=== PATIENT | female | born 1945 | race Caucasian/White ===

== ENCOUNTER 2018-05-20 02:40 | Outpatient (CLI) | payer MEDICARE, SELFPAY ==
[2018-05-20 08:56] LABS: BUN 23 mg/dL (7-18); CREATININE 1.16 mg/dL (0.55-1.02); Calcium 9.5 mg/dL (8.5-10.1); Chloride 104 mmol/L (98-107); Estimated GFR 46.19 (mL/min/1.73m2); Glucose 107 mg/dL (70-100); Potassium 3.8 mmol/L (3.5-5.1); Sodium 142 mmol/L (136-145)
[2018-05-20 09:23] LABS: Hemoglobin A1C 6.9 % (4.5-6.2)
== END 2018-05-20 03:00 ==
PROVIDERS: PCP Family Medicine; Visit Provider Family Medicine
DX: E11.9 Type 2 diabetes mellitus without complications (principal); E87.6 Hypokalemia
CPT/HCPCS: 36415; 80048; 83036

== ENCOUNTER 2018-05-27 15:27 | Outpatient (REF) | payer MEDICARE, SELFPAY ==
[2018-05-27 20:43] LABS: NT-proBNP 5371 pg/mL
== END 2018-05-27 15:47 ==
LOC: NCHCN 15:27
PROVIDERS: PCP Family Medicine; Visit Provider Specialist/Technologist Athletic Trainer
DX: I50.9 Heart failure, unspecified (principal); R60.0 Localized edema
CPT/HCPCS: 83880

== ENCOUNTER 2019-07-20 20:20 | Outpatient (REF) | payer MEDICARE, SELFPAY | END 2019-07-20 20:40 | LOC: NCHCN 20:20 | PROVIDERS: PCP Family Medicine; Visit Provider Family Medicine | DX: N39.0 Urinary tract infection, site not specified (principal) | CPT/HCPCS: 87086 ==

== ENCOUNTER 2019-08-05 08:43 | Outpatient (CLI) | payer MEDICARE, SELFPAY | END 2019-08-05 09:03 | PROVIDERS: PCP Family Medicine; Visit Provider Family Medicine | DX: N39.0 Urinary tract infection, site not specified (principal) | CPT/HCPCS: 36415; 80048; 83036; 87086 ==

== ENCOUNTER 2019-08-27 08:14 | Outpatient (CLI) | payer MEDICARE, SELFPAY ==
[2019-08-27 10:07] LABS: BUN 25 mg/dL (7-18); CREATININE 1.15 mg/dL (0.55-1.02); Calcium 9.5 mg/dL (8.5-10.1); Chloride 103 mmol/L (98-107); Estimated GFR 46.52 (mL/min/1.73m2); Glucose 209 mg/dL (74-106); Potassium 4.9 mmol/L (3.5-5.1); Sodium 141 mmol/L (136-145)
[2019-08-27 10:48] LABS: Hemoglobin A1C 8.7 % (3.8-5.6)
== END 2019-08-27 08:34 ==
PROVIDERS: PCP Family Medicine; Visit Provider Family Medicine
DX: E11.9 Type 2 diabetes mellitus without complications (principal); E87.6 Hypokalemia
CPT/HCPCS: 36415; 80048; 83036

== ENCOUNTER 2019-09-29 08:41 | Outpatient (CLI) | payer MEDICARE, SELFPAY ==
[2019-09-29 14:58] LABS: Anion Gap 10.3 mmol/L (3-11); BUN 32 mg/dL (7-18); CO2 23.7 mmol/L (21.0-32.0); CREATININE 1.51 mg/dL (0.55-1.02); Calcium 9.6 mg/dL (8.5-10.1); Chloride 101 mmol/L (98-107); Estimated GFR 33.97 (mL/min/1.73m2); Glucose 255 mg/dL (74-106); Potassium 5.5 mmol/L (3.5-5.1); Sodium 135 mmol/L (136-145)
== END 2019-09-29 09:01 ==
PROVIDERS: PCP Family Medicine; Visit Provider Internal Medicine Cardiovascular Disease
DX: I50.20 Unspecified systolic (congestive) heart failure (principal); I25.5 Ischemic cardiomyopathy; Z79.899 Other long term (current) drug therapy
CPT/HCPCS: 36415; 80048

== ENCOUNTER 2019-10-19 02:25 | Outpatient (CLI) | payer MEDICARE, SELFPAY ==
[2019-10-19 08:59] LABS: Anion Gap 9.4 mmol/L (3-11); BUN 32 mg/dL (7-18); CO2 26.6 mmol/L (21.0-32.0); CREATININE 1.39 mg/dL (0.55-1.02); Calcium 9.7 mg/dL (8.5-10.1); Chloride 103 mmol/L (98-107); Estimated GFR 37.38 (mL/min/1.73m2); Glucose 220 mg/dL (74-106); Magnesium 1.6 mg/dL (1.8-2.4); Sodium 139 mmol/L (136-145)
== END 2019-10-19 02:45 ==
PROVIDERS: PCP Family Medicine; Visit Provider Family Medicine
DX: E87.6 Hypokalemia (principal)
CPT/HCPCS: 36415; 80048; 83735

== ENCOUNTER 2020-03-28 01:40 | Outpatient (CLI) | payer MEDICARE, SELFPAY ==
[2020-03-28 09:16] LABS: HCT 35.9 % (36.0-46.0); HGB 11.8 g/dL (11.2-15.7); MCH 29.9 pg (27.0-33.0); MCHC 32.9 % (32.0-36.0); MCV 91.1 fL (80-95); MPV 11.4 fL (8.0-11.0); Platelet Count 283 10^3/uL (130-400); RBC 3.94 10^6/uL (3.93-5.22); RDW 12.4 % (11.7-14.6); RDW-SD 40.8 fL; WBC 6.83 10^3/uL (4.4-10.8)
[2020-03-28 09:24] LABS: Hemoglobin A1C 9.4 % (3.8-5.6)
[2020-03-28 10:32] LABS: ALT 17 U/L (14-59); AST 12 U/L (15-37); Alkaline Phosphatase 66 U/L (46-116); Anion Gap 9.5 mmol/L (3-11); BUN 23 mg/dL (7-18); Bilirubin, Total 0.3 mg/dL (0.2-1.0); CO2 25.5 mmol/L (21.0-32.0); CREATININE 1.29 mg/dL (0.55-1.02); Calcium 9.6 mg/dL (8.5-10.1); Calculated LDL 65 mg/dL (<100); Chloride 103 mmol/L (98-107); Cholesterol 129 mg/dL (<200); Estimated GFR 40.62 (mL/min/1.73m2); Glucose 158 mg/dL (74-106); HDL Cholesterol 29 mg/dL (40-60); Magnesium 1.6 mg/dL (1.8-2.4); Potassium 4.9 mmol/L (3.5-5.1); Sodium 138 mmol/L (136-145); Total Protein 7.4 g/dL (6.4-8.2); Triglyceride 178 mg/dL (<150)
== END 2020-03-28 02:00 ==
PROVIDERS: PCP Family Medicine; Referring Provider Internal Medicine Cardiovascular Disease; Visit Provider Family Medicine
DX: I25.5 Ischemic cardiomyopathy (principal); E87.6 Hypokalemia; E11.9 Type 2 diabetes mellitus without complications; I10 Essential (primary) hypertension; E78.5 Hyperlipidemia, unspecified
CPT/HCPCS: 36415; 80053; 80061; 85027; 83036; 83735

== ENCOUNTER 2020-09-07 01:18 | Outpatient (CLI) | payer MEDICARE, SELFPAY ==
--- NOTE | 2020-09-07 | DI.DEXA_ITS ---
EXAM: XR DEXA BONE DENSITY W/WO KELSIE CLINICAL HISTORY: SCREENING FOR OSTEOPOROSIS IN POSTMENOPAUSAL WOMAN,Z78.0,PRE RADIATION TECHNIQUE: COMPARISON: CR LUMBAR SPINE COMPLETE from 09/16/2014 FINDINGS: DEXA scan was performed according to the usual protocol. Please see the accompanying data sheets. F indings for lumbar spine scanning are T-score -0.3. Findings for left hip scanning are T-score -1.0 with left femoral neck T-score -1.5. Left forearm scanning shows T-score -1.7. IMPRESSION: Findings consistent with osteopenia according to WHO criteria. Please note that the lateral vertebral scanogram shows no evidence of a vertebral compression fractur e. RADIATION DOSE DELIVERED: Total DLP
== END 2020-09-07 01:38 ==
PROVIDERS: PCP Family Medicine; Visit Provider Family Medicine
DX: Z78.0 Asymptomatic menopausal state (principal)
CPT/HCPCS: 77080

== ENCOUNTER 2020-09-28 00:50 | Outpatient (CLI) | payer MEDICARE, SELFPAY ==
--- NOTE | 2020-09-28 | DI.US_ITS ---
EXAM: US THYROID CLINICAL HISTORY: CT SIM FOR RADIATION SHOWED MULTINODULAR GOITER,E04.2. TECHNIQUE: Ultrasound thyroid performed using standard protocol. COMPARISON: No exams were available for comparison FINDINGS: ISTHMUS: 6 mm Nodules: There is a 2.7 x 1 x 2.7 cm solid hypoechoic smoothly marginated mass. This corresponds to the finding seen on the CT scan. No internal echogenic foci are seen. The findings are consistent w ith a TI-RADS level 4 nodule. RIGHT LOBE: Size: 6.2 X 1.8 X 1.8 cm Echogenicity: Normal. Vascularity: Normal. Nodules: Multiple right thyroid nodules. No suspicious nodules are seen. There are 2 spongiform typ e nodules present. These are TI-RADS level 1 nodules. LEFT LOBE: Size: 5.9 x 2 x 1.9 cm Echogenicity: Normal. Vascularity: Normal. Nodules: Multiple thyroid nodules. There is a 1.4 x 1.4 x 1.2 cm mixed cystic and solid nodule. The solid component is hyperechoic. Echogenic foci are seen peripherally. This is a TI-RADS level 4 no dule. No other suspicious nodules are seen. OTHER FINDINGS: None. IMPRESSION: 1. Enlarged multinodular thyroid gland. 2. Moderately suspicious nodules (TI-RADS level 4) seen in the isthmus and the left lobe as described above. DATA REPOSITORY:
--- NOTE | 2020-09-28 14:52 | DI.CT_ITS ---
EXAM: CT CHEST WO CLINICAL HISTORY: CT SIM FOR RADIATION SHOWED NODULAR OPACITY,LUNG NODULE,R91.1. TECHNIQUE: Imaging protocol: Axial computed tomography images were obtained and coronal and sagittal reformatted images were created and reviewed. COMPARISON: CT CT RAD ONC CHEST INTER from 09/12/2020 FINDINGS: Tracheobronchial tree: Patent where visualized. Pulmonary parenchyma: There is a 7 mm noncalcified triangular nodule associated with the right minor fissure. Its location and appearance is most suggestive of an intrapulmonary lymph node. (Series 7, image 351). No other pulmonary nodules are identified. No consolidating infiltrates are seen. No architectural distortion. Mediastinum and Priscilla: No dominant adenopathy or fluid collection. Pleura: No effusion or pneumothorax. Heart: Heart is moderately enlarged. Marked coronary artery calcification is present. No pericardia l effusion. There is calcification of the aortic valve. Aorta: Thoracic aorta non-dilated. Mild atherosclerosis is present. Upper abdomen: There is bilateral nephrolithiasis. The largest stone is on the left and measures 1. 1 cm. The spleen is unchanged in appearance. Lymph nodes: Within normal limits. Thyroid gland: There are thyroid nodules present the largest is seen in the isthmus and measures 2.9 cm transversely. Soft tissues: The patient is status post left lumpectomy and left axillary node dissection. There is again seen a fluid collection in the surgical bed. Bones:No suspicious lytic or sclerotic lesions are seen in the bones. Several old/healing right rib fractures are present. IMPRESSION: 1. 7 mm noncalcified lymph node associated with the right minor fissure. Its finding is most suggest edwina of an intrapulmonary lymph node. 2. Thyroid nodules with a dominant nodule in the isthmus. Please refer to the ultrasound of the thyr oid scan for further details. 3. Status post left lumpectomy and left axillary node dissection with a fluid collection again seen i n the surgical bed. RADIATION DOSE DELIVERED: 532.51mGy.cm Total DLP 532.51mGy.cm Total DLP DATA REPOSITORY: All CT scans at this facility are submitted to the National Radiology Data Registry (NRDR) Dose Index Registry (DIR) with the [employer] ([employer]). RADIATION OPTIMIZATION: All CT scans at this facility use at least one of these dose optimization te chniques: automated exposure control; mA and/or kV adjustment per patient size (includes targeted exa ms where dose is matched to clinical indication); or iterative reconstruction.
== END 2020-09-28 00:51 | disposition home or self-care (01) ==
PROVIDERS: PCP Family Medicine; Visit Provider Radiology Radiation Oncology
DX: R91.1 Solitary pulmonary nodule (principal); E04.2 Nontoxic multinodular goiter
CPT/HCPCS: 71250; 76536

== ENCOUNTER 2020-10-05 01:23 | Outpatient (CLI) | payer MEDICARE, SELFPAY ==
--- NOTE | 2020-10-05 | DI.MRI_ITS ---
EXAM: MR ABDOMEN WO CLINICAL HISTORY: BREAST CA,CT SIM FOR RADIATION SHOWED LOBULATED APPEARANCE SPLEEN,? LESION TECHNIQUE: Multiplanar multisequence MRA of the Abdomen was performed. COMPARISON: MR MRI - LUMBAR SPINE WO CONTRAST from 06/26/2015 MR MRI - LUMBAR SPINE WO CONTRAST from 06/26/[address] CHEST WO from 09/28/[address] CHEST WO from 09/28/2020 FINDINGS: No pleural effusions are seen at the lung bases. The liver and spleen show normal signal. There is no evidence of a splenic mass. No liver lesions are identified. The gallbladder, adrenals and pancr eas are unremarkable. There is no biliary dilatation. There are few tiny renal cysts. There is no evidence of hydronephrosis. No bowel dilatation or ascites is seen. There are degenerative disc gamaliel nges at L2-3. A nonobstructing stone is seen in the mid left kidney. Other smaller stones were seen on a previous CT which are not well demonstrated on the current exam. IMPRESSION: No evidence of a splenic mass. The inferior portion of the spleen has a mildly lobulated contour whi ch is within normal limits of variation. DATA REPOSITORY:
[2020-10-05 09:41] LABS: CREATININE 1.7 mg/dL (0.55-1.02); Estimated GFR 29.54 (mL/min/1.73m2)
== END 2020-10-05 01:24 ==
LOC: DI 01:24
PROVIDERS: PCP Family Medicine; Visit Provider Radiology Radiation Oncology
DX: R93.5 Abnormal findings on diagnostic imaging of other abdominal regions, including retroperitoneum (principal)
CPT/HCPCS: 74181; 82565

== ENCOUNTER 2021-01-30 03:35 | Outpatient (CLI) | payer MEDICARE, SELFPAY ==
[2021-01-30 12:51] LABS: Abs Immature Grans 0.02 10^3/uL (0.0-0.06); Absolute Basophil Count 0.06 10^3/uL (0.0-0.2); Absolute Lymphocyte Count 0.83 10^3/uL (1.2-3.4); Absolute Monocyte Count 0.54 10^3/uL (0.1-0.8); Absolute Neutrophil Count 4.41 10^3/uL (1.2-6.7); Eosinophils % 3.3; HCT 32.3 % (36.0-46.0); Immature Grans % 0.3; Lymphocytes % 13.7; MCH 29.6 pg (27.0-33.0); MCV 95.6 fL (80-95); MPV 11.6 fL (8.0-11.0); Monocytes % 8.9; Neutrophils % 72.8; Nucleated RBC 0 %; Platelet Count 301 10^3/uL (130-400); RBC 3.38 10^6/uL (3.93-5.22); RDW 15.9 % (11.7-14.6); RDW-SD 56.2 fL; WBC 6.06 10^3/uL (4.4-10.8)
[2021-01-30 13:06] LABS: Hemoglobin A1C 7.6 % (<5.7)
[2021-01-30 13:24] LABS: ALT 18 U/L (14-59); AST 11 U/L (15-37); Alkaline Phosphatase 65 U/L (46-116); Anion Gap 8.9 mmol/L (3-11); BUN 29 mg/dL (7-18); Bilirubin, Total 0.7 mg/dL (0.2-1.0); CO2 26.1 mmol/L (21.0-32.0); CREATININE 1.6 mg/dL (0.55-1.02); Calcium 9.4 mg/dL (8.5-10.1); Chloride 103 mmol/L (98-107); Glucose 167 mg/dL (74-106); Potassium 5.7 mmol/L (3.5-5.1); Sodium 138 mmol/L (136-145); Total Protein 7.3 g/dL (6.4-8.2)
== END 2021-01-30 03:36 | disposition home or self-care (01) ==
LOC: LOS 03:36
PROVIDERS: PCP Family Medicine; Visit Provider Family Medicine
DX: E11.9 Type 2 diabetes mellitus without complications (principal); C50.912 Malignant neoplasm of unspecified site of left female breast
CPT/HCPCS: 36415; 80053; 83036; 85025

== ENCOUNTER 2021-02-05 11:41 | Outpatient (REF) | payer MEDICARE, SELFPAY ==
[2021-02-05 14:21] LABS: HCT 32.1 % (36.0-46.0); HGB 10.1 g/dL (11.2-15.7)
[2021-02-05 15:04] LABS: BUN 35 mg/dL (7-18); CREATININE 1.5 mg/dL (0.55-1.02); Calcium 9.6 mg/dL (8.5-10.1); Chloride 106 mmol/L (98-107); Estimated GFR 34.04 (mL/min/1.73m2); Glucose 155 mg/dL (74-106); Potassium 5.3 mmol/L (3.5-5.1); Sodium 141 mmol/L (136-145); Vitamin B12 297 pg/mL (193-986)
[2021-02-05 15:05] LABS: Folate > 20.0 ng/mL (8.6-20.0)
[2021-02-12 11:46] LABS: Methylmalonic Acid 0.42 nmol/mL (<=0.40)
== END 2021-02-05 11:42 | disposition home or self-care (01) ==
LOC: NCHCN 11:41
PROVIDERS: PCP Family Medicine; Visit Provider Family Medicine
DX: D64.9 Anemia, unspecified (principal); E11.9 Type 2 diabetes mellitus without complications; Z00.00 Encounter for general adult medical examination without abnormal findings
CPT/HCPCS: 80048; 80186; 82607; 82746; 85014; 85018

== ENCOUNTER 2021-03-29 12:30 | Outpatient (REF) | payer MEDICARE, SELFPAY ==
[2021-03-29 19:48] LABS: HCT 36.5 % (36.0-46.0); HGB 11.7 g/dL (11.2-15.7); MCH 28.7 pg (27.0-33.0); MCHC 32.1 % (32.0-36.0); MCV 89.7 fL (80-95); MPV 11.8 fL (8.0-11.0); Platelet Count 308 10^3/uL (130-400); RBC 4.07 10^6/uL (3.93-5.22); RDW 13.5 % (11.7-14.6); RDW-SD 44.5 fL; WBC 7.23 10^3/uL (4.4-10.8)
[2021-03-29 19:50] LABS: ESR 25 mm/hr (0-30)
[2021-03-29 19:59] LABS: ALT 16 U/L (14-59); AST 15 U/L (15-37); Albumin 3.8 g/dL (3.4-5.0); Alkaline Phosphatase 71 U/L (46-116); Anion Gap 8.3 mmol/L (3-11); BUN 24 mg/dL (7-18); Bilirubin, Total 0.3 mg/dL (0.2-1.0); C-Reactive Protein 0.73 mg/dL (0.0-0.3); CO2 25.7 mmol/L (21.0-32.0); CREATININE 1.3 mg/dL (0.55-1.02); Calcium 9.8 mg/dL (8.5-10.1); Chloride 105 mmol/L (98-107); Estimated GFR 40.15 (mL/min/1.73m2); Glucose 138 mg/dL (74-106); Potassium 4.8 mmol/L (3.5-5.1); Sodium 139 mmol/L (136-145); Total Protein 7.5 g/dL (6.4-8.2)
== END 2021-03-29 12:31 | disposition home or self-care (01) ==
LOC: NCHCN 12:30
PROVIDERS: PCP Family Medicine; Visit Provider Family Medicine
DX: D64.9 Anemia, unspecified (principal); R19.7 Diarrhea, unspecified; R10.9 Unspecified abdominal pain; I25.10 Atherosclerotic heart disease of native coronary artery without angina pectoris
CPT/HCPCS: 80053; 85027; 85652; 86140

== ENCOUNTER 2021-05-04 11:28 | Outpatient (REF) | payer MEDICARE, SELFPAY ==
[2021-05-04 19:51] LABS: ESR 26 mm/hr (0-30)
[2021-05-04 19:57] LABS: ALT 17 U/L (14-59); AST 15 U/L (15-37); Albumin 4.1 g/dL (3.4-5.0); Alkaline Phosphatase 74 U/L (46-116); Anion Gap 11.5 mmol/L (3-11); BUN 28 mg/dL (7-18); Bilirubin, Total 0.6 mg/dL (0.2-1.0); C-Reactive Protein 0.22 mg/dL (0.0-0.3); CO2 25.5 mmol/L (21.0-32.0); CREATININE 1.7 mg/dL (0.55-1.02); Chloride 103 mmol/L (98-107); Creatine Kinase 35 U/L (26-192); Estimated GFR 29.46 (mL/min/1.73m2); Glucose 123 mg/dL (74-106); Potassium 5.1 mmol/L (3.5-5.1); Sodium 140 mmol/L (136-145); Total Protein 7.7 g/dL (6.4-8.2)
== END 2021-05-04 11:29 | disposition home or self-care (01) ==
LOC: NCHCN 11:28
PROVIDERS: PCP Family Medicine; Referring Provider Family Medicine; Visit Provider Family Medicine
DX: E53.8 Deficiency of other specified B group vitamins (principal); E87.6 Hypokalemia; M79.18 Myalgia, other site
CPT/HCPCS: 80053; 80186; 82550; 85652; 86140

== ENCOUNTER 2021-05-25 02:26 | Outpatient (CLI) | payer MEDICARE, SELFPAY ==
--- NOTE | 2021-05-25 | DI.US_ITS ---
Exam(s) US CAROTID EXAM: US CAROTID CLINICAL HISTORY: LT CAROTID BRUIT,R09.89,? STENOSIS. TECHNIQUE: Ultrasound carotids performed using grayscale, color-flow, and spectral Doppler imaging. COMPARISON: No exams were available for comparison FINDINGS: RIGHT CAROTID ARTERY: Plaque: Calcific plaque is seen in the carotid bulb, common carotid artery and the proximal ICA. Velocity elevation: None. LEFT CAROTID ARTERY: Plaque: Calcific plaque is seen in the carotid bulb. Velocity elevation: None. VERTEBRAL ARTERIES: Antegrade flow. Measurements: R Bulb: 78.4cm/s PS / 17.4cm/s ED R CCA: 69.4cm/s PS / 17.4cm/s ED R ECA: PS / ED R ICA Prox: 82.3cm/s PS /21.2cm/s ED R ICA Mid: 87.6cm/s PS / 28.9cm/s ED R ICA Distal: 90.9cm/s PS /30.6cm/s ED R Vert: 60.3cm/s PS / 19.8cm/s ED R SVR: 1.31 R DVR: 1.76 L Bulb: 67.8cm/s PS /13.2cm/s ED L CCA: 81cm/s PS / 19cm/s ED L ECA: PS / ED L ICA Prox:68.8cm/s PS / 17.4cm/s ED L ICA Mid: 73.2cm/sPS / 26cm/s ED L ICA Distal: 72.1cm/s PS / 24.6cm/s ED L Vert: 44cm/s PS / 14.8cm/s ED L SVR: 0.9 L DVR: 1.37 IMPRESSION: No evidence for hemodynamically significant carotid stenosis. Criteria for Carotid Stenosis: Normal: ICA PSV <125 cm/s no plaque or intimal thickening is visible. <50% stenosis: ICA PSV <125 cm/s and plaque or intimal thickening is visible. 50-69% stenosis: ICA PSV is 125-250 cm/s and plaque is visible. >70% stenosis to near occlusion: ICA PSV >250 cm/s with visible plaque and luminal narrowing. DATA REPOSITORY:
== END 2021-05-25 02:46 ==
PROVIDERS: PCP Family Medicine; Visit Provider Internal Medicine Cardiovascular Disease
DX: R09.89 Other specified symptoms and signs involving the circulatory and respiratory systems (principal); I77.89 Other specified disorders of arteries and arterioles
CPT/HCPCS: 93880

== ENCOUNTER 2021-07-24 01:35 | Outpatient (CLI) | payer MEDICARE, SELFPAY ==
--- NOTE | 2021-07-24 | DI.US_ITS ---
APPROVED REPORT EXAM: Comprehensive 2D, Doppler, and color-flow Echocardiogram Patient Location: Out-Patient [employer] Technician: Rosibel Mercer RDCS (AE) Indications: CAD without again, Ischemic cardiomyopathy, breast Cancer, Thyroid Cancer Other Information Study Quality: Fair. Technically limited study due to body habitus. Conclusion Left ventricle is mildly to moderately dilated. Wall thickness is normal. Estimated ejection fracti on is 25 to 30% with severe global hypokinesis Mildly dilated and hypocontractile right ventricle. Device lead seen in the right ventricle Both atria are mildly dilated. Device lead noted in the right atrium Aortic valve is sclerotic and trileaflet without stenosis or regurgitation Mild mitral annular calcification. Moderate mitral regurgitation Normal tricuspid valve with trace to mild regurgitation. Estimated right ventricular systolic pressu re is 48 mmHg, moderate pulmonary hypertension Wall motion Left Ventricle Left ventricle is mild to moderately dilated. Left ventricular systolic function is severely decrease d. There is normal left ventricular wall thickness. There is global hypokinesis of the left ventricle . There is no ventricular septal defect visualized. LVEF is 25-30%. Right Ventricle Right ventricle is mildly dilated. Right ventricle is mildly hypokinetic. The RVSP is 48.5 mmHg. Pace maker lead is present in the right ventricle. Atria Left atrium is mildly dilated. Right atrium is mildly dilated. The interatrial septum is intact with no evidence for an atrial septal defect. Aortic Valve The Aortic valve is sclerotic. Aortic valve is trileaflet. There is no aortic valvular stenosis. No a ortic regurgitation is present. Mitral Valve Mild mitral annular calcification. No evidence of mitral valve stenosis. moderate mitral regurgitatio n. Tricuspid Valve The tricuspid valve is normal in structure. There is no tricuspid valve stenosis. Trace to mild tricu spid regurgitation. Pulmonic Valve The pulmonary valve is normal in structure. There is no pulmonic valvular stenosis. Trace pulmonic re gurgitation. Great Vessels The aortic root is normal in size. The ascending aorta is normal in size. Aortic arch is not well vis ualized. The IVC is normal in size and collapses >50% with inspiration. Pericardium There is no pericardial effusion. 2D Dimensions IVSD d PLAX 0.92 cm F: 0.6-1.0 LV Vol A2C d MOD 164.3 mL LVPW d PLAX 0.92 cm F: 0.6 - 1.0 LV Vol A4C d MOD 161.6 mL LVID d PLAX 6.18 cm F: 3.8 - 5.2 LA vol/ BSA A2C s A-L 36.3 mL/m2 LVDs 5.15 cm F: 2.2 - 3.5 LA vol/ BSA A4C s A-L 35.4 mL/m2 Ao Root d 2.80 cm F: 2.7 - 3.3 LA Vol/ BSA Biplane s A-L 36.5 mL/m2 RA Area A4C 23.42 cm2 LA Area A4C s MOD 21.15 cm2 RA Vol/ BSA A4C s A-L 47.4 mL/m2 LA Area A2C s MOD 21.78 cm2 Ao Asc Diam d 3.11 cm F: 2.3 - 3.1 LV EF A4C MOD 35.1 % LV EF Teichholz 32.9 % LV EF A2C MOD 30.2 % LVEF ([place]'s) 31.97 % F: 54 - 74 LV EF Biplane MOD 32.0 % LV Volume 126.98 mL F: 46 - 106 SV 52.60 mL LV Volume Index 69.01 mL/m2 F: 29 - 61 SV Index 28.60 mL/m2 LV Vol Biplane MOD 164.5 mL FS 15.90 % M-Mode TAPSE 1.88 cm (M/F) >1.7 LV Diastology MV E' medial 0.036 (>0.07 m/s) E/A Ratio 3.0 LV E/e MED 32.85 (<14) MV E Vmax 1.18 (0.4-1.3 m/s) MV E' lateral 0.059 (>0.1 m/s) MV A Vmax 0.40 (0.4-1.3 m/s) LV E/e LAT 19.80 (<14) MV E/A Ratio 2.87 MV E/E' medial 32.86 MV E/E' lateral 19.81 Aortic Valve LVOT Area 2.63 cm2 AoV Area Vmax 2.29 cm2 LVOT Vmax 0.90 m/s AoV Area/ BSA (Vmax) 1.25 cm2/m2 LVOT Mean Jerad. 0.57 m/s HARSH Mean Jerad. 1.99 cm2 LVOT Peak Grad 3.2 mmHg HARSH Mean Jerad. Index 1.08 cm2/m2 LVOT Mean Grad 1.5 mmHg LVOT VTI 0.168 m LVOT Diam s 1.80 cm AoV Vmax 1.03 m/s Velocity Ratio 0.87 AoV Mean Jerad. 0.75 m/s AoV Peak Grad 4.3 mmHg LVOT SV 44.30 mL AoV Mean Grad 2.5 mmHg AoV VTI 0.224 m AoV Area VTI 1.98 cm2 AoV Area/ BSA (VTI) 1.08 cm/m2 Mitral Valve MV DT 206 (160-240 msec) MR Vmax 4.13 m/s MV PHT 60 msec MR VTI 1.520 m MV Area PHT 3.69 cm2 MR Peak Grad 68.3 mmHg MV VTI 0.290 m MR Mean Grad 55.8 mmHg MV Area VTI 1.53 (4.0-6.0 cm2) MR PISA Radius 0.52 cm MR EROA 0.14 cm2 MR Aliasing Velocity 0.35 m/s MR PISA 1.68 cm2 Pulmonary Valve PV Vmax 0.72 (0.5-1.5 m/s) RVOT Peak Gr. 0.90 mmHg PV Peak Grad 2.1 mmHg RVOT Mean Gr. 0.45 mmHg PV Mean Grad 1.0 mmHg RVOT VTI 0.101 m PV VTI 0.134 m RVOT Vmax 0.47 m/s Tricuspid Valve TR Peak Grad 45.5 mmHg TR Vmax 3.37 m/s RA Pressure 3.00 mmHg RVSP (TR) 48.5 mmHg
== END 2021-07-24 01:55 ==
PROVIDERS: PCP Family Medicine; Visit Provider Internal Medicine Cardiovascular Disease
DX: I25.10 Atherosclerotic heart disease of native coronary artery without angina pectoris (principal); I25.5 Ischemic cardiomyopathy; Z85.3 Personal history of malignant neoplasm of breast; Z85.850 Personal history of malignant neoplasm of thyroid; Z95.0 Presence of cardiac pacemaker; I34.0 Nonrheumatic mitral (valve) insufficiency; I27.20 Pulmonary hypertension, unspecified
CPT/HCPCS: 93306

== ENCOUNTER 2021-08-09 14:38 | Outpatient (REF) | payer MEDICARE, SELFPAY ==
[2021-08-09 19:31] LABS: HCT 30.8 % (36.0-46.0); HGB 9.7 g/dL (11.2-15.7); MCH 30.1 pg (27.0-33.0); MCHC 31.5 % (32.0-36.0); MCV 95.7 fL (80-95); MPV 11.3 fL (8.0-11.0); Platelet Count 381 10^3/uL (130-400); RBC 3.22 10^6/uL (3.93-5.22); RDW-SD 51.8 fL; WBC 7.74 10^3/uL (4.4-10.8)
[2021-08-09 19:55] LABS: ALT 21 U/L (14-59); AST 14 U/L (15-37); Albumin 3.8 g/dL (3.4-5.0); Alkaline Phosphatase 71 U/L (46-116); Anion Gap 11.5 mmol/L (3-11); BUN 31 mg/dL (7-18); Bilirubin, Total 0.5 mg/dL (0.2-1.0); CO2 23.5 mmol/L (21.0-32.0); CREATININE 1.6 mg/dL (0.55-1.02); Calcium 9.1 mg/dL (8.5-10.1); Chloride 102 mmol/L (98-107); Glucose 204 mg/dL (74-106); NT-proBNP 21240 pg/mL (<300); Potassium 4.5 mmol/L (3.5-5.1); Sodium 137 mmol/L (136-145); Total Protein 7.3 g/dL (6.4-8.2)
== END 2021-08-09 14:39 | disposition home or self-care (01) ==
LOC: NCHCN 14:38
PROVIDERS: PCP Family Medicine; Visit Provider Family Medicine
DX: I25.10 Atherosclerotic heart disease of native coronary artery without angina pectoris (principal); I10 Essential (primary) hypertension; D64.9 Anemia, unspecified; E11.9 Type 2 diabetes mellitus without complications; I50.9 Heart failure, unspecified
CPT/HCPCS: 80053; 85027; 83036; 83735; 83880

== ENCOUNTER 2021-08-29 14:58 | Outpatient (REF) | payer MEDICARE, SELFPAY ==
[2021-08-29 12:39] LABS: Abs Immature Grans 0.02 10^3/uL (0.0-0.06); Absolute Basophil Count 0.11 10^3/uL (0.0-0.2); Absolute Lymphocyte Count 1.36 10^3/uL (1.2-3.4); Absolute Monocyte Count 0.76 10^3/uL (0.1-0.8); Absolute Neutrophil Count 4.97 10^3/uL (1.2-6.7); Basophils % 1.5; HCT 38.7 % (36.0-46.0); HGB 12.2 g/dL (11.2-15.7); Immature Grans % 0.3; Lymphocytes % 18.1; MCH 29.3 pg (27.0-33.0); MCHC 31.5 % (32.0-36.0); MCV 92.8 fL (80-95); MPV 11.9 fL (8.0-11.0); Monocytes % 10.1; Nucleated RBC 0 %; Platelet Count 357 10^3/uL (130-400); RBC 4.17 10^6/uL (3.93-5.22); RDW 13.7 % (11.7-14.6); RDW-SD 46.9 fL; WBC 7.52 10^3/uL (4.4-10.8)
[2021-08-29 12:47] LABS: Iron 101 ug/dL (50-170); Total Iron Binding Capacity 348 ug/dL (250-450); Transferrin Sat 29 % (15-50)
[2021-08-29 13:02] LABS: BUN 33 mg/dL (7-18); CREATININE 1.6 mg/dL (0.55-1.02); Calcium 9.8 mg/dL (8.5-10.1); Chloride 98 mmol/L (98-107); Ferritin 61 ng/mL (8-252); Glucose 302 mg/dL (74-106); Potassium 5.3 mmol/L (3.5-5.1); Sodium 136 mmol/L (136-145)
[2021-08-31 08:50] LABS: NT-proBNP 5445 pg/mL (<300)
== END 2021-08-29 14:59 | disposition home or self-care (01) ==
LOC: NCHCN 14:58
PROVIDERS: PCP Family Medicine; Visit Provider Family Medicine
DX: D64.9 Anemia, unspecified (principal); I10 Essential (primary) hypertension
CPT/HCPCS: 80048; 82728; 83540; 83550; 83880; 85025

== ENCOUNTER 2021-10-06 19:52 | Inpatient (IN) | payer MEDICARE, SELFPAY ==
[2021-10-06] VITALS (73 sets, daily range): BP systolic 72–110; BP diastolic 41–54; PULSE 81–102; RESP 14–29; TEMP 36.8–37.4; O2SAT 93–96
--- NOTE | 2021-10-06 20:15 | RT.EKG_ITS ---
APPROVED REPORT Exam: Resting ECG Reason for Exam: Weakness Patient Location: E HR:94 bpm ECG Measurements Heart Rate 94 AXIS MN 241 P 20 QRSd 130 QRS 21 QT 365 T 157 QTc 457 Conclusion Atrial-sensed ventricular-paced rhythm...ventricular pacing tracks p-waves
--- NOTE | 2021-10-06 20:20 | ED.GENADUL_ITS ---
Discharge Plan Disposition Patient Disposition: [facility] Condition: Fair Discharge Details Clinical Impression: Non-ST elevation GA (NSTEMI), Elevated troponin I level, Acute kidney injury Attending Provider: Clarence Bustamante Primary Care Provider: Maya Shi V ED Provider: Guillermina Parikh Discharge Data Discharge Date/Time-TO BE ENTERED AT DEPARTURE: 10/07/21 01:57 Medical Decision Making <Guillermina Parikh - Last Filed: 10/07/21 19:25> 75-year-old female with past medical history of insulin-dependent diabetes, hypertension and hypotension reports that she is unsure why she was brought to the emergency department. She states that her daughters wanted her duct out. She denies any headache, blurry vision, numbness tingling, nausea vomiting diarrhea or chest pain. Upon speaking with her he reports that today she was very tired and went to bed around 2 PM and complaining of ear pain and increased weakness and feeling very cold. He also reports that she has been disoriented. Upon initial exam she is alert and oriented x4. No focal neuro deficits noted. She states that yesterday her blood pressure was low and she is recently had a change in her losartan to half a dose. 2020: Spoke with who reports she was really tired today, he states she went to bed around 2 PM and when he went to go check on her she wasn't finishing sentences and was c/o being real cold he reports she also was c/o ear pain. EKG, cardiac work-up ordered. Critical result for initial troponin is elevated level is 194. CBC shows no leukocytosis, absolute neutrophils elevated at 10.21, sodium 134, BUN 36 creatinine 2.1 GFR is 23.09 glucose is 336. Last GFR in August was 30. CXR: FINDINGS: Tubes, catheters and devices: Triple lead cardiac device in the expected position. Lungs: No consolidation. Pleural spaces: No pleural effusion. No pneumothorax. Heart/Mediastinum: No significant cardiomegaly. Bones/joints: No acute fracture. Soft tissues: Left chest wall surgical michael. IMPRESSION: 1. Negative portable chest. 2. Chronic findings as described. Thank you for allowing us to participate in the care of your patient. Dictated and Authenticated by: Sadie Mario MD [id number]: 2-hour repeat troponin is 282. Will consult with [facility] cardiology. Patient given 300 mg Plavix, aspirin 324 mg chewable. 2313: [facility] [place], [phone]: Spoke with Dr. Calvert and [facility] with cardiology who agrees to accept patient for transfer. Accepting physician will be Dr. NOLAND. He recommends a 500 cc normal saline bolus, and a lactate be drawn. BGL 352, patient normally takes 35 units of Levemir at bedtime. This was ordered for her. Discussed plan of care with patient and who verbalized understanding and are in agreement with plan. Lab Data Lab results reviewed: Yes I reviewed the patient's lab results. Lab results narrative: Laboratory Tests Range/Units 10/06/21 10/06/21 20:37 20:37 WBC (4.4-10.8) 10^3/uL 10.76 RBC (3.93-5.22) 10^6/uL 4.04 Hgb (11.2-15.7) g/dL 11.8 Hct (36.0-46.0) % 36.1 MCV (80-95) fL 89.4 MCH (27.0-33.0) pg 29.2 MCHC (32.0-36.0) % 32.7 RDW (11.7-14.6) % 13.1 Plt Count (130-400) 10^3/uL 247 MPV (8.0-11.0) fL 11.4 H Immature Gran % 0.4 Neutrophils % 94.8 Lymphocytes % 2.5 Monocytes % 1.8 Eosinophils % 0.1 Basophils % 0.4 Nucleated RBC % % 0 Absolute Neutrophils (1.2-6.7) 10^3/uL 10.21 H Absolute Lymphocytes (1.2-3.4) 10^3/uL 0.27 L Absolute Monocytes (0.1-0.8) 10^3/uL 0.19 Absolute Eosinophils (0.0-0.7) 10^3/uL 0.01 Absolute Basophils (0.0-0.2) 10^3/uL 0.04 Sodium (136-145) mmol/L 134 L Potassium (3.5-5.1) mmol/L 4.0 Chloride (98-107) mmol/L 100 Carbon Dioxide (21.0-32.0) mmol/L 23.8 Anion Gap (3-11) mmol/L 10.2 BUN (7-18) mg/dL 36 H Creatinine (0.55-1.02) mg/dL 2.1 H Estimated GFR/1.73 m2 (mL/min/1.73m2) 23.09 Glucose (74-106) mg/dL 336 H Calcium (8.5-10.1) mg/dL 9.8 Magnesium (1.8-2.4) mg/dL 1.8 Total Bilirubin (0.2-1.0) mg/dL 0.5 AST (15-37) U/L 17 ALT (14-59) U/L 21 Alkaline Phosphatase (46-116) U/L 91 Troponin I (<or=60) ng/L 194 H* Total Protein (6.4-8.2) g/dL 8.1 Albumin (3.4-5.0) g/dL 3.6 <Domingo Smith MD - Last Filed: 10/07/21 01:23> 75-year-old female with past medical history of insulin-dependent diabetes, hypertension and hypotension reports that she is unsure why she was brought to the emergency department. She states that her daughters wanted her duct out. She denies any headache, blurry vision, numbness tingling, nausea vomiting diarrhea or chest pain. Upon speaking with her he reports that today she was very tired and went to bed around 2 PM and complaining of ear pain and increased weakness and feeling very cold. He also reports that she has been disoriented. Upon initial exam she is alert and oriented x4. No focal neuro deficits noted. She states that yesterday her blood pressure was low and she is recently had a change in her losartan to half a dose. 2020: Spoke with who reports she was really tired today, he states she went to bed around 2 PM and when he went to go check on her she wasn't finishing sentences and was c/o being real cold he reports she also was c/o ear pain. EKG, cardiac work-up ordered. Critical result for initial troponin is elevated level is 194. CBC shows no leukocytosis, absolute neutrophils elevated at 10.21, sodium 134, BUN 36 creatinine 2.1 GFR is 23.09 glucose is 336. Last GFR in August was 30. CXR: FINDINGS: Tubes, catheters and devices: Triple lead cardiac device in the expected position. Lungs: No consolidation. Pleural spaces: No pleural effusion. No pneumothorax. Heart/Mediastinum: No significant cardiomegaly. Bones/joints: No acute fracture. Soft tissues: Left chest wall surgical michael. IMPRESSION: 1. Negative portable chest. 2. Chronic findings as described. Thank you for allowing us to participate in the care of your patient. Dictated and Authenticated by: Sadie Mario MD 2312: 2-hour repeat troponin is 282. Will consult with [facility] cardiology. Patient given 300 mg Plavix, aspirin 324 mg chewable. 2313: [facility] [place], [phone]: Spoke with Dr. Calvert and [facility] with cardiology who agrees to accept patient for transfer. Accepting physician will be Dr. NOLAND. He recommends a 500 cc normal saline bolus, and a lactate be drawn. BGL 352, patient normally takes 35 units of Levemir at bedtime. This was ordered for her. Discussed plan of care with patient and who verbalized understanding and are in agreement with plan. Addendum: [facility] called to state the patient would not have a bed available till tomorrow. Patient will be admitted to Dr. Bustamante. HPI <Guillermina Parikh - Last Filed: 10/07/21 19:25> General Mode of arrival: wheelchair . Date/Time Provider Initiated Documentation: 10/06/21 20:08 . Limitations to Documentation: no limitations . Information obtained by: patient, family ( ), RN notes reviewed and old records reviewed . HPI Narrative: 75-year-old female with past medical history of insulin-dependent diabetes, hypertension and hypotension reports that she is unsure why she was brought to the emergency department. She states that her daughters wanted her duct out. She denies any headache, blurry vision, numbness tingling, nausea vomiting diarrhea or chest pain. Upon speaking with her he reports that today she was very tired and went to bed around 2 PM and complaining of ear pain and increased weakness and feeling very cold. He also reports that she has been disoriented. Upon initial exam she is alert and oriented x4. No focal neuro deficits noted. She states that yesterday her blood pressure was low and she is recently had a change in her losartan to half a dose. Related Data Home Medications Medication Instructions Recorded Confirmed metformin 1,000 mg tablet 500 mg PO BID@0800,1700 12/24/13 10/06/21 (Glucophage) omega-3 fatty acids-fish oil 300 1 ea PO DAILY 12/24/13 12/24/13 mg-1,000 mg capsule anastrozole 1 mg tablet 1 mg PO DAILY AM 10/06/21 10/06/21 anastrozole 1 mg tablet mg 10/06/21 10/06/21 aspirin 81 mg tablet,delayed 81 mg PO DAILY AM 10/06/21 10/06/21 release carvedilol 6.25 mg tablet 6.25 mg PO DAILY 10/06/21 10/06/21 famotidine 20 mg tablet 20 mg PO DAILY AM 10/06/21 10/06/21 famotidine 20 mg tablet (Pepcid AC) 20 mg PO 10/06/21 furosemide 20 mg tablet 40 mg PO DAILY AM 10/06/21 10/06/21 gabapentin 300 mg capsule 300 mg PO BID 10/06/21 10/06/21 insulin detemir U-100 100 unit/mL 35 unit SUBCUT HS 10/06/21 10/06/21 (3 mL) subcutaneous pen (Levemir FlexTouch U-100 Insulin) losartan 25 mg tablet 12.5 mg PO DAILY 10/06/21 10/06/21 Allergies Allergy/AdvReac Type Severity Reaction Status Date / Time No Known Allergies Allergy Unverified 10/06/21 20:02 General Stated Complaint: GenMedical BRYANT: 2 Review of Systems <Guillermina Parikh - Last Filed: 10/07/21 19:25> All systems reviewed & are unremarkable except as noted in HPI and below Constitutional Constitutional: Reports as per HPI, Reports chills, Reports daytime sleepiness, Reports fatigue and Reports weakness Neurologic Neurologic: Reports weakness Endocrine Endocrine: Reports fatigue PFSH <Guillermina Parikh - Last Filed: 10/07/21 19:25> All Active Problems (Updated 10/07/21 @ 13:35 by Kiarra Kay MD) Toxic metabolic encephalopathy (Acute) Acute kidney injury superimposed on chronic kidney disease (Acute) Hyperglycemia (Acute) Dental abscess (Acute) Non-ST elevation GA (NSTEMI) (Acute) Elevated troponin I level (Acute) Acute kidney injury (Acute) Encounter for screening for other viral diseases (Acute) Medical History (Updated 10/07/21 @ 13:35 by Kiarra Kay MD) Breast cancer In remission; on anastrozole therapy CAD (coronary artery disease) CKD (chronic kidney disease) Diabetes Hypertension Myocardial infarction Syncope Surgical History (Updated 10/07/21 @ 13:33 by Kiarra Kay MD) S/P cardiac cath [facility] [place] 2013 [place]HELLE S/P placement of cardiac pacemaker required a 2nd procedure to fix electrode. Social History Smoking/Tobacco Use Status: Never Smoking risk assessment performed?: Yes Alcohol Intake: never Drug use: Never Do you feel safe at home: Yes Do you feel safe in your relationship?: Yes Exam <Guillermina Parikh - Last Filed: 10/07/21 19:25> Narrative Exam Narrative: Constitutional: Alert and oriented x3. Appears stated age. Normal body habitus. Head: Normocephalic, no trauma. Eyes: Pupils PERRL, Red reflex noted, EOM's intact. Eyelids symmetrical without lesions, discharge, or swelling. ENT: Bilateral TM's WNL, External ear normal to inspection, no mastoid TTP, swelling, or erythema, Nasal turbinates WNL, no nasal discharge. Normal dentition, Posterior pharynx WNL, no exudate. Chest: RRR, Normal S1, S2, distal pulses intact. Resp: Lungs clear to auscultation bilaterally, no wheezes, rales, or rhonchi. Abdomen: Soft, non-distended, Normoactive bowel sounds all 4 quads. Musculoskeletal: Normal gait, 5/5 strength to all four extremities. Skin: No suspicious rashes or lesions. Capillary refill less than 2 sec. Neurologic: Cranial nerves II-XII intact. Alert and oriented x 3. Motor: No deficits noted. Sensory: Intact bilaterally all 4 extremities. Reflexes: DTR's intact bilaterally.. Hematologic/Lymphatic: No ecchymosis, no lymphadenopathy. Course <Guillermina Parikh - Last Filed: 10/07/21 19:25> Vital Signs Vital signs: Vital Signs Temperature 36.8 C 10/06/21 19:57 Pulse 102 H 10/06/21 19:57 Respiratory Rate 18 10/06/21 19:57 Blood Pressure 110/54 L 10/06/21 19:57 Temperature 36.8 C 10/06/21 19:57 Temperature Source Temporal Artery Scan 10/06/21 19:57 Pulse 102 H 10/06/21 19:57 Respiratory Rate 18 10/06/21 19:57 Respiratory Effort 10/06/21 20:17 Blood Pressure 110/54 L 10/06/21 19:57 Blood Pressure Position Supine 10/06/21 19:57 Oxygen Delivery Method Room Air 10/06/21 19:57 Oxygen Flow Rate 0 10/06/21 19:57 Pain Level 0 10/06/21 19:57
[2021-10-06 20:43] LABS: Abs Immature Grans 0.04 10^3/uL (0.0-0.06); Absolute Basophil Count 0.04 10^3/uL (0.0-0.2); Absolute Eosinophil Count 0.01 10^3/uL (0.0-0.7); Absolute Lymphocyte Count 0.27 10^3/uL (1.2-3.4); Absolute Monocyte Count 0.19 10^3/uL (0.1-0.8); Absolute Neutrophil Count 10.21 10^3/uL (1.2-6.7); Basophils % 0.4; Eosinophils % 0.1; HCT 36.1 % (36.0-46.0); HGB 11.8 g/dL (11.2-15.7); Immature Grans % 0.4; Lymphocytes % 2.5; MCH 29.2 pg (27.0-33.0); MCHC 32.7 % (32.0-36.0); MCV 89.4 fL (80-95); MPV 11.4 fL (8.0-11.0); Monocytes % 1.8; Neutrophils % 94.8; Nucleated RBC 0 %; Platelet Count 247 10^3/uL (130-400); RBC 4.04 10^6/uL (3.93-5.22); RDW 13.1 % (11.7-14.6); RDW-SD 42.6 fL; WBC 10.76 10^3/uL (4.4-10.8)
[2021-10-06 20:58] LABS: ALT 21 U/L (14-59); AST 17 U/L (15-37); Albumin 3.6 g/dL (3.4-5.0); Alkaline Phosphatase 91 U/L (46-116); Anion Gap 10.2 mmol/L (3-11); BUN 36 mg/dL (7-18); Bilirubin, Total 0.5 mg/dL (0.2-1.0); CO2 23.8 mmol/L (21.0-32.0); CREATININE 2.1 mg/dL (0.55-1.02); Calcium 9.8 mg/dL (8.5-10.1); Chloride 100 mmol/L (98-107); Estimated GFR 23.09 (mL/min/1.73m2); Glucose 336 mg/dL (74-106); Magnesium 1.8 mg/dL (1.8-2.4); Sodium 134 mmol/L (136-145); Total Protein 8.1 g/dL (6.4-8.2)
[2021-10-06 21:10] LABS: Troponin I 194 ng/L (<or=60)
--- NOTE | 2021-10-06 21:15 | DI.RAD_ITS ---
Exam(s) XR PORTABLE CHEST AP EXAM: XR PORTABLE CHEST AP CLINICAL HISTORY: Weakness TECHNIQUE: 2D digital imaging was performed of the chest. One image was obtained. An AP view was ob tained. COMPARISON: CR PORTABLE CHEST ONE VIEW from 12/24/[address] CHEST WO from 09/28/2020 FINDINGS: MEDIASTINUM: Normal. HEART: Normal. PULMONARY VASCULATURE: Normal. LUNGS: Clear. PLEURAL SPACE: No pleural effusion or pneumothorax. BONE:Within normal limits for the patient's age. OTHER FINDINGS:There are surgical clips over the left chest wall. There is a pacing wire in stable p osition. IMPRESSION: No acute pulmonary findings. DATA REPOSITORY: RADIATION DOSE DELIVERED:
[2021-10-06] MEDS: Aspirin 81 MG CHEW 324 MG CH (21:37)
[2021-10-06] MEDS: Normal Saline 1,000 ML 250 ML IV (21:37)
--- NOTE | 2021-10-06 21:50 | DI.VRAD_ITS ---
PROCEDURE INFORMATION: Exam: XR Chest Exam date and time: 10/06/2021 21:25 Age: 75 years old Clinical indication: Other: Weakness; Prior surgery TECHNIQUE: Imaging protocol: XR of the chest. Views: 1 view. COMPARISON: CT CHEST WO 09/28/2020 14:39 FINDINGS: Tubes, catheters and devices: Triple lead cardiac device in the expected position. Lungs: No consolidation. Pleural spaces: No pleural effusion. No pneumothorax. Heart/Mediastinum: No significant cardiomegaly. Bones/joints: No acute fracture. Soft tissues: Left chest wall surgical michael. IMPRESSION: 1. Negative portable chest. 2. Chronic findings as described. Dictated and Authenticated by: Sadie Mario MD. Ordering:WESLEY Sarmiento MD
--- NOTE | 2021-10-06 22:30 | RT.EKG_ITS ---
APPROVED REPORT Exam: Resting ECG Reason for Exam: elevated troponin. Patient Location: E HR:88 bpm ECG Measurements Heart Rate 88 AXIS UT 95 P 121 QRSd 151 QRS -40 QT 435 T 107 QTc 527 Conclusion Atrial-sensed ventricular-paced rhythm...ventricular pacing tracks p-waves
--- NOTE | 2021-10-06 22:53 | NUR.NOTE ---
pt anticipates admission and her went home after he spoke to her on the phone . Nursing Note:
--- NOTE | 2021-10-06 23:00 | RT.EKG_ITS ---
APPROVED REPORT Exam: Resting ECG Reason for Exam: elevated troponin Patient Location: E HR:82 bpm ECG Measurements Heart Rate 82 AXIS OR 188 P -11 QRSd 134 QRS 53 QT 404 T 143 QTc 471 Conclusion Atrial-sensed ventricular-paced rhythm...ventricular pacing tracks p-waves Biventricular paced rhythm...non-simultaneous bi-vent pacing
[2021-10-06 23:01] LABS: Troponin I 282 ng/L (<or=60)
[2021-10-06] MEDS: Clopidogrel 300 MG TAB PO (23:29)
[2021-10-07] VITALS (86 sets, daily range): BP systolic 50–121; BP diastolic 34–64; PULSE 73–97; RESP 13–26; TEMP 36.3–36.8; O2SAT 91–98
--- NOTE | 2021-10-07 | DI.CT_ITS ---
Exam(s) CT FACIAL WO EXAM: CT FACIAL WO CLINICAL HISTORY: concern for dental abscess. TECHNIQUE: Imaging Protocol: Axial computed tomography images with coronal and sagittal reformatted images were created and reviewed COMPARISON: No exams were available for comparison FINDINGS: There is artifact due to the patient's dental procedures. CT Face: Facial Bones: No definite fracture is noted in facial bones. Sinuses and Mastoids: There is mild mucosal thickening in the right maxillary sinus and wxmb-rr-yony rate mucosal thickening in the left maxillary sinus. There is mild mucosal thickening in the ethmoid air cells. There is complete opacification of the left frontal sinuses. The remaining visualized p aranasal sinuses are clear. No fluid levels are seen. The mastoid air cells are clear. Globes, extraocular muscles, optic nerves and retrobulbar fat: Normal. Upper aerodigestive tract: Normal. Mandible and bilateral temporomandibular joints: There is a lucency in the right maxilla (series 3, image 82). This may represent a periapical abscess. Defects in the patient's teeth in the left moses ible may represent dental caries. Soft tissues: There is a air in the soft tissues adjacent to the left mandible (series 3, image 51). IMPRESSION: 1. Periapical lucency in the right maxilla which may represent an abscess. 2. Air in the soft tissues adjacent to the left mandible which may represent infection. RADIATION DOSE DELIVERED: 691.98mGy.cm Total DLP 691.98mGy.cm Total DLP DATA REPOSITORY: All CT scans at this facility are submitted to the National Radiology Data Registry (NRDR) Dose Index Registry (DIR) with the [employer] ([employer]). RADIATION OPTIMIZATION: All CT scans at this facility use at least one of these dose optimization te chniques: automated exposure control; mA and/or kV adjustment per patient size (includes targeted exa ms where dose is matched to clinical indication); or iterative reconstruction.
[2021-10-07 00:09] LABS: Lactate 1.6 mmol/L (0.6-1.4)
[2021-10-07 00:34] LABS: NT-proBNP 13090 pg/mL (<300)
[2021-10-07 00:48] LABS: COVID-19 PCR Negative (Negative)
[2021-10-07 00:49] LABS: Source Nasal/Nares
[2021-10-07 02:05] LABS: INR 1.1 (0.9-1.1); Prothrombin Time 10.6 sec (9.3-11.0)
[2021-10-07 05:24] LABS: Bilirubin Negative (Negative); Blood Trace-lysed (Negative); Clarity Sl Cloudy (Clear); Glucose >=1000 mg/dL (Negative); Ketones 15 mg/dL (Negative); Leukocyte Esterase Trace (Negative); Nitrite Negative (Negative); Specific Gravity 1.015 (1.005-1.025); Urobilinogen 0.2 EU/dL (Up TO 0.2); pH 5.5 (5-8)
[2021-10-07 05:26] LABS: Bacteria Moderate HPF (Negative); C & S Indicated? No/Sq. Contamination; Casts Negative LPF (Negative); Crystals Negative HPF (Negative); Epithelial Cells Moderate HPF (Negative); Mucus Negative (Negative)
--- NOTE | 2021-10-07 06:46 | HPE_ITS ---
Assessment and Plan Assessment and plan (1) Non-ST elevation IA (NSTEMI): Status: Acute Assessment and plan: She does not have any electrocardiographic changes of an IA. Her troponin has been elevated twice. This will be rechecked this morning. She is receiving heparin intravenously, and clopidogrel ordered daily 75 mg as well as 81 mg of aspirin. She will be transferred to [facility] for further care when a bed is available. (2) Elevated troponin I level: Status: Acute Assessment and plan: See above. Her troponin will be rechecked this morning. (3) Acute kidney injury: Status: Acute Assessment and plan: She did receive a fluid bolus in the emergency department. She will be admitted to intravenous fluids today. Her creatinine be rechecked. (4) Diabetes: Status: Chronic Assessment and plan: Long-acting insulin will be continued but she will also be put on a sliding scale for elevated sugars through the day. History of Present Illness History of Present Illness Chief Complaint: hypotension Narrative: This 75-year-old female is admitted to the hospital because of abnormal troponin and elevated creatinine. She has a history of coronary artery disease and suffered a myocardial infarction in 2013 that was treated with stents at [facility]. She been followed by cardiology here as well as there. In January 2021 she was on a trip to [facility] where she suffered a syncopal episode and was admitted to the hospital for 4 days. She had a pacemaker implanted which required a second procedure to fix electrode. She has diabetes mellitus as well as history of chronic renal insufficiency. She had some ear pain yesterday and was quite sleepy throughout the day. Her home blood pressures have been low intermittently. She had been on Entresto from Dr. Hernandez, the icer machine operator but this was stopped as a 30-day free trial. Ended. She was then placed on losartan because of low blood pressures the dose was cut to 6.25 mg twice a day and then eventually to once a day. She has still been getting intermittent low blood pressures of 80 systolic at home. Because of the somnolence and severe pain she was brought to the emergency department last night. She was evaluated by emergency staff and was found to have 2 elevated troponins. Her electrocardiogram showed paced rhythm. [facility] was consulted and she is currently on the list to be transferred today when a bed is available. She was given clopidogrel, aspirin and started on intravenous heparin. She feels fine at the present time. She says that her blood sugars have not been under very good control with the once a day insulin and has talked to her doctor about whether she should be on insulin more frequently. She denies any chest pain or discomfort in her chest or abdomen or back. She had some chills yesterday. She does not use alcohol or tobacco. She has been vaccinated and received a booster for Covid 19. She not been around anyone else been sick or traveled recently. Review of Systems Constitutional Constitutional: Reports chills, Reports fatigue and Denies fever(s) Cardiovascular Cardiovascular: Denies chest pain, Denies syncope, Denies palpitations and Denies dyspnea Respiratory Respiratory: Denies cough, Denies dyspnea and Denies wheezing Gastrointestinal Gastrointestinal: Denies abdominal pain, Denies heartburn, Denies diarrhea, Denies nausea and Denies vomiting Genitourinary Genitourinary: Denies difficulty voiding Neurologic Neurologic: Denies syncope Comments: Very somnolent throughout the day yesterday. Endocrine Endocrine: Reports fatigue and Denies palpitations Allergic/Immunologic Allergic/Immunologic: Denies wheezing PFSH All Active Problems (Updated 10/07/21 @ 06:59 by Clarence Bustamante MD) Diabetes (Chronic) Non-ST elevation IA (NSTEMI) (Acute) Elevated troponin I level (Acute) Acute kidney injury (Acute) Encounter for screening for other viral diseases (Acute) Social History Smoking/Tobacco Use Status: Never Smoking risk assessment performed?: Yes Alcohol Intake: never Drug use: Never Do you feel safe at home: Yes Do you feel safe in your relationship?: Yes Meds Allergies and Home Medications Allergies Allergy/AdvReac Type Severity Reaction Status Date / Time No Known Allergies Allergy Unverified 10/06/21 20:02 Home Medications Medication Instructions Recorded Confirmed Type metformin 1,000 mg tablet 500 mg PO BID@0800,1700 12/24/13 10/06/21 History (Glucophage) omega-3 fatty acids-fish oil 300 1 ea PO DAILY 12/24/13 12/24/13 History mg-1,000 mg capsule anastrozole 1 mg tablet 1 mg PO DAILY AM 10/06/21 10/06/21 History anastrozole 1 mg tablet mg 10/06/21 10/06/21 History aspirin 81 mg tablet,delayed 81 mg PO DAILY AM 10/06/21 10/06/21 History release carvedilol 6.25 mg tablet 6.25 mg PO DAILY 10/06/21 10/06/21 History famotidine 20 mg tablet 20 mg PO DAILY AM 10/06/21 10/06/21 History famotidine 20 mg tablet (Pepcid AC) 20 mg PO 10/06/21 History furosemide 20 mg tablet 40 mg PO DAILY AM 10/06/21 10/06/21 History gabapentin 300 mg capsule 300 mg PO BID 10/06/21 10/06/21 History insulin detemir U-100 100 unit/mL 35 unit SUBCUT HS 10/06/21 10/06/21 History (3 mL) subcutaneous pen (Levemir FlexTouch U-100 Insulin) losartan 25 mg tablet 12.5 mg PO DAILY 10/06/21 10/06/21 History Exam Const General: cooperative, healthy appearing, comfortable, no acute distress and not ill appearing Orientation: alert, awake and oriented x3 Neck Neck: normal visual inspection, no lymphadenopathy and no JVD Thyroid: thyroid normal Resp Effort & Inspection: normal respiratory effort and able to speak in complete sentences Auscultation: clear to auscultation bilaterally, no rales and no rhonchi Cardio Rate: regular rate Rhythm: regular rhythm Heart Sounds: S1 normal, S2 normal, no gallops and no murmurs GI Inspection: normal to inspection Palpation: soft, no hepatosplenomegaly and nontender Extrem General: normal to inspection, no pedal edema and no calf tenderness Results Labs Result diagrams: 10/06/21 20:37 10/06/21 20:37 Labs: Laboratory Results - last 24 hr 10/06/21 10/06/21 10/06/21 20:37 20:37 22:23 WBC 10.76 RBC 4.04 Hgb 11.8 Hct 36.1 MCV 89.4 MCH 29.2 MCHC 32.7 RDW 13.1 Plt Count 247 MPV 11.4 H Immature Gran % 0.4 Neutrophils % 94.8 Lymphocytes % 2.5 Monocytes % 1.8 Eosinophils % 0.1 Basophils % 0.4 Nucleated RBC % 0 Absolute Neutrophils 10.21 H Absolute Lymphocytes 0.27 L Absolute Monocytes 0.19 Absolute Eosinophils 0.01 Absolute Basophils 0.04 PT INR APTT VBG Lactate Sodium 134 L Potassium 4.0 Chloride 100 Carbon Dioxide 23.8 Anion Gap 10.2 BUN 36 H Creatinine 2.1 H Estimated GFR/1.73 m2 23.09 Glucose 336 H Calcium 9.8 Magnesium 1.8 Total Bilirubin 0.5 AST 17 ALT 21 Alkaline Phosphatase 91 Troponin I 194 H* 282 H* NT-Pro-B Natriuret Pep Total Protein 8.1 Albumin 3.6 Urine Color Urine Clarity Urine pH Ur Specific [place] Urine Protein Urine Ketones Urine Blood Urine Nitrite Urine Bilirubin Urine Urobilinogen Ur Leukocyte Esterase Urine RBC Urine WBC Ur Epithelial Cells Urine Crystals Urine Bacteria Urine Casts Urine Mucus Ur Culture Indicated? Urine Glucose COVID-19 Source SARS-CoV-2 (PCR) 10/07/21 10/07/21 10/07/21 00:01 00:01 00:01 WBC RBC Hgb Hct MCV MCH MCHC RDW Plt Count MPV Immature Gran % Neutrophils % Lymphocytes % Monocytes % Eosinophils % Basophils % Nucleated RBC % Absolute Neutrophils Absolute Lymphocytes Absolute Monocytes Absolute Eosinophils Absolute Basophils PT INR APTT VBG Lactate 1.6 H Sodium Potassium Chloride Carbon Dioxide Anion Gap BUN Creatinine Estimated GFR/1.73 m2 Glucose Calcium Magnesium Total Bilirubin AST ALT Alkaline Phosphatase Troponin I NT-Pro-B Natriuret Pep 42418 H Total Protein Albumin Urine Color Urine Clarity Urine pH Ur Specific [place] Urine Protein Urine Ketones Urine Blood Urine Nitrite Urine Bilirubin Urine Urobilinogen Ur Leukocyte Esterase Urine RBC Urine WBC Ur Epithelial Cells Urine Crystals Urine Bacteria Urine Casts Urine Mucus Ur Culture Indicated? Urine Glucose COVID-19 Source Nasal/Nares SARS-CoV-2 (PCR) Negative 10/07/21 10/07/21 01:35 05:00 WBC RBC Hgb Hct MCV MCH MCHC RDW Plt Count MPV Immature Gran % Neutrophils % Lymphocytes % Monocytes % Eosinophils % Basophils % Nucleated RBC % Absolute Neutrophils Absolute Lymphocytes Absolute Monocytes Absolute Eosinophils Absolute Basophils PT 10.6 INR 1.1 APTT 19.0 L VBG Lactate Sodium Potassium Chloride Carbon Dioxide Anion Gap BUN Creatinine Estimated GFR/1.73 m2 Glucose Calcium Magnesium Total Bilirubin AST ALT Alkaline Phosphatase Troponin I NT-Pro-B Natriuret Pep Total Protein Albumin Urine Color Yellow Urine Clarity Sl Cloudy Urine pH 5.5 Ur Specific [place] 1.015 Urine Protein 30 H Urine Ketones 15 H Urine Blood Trace-lysed H Urine Nitrite Negative Urine Bilirubin Negative Urine Urobilinogen 0.2 Ur Leukocyte Esterase Trace H Urine RBC 3-5 H Urine WBC 10-20 H Ur Epithelial Cells Moderate Urine Crystals Negative Urine Bacteria Moderate Urine Casts Negative Urine Mucus Negative Ur Culture Indicated? No/Sq. Contamination Urine Glucose >=1000 H COVID-19 Source SARS-CoV-2 (PCR) Last Vital Signs Temp 36.8 C 10/07/21 03:04 Pulse 80 10/07/21 01:45 Resp 15 10/07/21 04:00 BP 121/64 10/07/21 02:55 Pulse Ox 95 10/07/21 04:00
[2021-10-07] MEDS: SODIUM CHLORIDE 0.45% 1,000 ML 100 ML IV (07:14)
--- NOTE | 2021-10-07 07:15 | RT.EKG_ITS ---
APPROVED REPORT Exam: Resting ECG Reason for Exam: atypical chest pain Patient Location: I HR:83 bpm ECG Measurements Heart Rate 83 AXIS NH 171 P -5 QRSd 128 QRS 18 QT 351 T 149 QTc 413 Conclusion Atrial-sensed ventricular-paced complexes...other complexes also detected No further analysis attempted due to paced rhythm
[2021-10-07] MEDS: Normal Saline Flush 10 ML SYR IVP (07:20)
[2021-10-07] MEDS: Ondansetron 4 MG/2 ML VIAL (08:10)
[2021-10-07] MEDS: Insulin Aspart 300 UNITS/3 ML PEN SC ×2 (08:14→14:15)
[2021-10-07] MEDS: Gabapentin 300 MG CAP PO (08:15)
[2021-10-07] MEDS: Carvedilol 6.25 MG TAB PO (08:15)
[2021-10-07] MEDS: Clopidogrel 75 MG TAB PO (08:15)
--- NOTE | 2021-10-07 08:15 | INITIAL_ITS ---
- If Service Date Differs Date of service: 10/07/21 Time of Service: 08:15 Care Management Initial Assess REASON FOR HOSPITALIZATION:: NSTEMI PAST MEDICAL HISTORY/PAST SURGICAL HISTORY:: All Active Problems (Updated 10/07/21 @ 06:59 by Clarence Bustamante MD). Diabetes (Chronic). Non-ST elevation IN (NSTEMI) (Acute). Elevated troponin I level (Acute). Acute kidney injury (Acute). Encounter for screening for other viral diseases (Acute) PREVIOUS FUNCTIONAL STATUS/SOCIAL/FAMILY SUPPORTS:: Kamryn is retired and lives in [place] [facility] with her Sancho and daughter Los. She has four adult daughters (Corazon, Marlys, Estela and Los) three of which live out of state. Kamryn is retired, drives and is independent at baseline. CURRENT FUNCTIONAL STATUS:: Kamryn was lying in bed when CM met with her. She was A&OX3 and easily engaged in conversation. She is currently NPO and reportedly feels aggitated because she is very thirsty, RN will offer glycerin swabs. She would like to charge her phone, RN will offer a phone primer charger. Kamryn is currently waiting to see if she is transferring to [facility], and has been keeping her family members up to date. ADVANCE DIRECTIVES:: None on file at [facility]. Kamryn reports that she completed them several years ago. Has patient been provided with info about the portal/API?: Yes Did the patient sign up for the portal?: Yes (Prior to admission) CODE STATUS:: Full Code INSURANCE COVERAGE / FINANCIAL ISSUES:: [place]. Medicare CURRENT HOME/COMMUNITY SERVICES/EQUIPMENT:: None PRIMARY CARE PHYSICIAN:: Maya Shi PATIENT/FAMILY EDUCATION NEEDS:: Review discharge instructions, medications, limitations and plan to follow up with community providers. ask me three. TRANSPORTATION:: Dependent on disposition. If transferring to [facility] she will transport via EMS arranged by supervising RN. If discharging home she will transport via private vehicle with family. PLAN:: Anticipate Kamryn will transfer to [facility] for further cardiac intervention via EMS vs discharge home via private vehicle with family when medically ready. [facility] services may be ordered at discharge, if indicated. Kamryn will follow up with community providers and discharge plan of care as prescribed.
[2021-10-07 08:21] LABS: HCT 31.7 % (36.0-46.0); HGB 10.5 g/dL (11.2-15.7); MCH 29.3 pg (27.0-33.0); MCHC 33.1 % (32.0-36.0); MCV 88.5 fL (80-95); MPV 11.3 fL (8.0-11.0); Platelet Count 209 10^3/uL (130-400); RBC 3.58 10^6/uL (3.93-5.22); RDW 13.3 % (11.7-14.6); RDW-SD 43.5 fL; WBC 15.43 10^3/uL (4.4-10.8)
[2021-10-07 08:33] LABS: PTT Activated 47.3 sec (21.0-27.5)
[2021-10-07] MEDS: Pantoprazole 40 MG VIAL IVP (08:33)
[2021-10-07 08:36] LABS: Anion Gap 11.7 mmol/L (3-11); BUN 36 mg/dL (7-18); CO2 20.3 mmol/L (21.0-32.0); CREATININE 1.8 mg/dL (0.55-1.02); Calcium 9.3 mg/dL (8.5-10.1); Chloride 101 mmol/L (98-107); Estimated GFR 27.58 (mL/min/1.73m2); Glucose 337 mg/dL (74-106); Potassium 4.3 mmol/L (3.5-5.1); Sodium 133 mmol/L (136-145)
[2021-10-07 08:45] LABS: Troponin I 746 ng/L (<or=60)
[2021-10-07 10:07] LABS: Bilirubin Negative (Negative); Blood Trace-lysed (Negative); Clarity Clear (Clear); Glucose >=1000 mg/dL (Negative); Ketones 15 mg/dL (Negative); Leukocyte Esterase Negative (Negative); Nitrite Negative (Negative); Urobilinogen 0.2 EU/dL (Up TO 0.2); pH 5.5 (5-8)
[2021-10-07 10:17] LABS: Bacteria Moderate HPF (Negative); C & S Indicated? No/Sq. Contamination; Casts Negative LPF (Negative); Crystals Negative HPF (Negative); Epithelial Cells Moderate HPF (Negative); Mucus Trace (Negative); WBC 0-2 HPF (0-5)
[2021-10-07 11:02] LABS: Lab Add On Test DONE
[2021-10-07 11:39] LABS: Procalcitonin 20.2 ng/mL
--- NOTE | 2021-10-07 11:48 | DI.VRAD_ITS ---
PROCEDURE INFORMATION: Exam: CT Maxillofacial Without Contrast Exam date and time: 10/07/2021 10:58 AM Age: 75 years old Clinical indication: Other: Concern for dental abscess; Additional info: Concern for dental abscess, unable to do contrast per Dr. Kay TECHNIQUE: Imaging protocol: Computed tomography images of the face without contrast. Radiation optimization: All CT scans at this facility use at least one of these dose optimization techniques: automated exposure control; mA and/or kV adjustment per patient size (includes targeted exams where dose is matched to clinical indication); or iterative reconstruction. COMPARISON: SD US CAROTID 05/25/2021 7:06 AM FINDINGS: Orbital cavity: Orbits are normal. Globes are unremarkable. Bones/joints: Significant artifact in the maxilla and mandible from the metallic densities. Paranasal sinuses: Mucoperiosteal thickening in the maxillary sinuses and ethmoid sinuses may represent mild sinusitis.. Soft tissues: Air in the soft tissues adjacent to the left mandible. Series 3, image [id number] may indicate infection.. Dental: Periapical lucencies in the right maxilla (series 3, image [id number]) may represent periapical abscess. Defects in teeth in the left mandible may represent dental caries. IMPRESSION: 1. Periapical lucencies in the right maxilla (series 3, image [id number]) may represent periapical abscess. 2. Air in the soft tissues adjacent to the left mandible. Series 3, image [id number] may indicate infection.. 3. Mucoperiosteal thickening in the maxillary sinuses and ethmoid sinuses may represent mild sinusitis.. Dictated and Authenticated by: Kevin Khanna MD. Ordering:MATT Plunkett MD
[2021-10-07] MEDS: AMPICILLIN/SULBACTAM 3 GM in Normal Saline 100 ML IVPB ×2 (12:10→17:19)
[2021-10-07 12:17] LABS: C-Reactive Protein 15.51 mg/dL (0.0-0.3)
[2021-10-07 12:22] LABS: Anion Gap 9.1 mmol/L (3-11); BUN 35 mg/dL (7-18); CO2 21.9 mmol/L (21.0-32.0); CREATININE 1.9 mg/dL (0.55-1.02); Calcium 9.4 mg/dL (8.5-10.1); Chloride 102 mmol/L (98-107); Estimated GFR 25.91 (mL/min/1.73m2); Glucose 232 mg/dL (74-106); Potassium 4.2 mmol/L (3.5-5.1); Sodium 133 mmol/L (136-145)
[2021-10-07 12:25] LABS: Troponin I 1088 ng/L (<or=60)
--- NOTE | 2021-10-07 13:21 | DSE_ITS ---
Date of service: 10/07/21 Time of Service: DS: Diagnosis Discharge Diagnosis (1) Non-ST elevation CT (NSTEMI): Status: Acute (2) Dental abscess: Status: Acute (3) Bacteremia: Status: Suspected Asessment and Plan: Suspected (4) Pacemaker infection: Status: Suspected Asessment and Plan: Suspected (5) Hypertension: (6) Acute kidney injury superimposed on chronic kidney disease: Status: Acute (7) Diabetes: (8) Hyperglycemia: Status: Acute Discharge Plan Disposition Patient Disposition: [facility] Condition: Fair Discharge Details Reason For Visit: NSTEMI Admit Date/Time: 10/07/21 01:21 Admit Provider: Clarence Bustamante Attending Provider: Clarence Bustamante Primary Care Provider: Maya Shi V Hospital Course Hospital Course: Ms Farmer is a 75 year old female with PMHx of CAD s/p CT/stent ([facility] 2013), as well as h/o pacemaker placement in 01/2021 in [place] for a syncopal episode (required a 2nd procedure to fix electrode), IDDM2, HTN, CKD, breast cancer in remission, who was admitted to [facility] ICU under the hospitalist service on 10/07/21 for NSTEMI. The patient was brought to the ED after somnolence, chills, and complaints of L ear and jaw pain at home. The patient did not have evidence of acute ischemia on her EKGs, but did have an elevated troponin I of 194 ng/L, which continued to go up to 282 ng/L, 746 ng/L and finally to 1088 ng/L. 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 With [facility] cardiology's recommendation, the patient was treated with aspirin, plavix, and initiated on heparin gtt, and accepted in transfer to cardiology service under the care of Dr Arredondo. This morning, the patient was more alert and was able to share that the L ear and jaw pain were in fact due to dental pain and swelling that she has had for 3-4 days in her left mandible where she has had a broken tooth for 1-2 weeks (the patient does not give a clear history on when this happened). She denies trauma to the tooth. This morning, she had a white count of 15.43 and given her physical exam/appearance, a CT of the facial bones was obtained, showing air in the soft tissues adjacent to the left mandible, concerning for infection, which she has clinically. While she has not had a fever since her presentation, she has a procalcitonin of 20.2 ng/mL and a CRP of 15.51 mg/dL, c/w a bacterial process. Blood cultures were collected and she was initiated on empiric unasyn. There is a great concern for bacteremia/endocarditis and, therefore, a pacemaker lead infection. Above concerns were discussed with [facility] cardiology (Dr Johnson), with plans for a DARRON and our recommendation for an OMFS consult for a possible too extraction/abscess I&D. The patient is hemodynamically stable for transfer and is agreeable to transfer. Total Critical Care Time spent on care for patient as well as communication with [facility] and completion of her discharge summary on day of discharge took 90 minutes. Please, look for [facility] for list of inpatient medications as the list below reflects outpatient prescriptions. Home Meds and New Rx's Prescriptions: No Action metformin [Glucophage] 1,000 MG tablet 500 mg PO BID@0800,1700 0RF omega-3 fatty acids-fish oil 1 EACH capsule 1 ea PO DAILY 0RF carvedilol 6.25 mg tablet 6.25 mg PO DAILY 0RF Label Comments: TAKE 1 TABLET BY MOUTH TWICE DAILY famotidine 20 mg tablet 20 mg PO DAILY AM 0RF Label Comments: TAKE 1 TABLET BY MOUTH EVERY OTHER DAY famotidine [Pepcid AC] 20 mg tablet 20 mg PO 0RF Label Comments: Take 1 tablet by mouth every other day losartan 25 mg tablet 12.5 mg PO DAILY 0RF Label Comments: TAKE 1 TABLET BY MOUTH TWICE DAILY furosemide 20 mg tablet 40 mg PO DAILY AM 0RF Label Comments: TAKE 2 TABLETS BY MOUTH ONCE DAILY gabapentin 300 mg capsule 300 mg PO BID 0RF Label Comments: TAKE 1 CAPSULE BY MOUTH TWICE DAILY Levemir FlexTouch U-100 Insuln 100 unit/mL (3 mL) insulin pen 35 unit SUBCUT HS 0RF anastrozole 1 mg tablet 1 mg PO DAILY AM 0RF Label Comments: TAKE 1 TABLET BY MOUTH ONCE DAILY anastrozole 1 mg tablet 0RF Label Comments: TAKE 1 TABLET BY MOUTH ONCE DAILY aspirin [Aspir-Low] 81 mg Tablet,Delayed Release (Dr/Ec) 81 mg PO DAILY AM 0RF Discharge Instructions Referrals: Maya Shi MD [Primary Care Provider] - Kamryn Hernandez MD [ [facility] STAFF PHYSICIAN] - Activity:: OOB to chair Diet:: NPO Discharge Orders Discharge Orders: Discharge Order (Routine); Ordered 10/07/21 Ordered By: Kiarra Kay DS: Summary Time Spent with Patient providing and/or coordinating discharge services: Greater than 30 minutes Status at Discharge Functional status at discharge: independent ambulation Overall status at discharge: patient is not back to baseline Mental Status: mental status grossly normal Speech and Movement: speech and movement normal Mood: congruent mood Affect: normal affect Exam Narrative Exam Narrative: General: Pleasant elderly female who is very alert, A&Ox3, NAD HEENT: EOMI, MMM, facial asymmetry with L mandibular swelling and TTP Heart: RRR, no m/r/g Lungs: faint crackles at B bases Abdomen: soft, nontender, nondistended Extremities: no edema BLE's Psych Mental Status: mental status grossly normal Speech and Movement: speech and movement normal Mood: congruent mood Affect: normal affect DS: Data Vitals/I&O Vitals and I&O: Vital Signs Temperature 36.3 C L 10/07/21 08:00 Temperature Source Temporal Artery Scan 10/07/21 08:00 Pulse 79 10/07/21 09:00 Pulse 81 10/07/21 09:01 Respiratory Rate 24 10/07/21 09:01 Respiratory Effort 10/07/21 08:00 Respiratory Depth Normal 10/07/21 08:00 Respiratory Pattern Normal 10/07/21 08:00 Blood Pressure 105/37 L 10/07/21 09:00 Blood Pressure Mean 51 10/07/21 09:00 Blood Pressure Position Left Lateral 10/07/21 08:00 Pulse Oximetry 91 L 10/07/21 08:01 Oxygen Delivery Method Room Air 10/07/21 08:00 Oxygen Flow Rate 0 10/07/21 08:00 Pain Level 0 10/07/21 08:00 Intake & Output 10/06/21 10/07/21 10/07/21 23:59 11:59 23:59 Intake Total 1104.792 / 1104.792 Output Total 1075 / 1075 Balance 29.792 / 29.792 Weight 36.8 kg 71.6 kg Intake: IV 1054.792 / 1054.792 Oral 50 / 50 Output: Urine 1075 / 1075 Other: Urine Color Yellow Urine Appearance Clear Urine Odor None Comment Urine sample sent to lab Voiding Methods Bedside Commode Data Completed and Pending Completed studies during hospitalization [Text1]: CXR: No acute pulmonary findings. CT facial bones: 1. Periapical lucencies in the right maxilla (series 3, image [id number]) may represent periapical abscess. 2. Air in the soft tissues adjacent to the left mandible. Series 3, image [id number] may indicate infection.. 3. Mucoperiosteal thickening in the maxillary sinuses and ethmoid sinuses may represent mild sinusitis.. Labs on day of discharge: Labs from last 24 hours 10/07/21 10/07/21 10/07/21 11:45 11:45 08:30 WBC RBC Hgb Hct MCV MCH MCHC RDW Plt Count MPV Immature Gran % Neutrophils % Lymphocytes % Monocytes % Eosinophils % Basophils % Nucleated RBC % Absolute Neutrophils Absolute Lymphocytes Absolute Monocytes Absolute Eosinophils Absolute Basophils PT INR APTT VBG Lactate Sodium 133 L Potassium 4.2 Chloride 102 Carbon Dioxide 21.9 Anion Gap 9.1 BUN 35 H Creatinine 1.9 H Estimated GFR/1.73 m2 25.91 Glucose 232 H D Calcium 9.4 Magnesium Total Bilirubin AST ALT Alkaline Phosphatase Troponin I 1088 H* C-Reactive Protein 15.51 H NT-Pro-B Natriuret Pep Total Protein Albumin Procalcitonin Urine Color Yellow Urine Clarity Clear Urine pH 5.5 Ur Specific Richards 1.020 Urine Protein 30 H Urine Ketones 15 H Urine Blood Trace-lysed H Urine Nitrite Negative Urine Bilirubin Negative Urine Urobilinogen 0.2 Ur Leukocyte Esterase Negative Urine RBC 3-5 H Urine WBC 0-2 Ur Epithelial Cells Moderate Urine Crystals Negative Urine Bacteria Moderate Urine Casts Negative Urine Mucus Trace Ur Culture Indicated? No/Sq. Contamination Urine Glucose >=1000 H COVID-19 Source SARS-CoV-2 (PCR) Add-On Test Request 10/07/21 10/07/21 10/07/21 08:05 08:05 08:05 WBC 15.43 H D RBC 3.58 L Hgb 10.5 L Hct 31.7 L MCV 88.5 MCH 29.3 MCHC 33.1 RDW 13.3 Plt Count 209 MPV 11.3 H Immature Gran % Neutrophils % Lymphocytes % Monocytes % Eosinophils % Basophils % Nucleated RBC % Absolute Neutrophils Absolute Lymphocytes Absolute Monocytes Absolute Eosinophils Absolute Basophils PT INR APTT VBG Lactate Sodium 133 L Potassium 4.3 Chloride 101 Carbon Dioxide 20.3 L Anion Gap 11.7 H BUN 36 H Creatinine 1.8 H Estimated GFR/1.73 m2 27.58 Glucose 337 H Calcium 9.3 Magnesium Total Bilirubin AST ALT Alkaline Phosphatase Troponin I 746 H* C-Reactive Protein NT-Pro-B Natriuret Pep Total Protein Albumin Procalcitonin Urine Color Urine Clarity Urine pH Ur Specific Richards Urine Protein Urine Ketones Urine Blood Urine Nitrite Urine Bilirubin Urine Urobilinogen Ur Leukocyte Esterase Urine RBC Urine WBC Ur Epithelial Cells Urine Crystals Urine Bacteria Urine Casts Urine Mucus Ur Culture Indicated? Urine Glucose COVID-19 Source SARS-CoV-2 (PCR) Add-On Test Request 10/07/21 10/07/21 10/07/21 08:05 05:00 01:35 WBC RBC Hgb Hct MCV MCH MCHC RDW Plt Count MPV Immature Gran % Neutrophils % Lymphocytes % Monocytes % Eosinophils % Basophils % Nucleated RBC % Absolute Neutrophils Absolute Lymphocytes Absolute Monocytes Absolute Eosinophils Absolute Basophils PT 10.6 INR 1.1 APTT 47.3 H D 19.0 L VBG Lactate Sodium Potassium Chloride Carbon Dioxide Anion Gap BUN Creatinine Estimated GFR/1.73 m2 Glucose Calcium Magnesium Total Bilirubin AST ALT Alkaline Phosphatase Troponin I C-Reactive Protein NT-Pro-B Natriuret Pep Total Protein Albumin Procalcitonin Urine Color Yellow Urine Clarity Sl Cloudy Urine pH 5.5 Ur Specific Richards 1.015 Urine Protein 30 H Urine Ketones 15 H Urine Blood Trace-lysed H Urine Nitrite Negative Urine Bilirubin Negative Urine Urobilinogen 0.2 Ur Leukocyte Esterase Trace H Urine RBC 3-5 H Urine WBC 10-20 H Ur Epithelial Cells Moderate Urine Crystals Negative Urine Bacteria Moderate Urine Casts Negative Urine Mucus Negative Ur Culture Indicated? No/Sq. Contamination Urine Glucose >=1000 H COVID-19 Source SARS-CoV-2 (PCR) Add-On Test Request 10/07/21 10/07/21 10/07/21 00:01 00:01 00:01 WBC RBC Hgb Hct MCV MCH MCHC RDW Plt Count MPV Immature Gran % Neutrophils % Lymphocytes % Monocytes % Eosinophils % Basophils % Nucleated RBC % Absolute Neutrophils Absolute Lymphocytes Absolute Monocytes Absolute Eosinophils Absolute Basophils PT INR APTT VBG Lactate Sodium Potassium Chloride Carbon Dioxide Anion Gap BUN Creatinine Estimated GFR/1.73 m2 Glucose Calcium Magnesium Total Bilirubin AST ALT Alkaline Phosphatase Troponin I C-Reactive Protein NT-Pro-B Natriuret Pep Total Protein Albumin Procalcitonin 20.2 Urine Color Urine Clarity Urine pH Ur Specific Richards Urine Protein Urine Ketones Urine Blood Urine Nitrite Urine Bilirubin Urine Urobilinogen Ur Leukocyte Esterase Urine RBC Urine WBC Ur Epithelial Cells Urine Crystals Urine Bacteria Urine Casts Urine Mucus Ur Culture Indicated? Urine Glucose COVID-19 Source Nasal/Nares SARS-CoV-2 (PCR) Negative Add-On Test Request DONE 10/07/21 10/07/21 10/06/21 00:01 00:01 22:23 WBC RBC Hgb Hct MCV MCH MCHC RDW Plt Count MPV Immature Gran % Neutrophils % Lymphocytes % Monocytes % Eosinophils % Basophils % Nucleated RBC % Absolute Neutrophils Absolute Lymphocytes Absolute Monocytes Absolute Eosinophils Absolute Basophils PT INR APTT VBG Lactate 1.6 H Sodium Potassium Chloride Carbon Dioxide Anion Gap BUN Creatinine Estimated GFR/1.73 m2 Glucose Calcium Magnesium Total Bilirubin AST ALT Alkaline Phosphatase Troponin I 282 H* C-Reactive Protein NT-Pro-B Natriuret Pep 57193 H Total Protein Albumin Procalcitonin Urine Color Urine Clarity Urine pH Ur Specific Richards Urine Protein Urine Ketones Urine Blood Urine Nitrite Urine Bilirubin Urine Urobilinogen Ur Leukocyte Esterase Urine RBC Urine WBC Ur Epithelial Cells Urine Crystals Urine Bacteria Urine Casts Urine Mucus Ur Culture Indicated? Urine Glucose COVID-19 Source SARS-CoV-2 (PCR) Add-On Test Request 10/06/21 10/06/21 20:37 20:37 WBC 10.76 RBC 4.04 Hgb 11.8 Hct 36.1 MCV 89.4 MCH 29.2 MCHC 32.7 RDW 13.1 Plt Count 247 MPV 11.4 H Immature Gran % 0.4 Neutrophils % 94.8 Lymphocytes % 2.5 Monocytes % 1.8 Eosinophils % 0.1 Basophils % 0.4 Nucleated RBC % 0 Absolute Neutrophils 10.21 H Absolute Lymphocytes 0.27 L Absolute Monocytes 0.19 Absolute Eosinophils 0.01 Absolute Basophils 0.04 PT INR APTT VBG Lactate Sodium 134 L Potassium 4.0 Chloride 100 Carbon Dioxide 23.8 Anion Gap 10.2 BUN 36 H Creatinine 2.1 H Estimated GFR/1.73 m2 23.09 Glucose 336 H Calcium 9.8 Magnesium 1.8 Total Bilirubin 0.5 AST 17 ALT 21 Alkaline Phosphatase 91 Troponin I 194 H* C-Reactive Protein NT-Pro-B Natriuret Pep Total Protein 8.1 Albumin 3.6 Procalcitonin Urine Color Urine Clarity Urine pH Ur Specific Richards Urine Protein Urine Ketones Urine Blood Urine Nitrite Urine Bilirubin Urine Urobilinogen Ur Leukocyte Esterase Urine RBC Urine WBC Ur Epithelial Cells Urine Crystals Urine Bacteria Urine Casts Urine Mucus Ur Culture Indicated? Urine Glucose COVID-19 Source SARS-CoV-2 (PCR) Add-On Test Request 10/07/21 11:50 Blood Blood Culture - Pending 10/07/21 11:45 Blood Blood Culture - Pending Preliminary micro results at discharge 10/07/21 11:50 Blood Culture - Pending Blood 10/07/21 11:45 Blood Culture - Pending Blood PFSH All Active Problems (Updated 10/07/21 @ 13:35 by Kiarra Kay MD) Toxic metabolic encephalopathy (Acute) Acute kidney injury superimposed on chronic kidney disease (Acute) Hyperglycemia (Acute) Dental abscess (Acute) Non-ST elevation CT (NSTEMI) (Acute) Elevated troponin I level (Acute) Acute kidney injury (Acute) Encounter for screening for other viral diseases (Acute) Medical History (Updated 10/07/21 @ 13:35 by Kiarra Kay MD) Breast cancer In remission; on anastrozole therapy CAD (coronary artery disease) CKD (chronic kidney disease) Diabetes Hypertension Myocardial infarction Syncope Surgical History (Updated 10/07/21 @ 13:33 by Kiarra Kay MD) S/P cardiac cath [facility] 2013 MICHELLE S/P placement of cardiac pacemaker required a 2nd procedure to fix electrode. Social History Smoking/Tobacco Use Status: Never Smoking risk assessment performed?: Yes Alcohol Intake: never Drug use: Never Do you feel safe at home: Yes Do you feel safe in your relationship?: Yes
--- NOTE | 2021-10-07 14:14 | CMDISCH_ITS ---
- If Service Date Differs Date of service: 10/07/21 Time of Service: 14:14 LACE Index Scoring Tool - Questions: Length of Stay (in days): 1 Acuity (Admit via E.D.?): Yes Comorbidities: Previous M.I., Diabetes w/o Complication, Liver or Renal Disease, Metastatic Solid Tumor E.D. 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 Patient/Family Education Needs: Review discharge instructions and plan to transfer to [facility]. - Disposition Disposition: [facility] Transport via of: EMS
[2021-10-07 16:06] LABS: Troponin I 1360 ng/L (<or=60)
== END 2021-10-07 18:35 | disposition short-term general hospital (02) | DRG 281 ==
LOC: ER 10-07 01:30 → ICU 10-07 01:58
PROVIDERS: Emergency Medicine; Internal Medicine; Admitting Provider Family Medicine; Emergency Provider Registered Nurse Emergency; PCP Family Medicine; Visit Provider Family Medicine
DX: I21.4 Non-ST elevation (NSTEMI) myocardial infarction (principal); N17.9 Acute kidney failure, unspecified; T82.7XXA Infection and inflammatory reaction due to other cardiac and vascular devices, implants and grafts, initial encounter; R78.81 Bacteremia; K04.7 Periapical abscess without sinus; E11.65 Type 2 diabetes mellitus with hyperglycemia; E11.22 Type 2 diabetes mellitus with diabetic chronic kidney disease; I12.9 Hypertensive chronic kidney disease with stage 1 through stage 4 chronic kidney disease, or unspecified chronic kidney disease; Y71.1 Therapeutic (nonsurgical) and rehabilitative cardiovascular devices associated with adverse incidents; I25.10 Atherosclerotic heart disease of native coronary artery without angina pectoris; I25.2 Old myocardial infarction; Z95.5 Presence of coronary angioplasty implant and graft; Z85.3 Personal history of malignant neoplasm of breast; S02.5XXA Fracture of tooth (traumatic), initial encounter for closed fracture; X58.XXXA Exposure to other specified factors, initial encounter; Z79.4 Long term (current) use of insulin
CPT/HCPCS: 36410; 36415; 36416; 80048; 80053; 82962; 84145; 85027; 87040; 87635; 93005; 96361; 96372; 99285; 70486; 71045; 81003; 81015; 83605; 83735; 83880; 84484; 85025; 85610; 85730; 86140; 93010; 99223; 99291; J0295; J2405; J3490

== ENCOUNTER 2021-10-25 18:22 | Outpatient (REF) | payer MEDICARE, SELFPAY ==
[2021-10-25 19:22] LABS: HCT 38.5 % (36.0-46.0); HGB 12.3 g/dL (11.2-15.7)
[2021-10-25 19:38] LABS: Hemoglobin A1C 10.8 % (<5.7)
[2021-10-25 19:41] LABS: Anion Gap 13.2 mmol/L (3-11); BUN 35 mg/dL (7-18); CO2 23.8 mmol/L (21.0-32.0); CREATININE 1.7 mg/dL (0.55-1.02); Calcium 10.3 mg/dL (8.5-10.1); Chloride 100 mmol/L (98-107); Estimated GFR 29.46 (mL/min/1.73m2); Glucose 251 mg/dL (74-106); Potassium 5.3 mmol/L (3.5-5.1); Sodium 137 mmol/L (136-145)
== END 2021-10-25 18:23 | disposition home or self-care (01) ==
LOC: NCHCN 18:22
PROVIDERS: PCP Family Medicine; Visit Provider Nurse Practitioner Family
DX: E11.9 Type 2 diabetes mellitus without complications (principal)
CPT/HCPCS: 80048; 83036; 85014; 85018

== ENCOUNTER 2021-11-26 04:19 | Outpatient (CLI) | payer MEDICARE, SELFPAY ==
[2021-11-26 12:23] LABS: Anion Gap 7.7 mmol/L (3-11); BUN 34 mg/dL (7-18); CO2 28.3 mmol/L (21.0-32.0); CREATININE 1.9 mg/dL (0.55-1.02); Calcium 9.8 mg/dL (8.5-10.1); Chloride 98 mmol/L (98-107); Estimated GFR 25.91 (mL/min/1.73m2); Glucose 286 mg/dL (74-106); Potassium 4.9 mmol/L (3.5-5.1); Sodium 134 mmol/L (136-145)
== END 2021-11-26 04:20 | disposition home or self-care (01) ==
LOC: LBO 04:19
PROVIDERS: PCP Family Medicine; Visit Provider Family Medicine
DX: E11.9 Type 2 diabetes mellitus without complications (principal); I25.5 Ischemic cardiomyopathy
CPT/HCPCS: 36415; 80048

== ENCOUNTER 2021-12-21 10:00 | Outpatient (RCR) | payer MEDICARE, SELFPAY | END 2021-12-22 23:59 | disposition home or self-care (01) | LOC: CR 10:00 | PROVIDERS: PCP Family Medicine; Visit Provider Internal Medicine Cardiovascular Disease | DX: Z51.89 Encounter for other specified aftercare (principal); I25.2 Old myocardial infarction; I42.9 Cardiomyopathy, unspecified; I25.10 Atherosclerotic heart disease of native coronary artery without angina pectoris | CPT/HCPCS: S9472 ==

== ENCOUNTER 2021-12-28 01:15 | Outpatient (REF) | payer MEDICARE, SELFPAY ==
[2021-12-28 15:32] LABS: HCT 37.4 % (36.0-46.0); HGB 12.2 g/dL (11.2-15.7)
[2021-12-28 15:38] LABS: Anion Gap 11.8 mmol/L (3-11); BUN 33 mg/dL (7-18); CO2 25.2 mmol/L (21.0-32.0); CREATININE 1.7 mg/dL (0.55-1.02); Calcium 9.5 mg/dL (8.5-10.1); Chloride 97 mmol/L (98-107); Estimated GFR 29.38 (mL/min/1.73m2); Glucose 377 mg/dL (74-106); Potassium 4.8 mmol/L (3.5-5.1); Sodium 134 mmol/L (136-145)
[2021-12-29 11:50] LABS: Fructosamine 563 mcmol/L (200 - 285)
== END 2021-12-28 01:16 | disposition home or self-care (01) ==
LOC: NCHCN 01:15
PROVIDERS: PCP Family Medicine; Visit Provider Family Medicine
DX: E11.9 Type 2 diabetes mellitus without complications (principal); I50.9 Heart failure, unspecified; I25.5 Ischemic cardiomyopathy; D64.9 Anemia, unspecified
CPT/HCPCS: 80048; 82985; 85014; 85018

== ENCOUNTER 2022-01-18 10:00 | Outpatient (RCR) | payer MEDICARE, SELFPAY | END 2022-01-22 23:59 | disposition home or self-care (01) | LOC: CR 10:00 | PROVIDERS: PCP Family Medicine; Visit Provider Internal Medicine Cardiovascular Disease | DX: Z51.89 Encounter for other specified aftercare (principal); I25.2 Old myocardial infarction; I42.9 Cardiomyopathy, unspecified; I25.10 Atherosclerotic heart disease of native coronary artery without angina pectoris | CPT/HCPCS: S9472 ==

== ENCOUNTER 2022-02-19 17:51 | Outpatient (REF) | payer MEDICARE, SELFPAY ==
[2022-02-19 21:57] LABS: Anion Gap 11.9 mmol/L (3-11); BUN 37 mg/dL (7-18); CO2 24.1 mmol/L (21.0-32.0); CREATININE 1.8 mg/dL (0.55-1.02); Calcium 9.8 mg/dL (8.5-10.1); Chloride 101 mmol/L (98-107); Glucose 148 mg/dL (74-106); Potassium 4.8 mmol/L (3.5-5.1); Sodium 137 mmol/L (136-145)
[2022-02-19 22:04] LABS: Hemoglobin A1C 12.4 % (<5.7)
== END 2022-02-19 17:52 | disposition home or self-care (01) ==
LOC: NCHCN 17:51
PROVIDERS: PCP Family Medicine; Visit Provider Family Medicine
DX: E11.65 Type 2 diabetes mellitus with hyperglycemia (principal); Z79.4 Long term (current) use of insulin
CPT/HCPCS: 80048; 83036

== ENCOUNTER 2022-02-20 10:00 | Outpatient (RCR) | payer MEDICARE, SELFPAY | END 2022-02-21 23:59 | disposition home or self-care (01) | LOC: CR 10:00 | PROVIDERS: PCP Family Medicine; Visit Provider Internal Medicine Cardiovascular Disease | DX: Z51.89 Encounter for other specified aftercare (principal); I25.2 Old myocardial infarction; I42.9 Cardiomyopathy, unspecified; I25.110 Atherosclerotic heart disease of native coronary artery with unstable angina pectoris | CPT/HCPCS: S9472 ==

== ENCOUNTER 2022-03-15 10:00 | Outpatient (RCR) | payer MEDICARE, SELFPAY | END 2022-03-24 23:59 | disposition home or self-care (01) | LOC: CR 10:00 | PROVIDERS: PCP Family Medicine; Visit Provider Internal Medicine Cardiovascular Disease | DX: Z51.89 Encounter for other specified aftercare (principal); I25.2 Old myocardial infarction | CPT/HCPCS: S9472 ==

== ENCOUNTER 2022-03-22 16:59 | Outpatient (REF) | payer MEDICARE, SELFPAY ==
[2022-03-22 17:30] LABS: HCT 39.8 % (36.0-46.0); HGB 13.5 g/dL (11.2-15.7)
[2022-03-22 18:06] LABS: ALT 18 U/L (14-59); AST 19 U/L (15-37); Albumin 4.2 g/dL (3.4-5.0); Alkaline Phosphatase 93 U/L (46-116); Anion Gap 12.1 mmol/L (3-11); BUN 39 mg/dL (7-18); Bilirubin, Total 0.4 mg/dL (0.2-1.0); CO2 22.9 mmol/L (21.0-32.0); Calcium 9.6 mg/dL (8.5-10.1); Chloride 100 mmol/L (98-107); Estimated GFR 24.36 (mL/min/1.73m2); Glucose 235 mg/dL (74-106); Potassium 4.2 mmol/L (3.5-5.1); Sodium 135 mmol/L (136-145); Total Protein 8.3 g/dL (6.4-8.2)
== END 2022-03-22 17:00 | disposition home or self-care (01) ==
LOC: NCHCN 16:59
PROVIDERS: PCP Family Medicine; Visit Provider Family Medicine
DX: I25.10 Atherosclerotic heart disease of native coronary artery without angina pectoris (principal); I25.5 Ischemic cardiomyopathy; E11.9 Type 2 diabetes mellitus without complications; D64.9 Anemia, unspecified; N28.9 Disorder of kidney and ureter, unspecified
CPT/HCPCS: 80053; 85014; 85018

== ENCOUNTER → 2022-05-29 01:32 | Outpatient (CLI) | payer MEDICARE, SELFPAY ==
--- NOTE | 2022-05-29 13:50 | DI.US_ITS ---
APPROVED REPORT EXAM: Comprehensive 2D, Doppler, and color-flow Echocardiogram Patient Location: Out-Patient Patient Safety Tech: Rosibel Mercer RDCS (AE) Indications: Ischemic cardiomyopathy, CAD of [place] artery Other Information Study Quality: Fair. Technically limited study due to body habitus. Conclusion Normal left ventricular wall thickness. Left ventricle is dilated. There is severe LV dysfunction w ith an ejection fraction of 25 to 30%. There is global hypokinesis Right ventricle is not well visualized Both atria are mildly dilated Device lead noted in the right atrium Aortic valve is trileaflet and sclerotic without stenosis or regurgitation Mildly thickened mitral leaflets. Mild mitral regurgitation Normal tricuspid valve with trace to mild regurgitation. Estimated right ventricular systolic pressu re is 39 mmHg Wall motion Left Ventricle Left ventricle is mild to moderately dilated. Left ventricular systolic function is severely decrease d. There is normal left ventricular wall thickness. There is sever global hypokinesis of the left dariela tricle. There is no ventricular septal defect visualized. LVEF is 25-30%. Right Ventricle Right ventricle is not well visualized. Right ventricular systolic function could not be assessed. Th e RVSP is 39.0 mmHg. Atria Left atrium is mildly dilated. Right atrium is mildly dilated. The interatrial septum is intact with no evidence for an atrial septal defect. Aortic Valve The Aortic valve is sclerotic. Aortic valve is trileaflet. There is no aortic valvular stenosis. No a ortic regurgitation is present. Mitral Valve Mildly thickened mitral leaflets No evidence of mitral valve stenosis. Mild mitral regurgitation. Tricuspid Valve The tricuspid valve is normal in structure. There is no tricuspid valve stenosis. Mild to moderate tr icuspid regurgitation. Pulmonic Valve The pulmonary valve is normal in structure. There is no pulmonic valvular stenosis. Trace pulmonic re gurgitation. Great Vessels The aortic root is normal in size. The ascending aorta is normal in size. Aortic arch is normal in ca liber. IVC is normal in size and collapses >50% with inspiration. Pericardium There is no pericardial effusion. 2D Dimensions IVSD d PLAX 0.97 cm F: 0.6-1.0 LV Vol A2C d MOD 141.0 mL LVPW d PLAX 0.92 cm F: 0.6 - 1.0 LV Vol A4C d MOD 151.4 mL LVID d PLAX 5.80 cm F: 3.8 - 5.2 LA vol/ BSA A2C s A-L 25.5 mL/m2 LVDs 5.20 cm F: 2.2 - 3.5 LA Area A2C s MOD 16.77 cm2 Ao Root d 2.75 cm F: 2.7 - 3.3 LV EF A4C MOD 25.7 % Ao Asc Diam d 3.00 cm F: 2.3 - 3.1 LV EF A2C MOD 30.9 % LV EF Teichholz 20.7 % LV EF Biplane MOD 27.4 % LVEF ([place]'s) 27.36 % F: 54 - 74 SV 40.11 mL LV Volume 112.62 mL F: 46 - 106 SV Index 21.52 mL/m2 LV Volume Index 60.54 mL/m2 F: 29 - 61 LV Vol Biplane MOD 146.6 mL FS 9.55 % M-Mode TAPSE 1.96 cm (M/F) >1.7 LV Diastology MV E' medial 0.033 (>0.07 m/s) E/A Ratio 0.5 LV E/e MED 15.50 (<14) MV E Vmax 0.51 (0.4-1.3 m/s) MV E' lateral 0.039 (>0.1 m/s) MV A Vmax 0.95 (0.4-1.3 m/s) LV E/e LAT 13.05 (<14) MV E/A Ratio 0.52 MV E/E' medial 15.51 MV E/E' lateral 13.08 Aortic Valve LVOT Area 3.05 cm2 AoV Area Vmax 3.05 cm2 LVOT Vmax 0.95 m/s AoV Area/ BSA (Vmax) 1.64 cm2/m2 LVOT Mean Jerad. 0.63 m/s HARSH Mean Jerad. 2.66 cm2 LVOT Peak Grad 3.6 mmHg HARSH Mean Jerad. Index 1.43 cm2/m2 LVOT Mean Grad 1.9 mmHg LVOT VTI 0.200 m LVOT Diam s 1.95 cm AoV Vmax 0.95 m/s Velocity Ratio 1.00 AoV Mean Jerad. 0.72 m/s AoV Peak Grad 3.6 mmHg LVOT SV 61.07 mL AoV Mean Grad 2.2 mmHg AoV VTI 0.204 m AoV Area VTI 2.99 cm2 AoV Area/ BSA (VTI) 1.61 cm/m2 Mitral Valve MV DT 261 (160-240 msec) MV PHT 76 msec MV Area PHT 2.91 cm2 MV VTI 0.296 m MV Area VTI 2.06 (4.0-6.0 cm2) Pulmonary Valve PV Vmax 0.94 (0.5-1.5 m/s) RVOT Peak Gr. 3.08 mmHg PV Peak Grad 3.5 mmHg RVOT Mean Gr. 1.55 mmHg PV Mean Grad 1.7 mmHg RVOT VTI 0.162 m PV VTI 0.187 m RVOT Vmax 0.88 m/s Tricuspid Valve TR Peak Grad 35.9 mmHg TR Vmax 3.00 m/s RA Pressure 3.00 mmHg RVSP (TR) 39.0 mmHg
== END ==
PROVIDERS: PCP Family Medicine; Visit Provider Internal Medicine Cardiovascular Disease
DX: I25.5 Ischemic cardiomyopathy (principal)
CPT/HCPCS: 93306

== ENCOUNTER 2022-05-29 02:48 | Outpatient (CLI) | payer MEDICARE, SELFPAY ==
[2022-05-29 13:28] LABS: Abs Immature Grans 0.03 10^3/uL (0.0-0.06); Absolute Basophil Count 0.06 10^3/uL (0.0-0.2); Absolute Eosinophil Count 0.14 10^3/uL (0.0-0.7); Absolute Lymphocyte Count 1.32 10^3/uL (1.2-3.4); Absolute Monocyte Count 0.64 10^3/uL (0.1-0.8); Absolute Neutrophil Count 5.19 10^3/uL (1.2-6.7); Basophils % 0.8; Eosinophils % 1.9; HCT 39.2 % (36.0-46.0); HGB 13.3 g/dL (11.2-15.7); Immature Grans % 0.4; Lymphocytes % 17.9; MCH 30.8 pg (27.0-33.0); MCHC 33.9 % (32.0-36.0); MCV 91 fL (80-95); MPV 11.8 fL (8.0-11.0); Monocytes % 8.7; Neutrophils % 70.3; Platelet Count 290 10^3/uL (130-400); RBC 4.32 10^6/uL (3.93-5.22); RDW 12.4 % (11.7-14.6); RDW-SD 41.1 fL; WBC 7.38 10^3/uL (4.4-10.8)
[2022-05-29 13:44] LABS: ALT 20 U/L (14-59); AST 15 U/L (15-37); Albumin 3.8 g/dL (3.4-5.0); Alkaline Phosphatase 101 U/L (46-116); Anion Gap 9.3 mmol/L (3-11); BUN 33 mg/dL (7-18); Bilirubin, Total 0.4 mg/dL (0.2-1.0); CO2 24.7 mmol/L (21.0-32.0); CREATININE 1.8 mg/dL (0.55-1.02); Calcium 9.4 mg/dL (8.5-10.1); Chloride 101 mmol/L (98-107); Glucose 229 mg/dL (74-106); Potassium 4.3 mmol/L (3.5-5.1); Sodium 135 mmol/L (136-145); Total Protein 8.1 g/dL (6.4-8.2)
== END 2022-05-29 02:49 | disposition home or self-care (01) ==
LOC: LBO 02:49
PROVIDERS: PCP Family Medicine; Visit Provider Internal Medicine
DX: C50.412 Malignant neoplasm of upper-outer quadrant of left female breast (principal); I25.10 Atherosclerotic heart disease of native coronary artery without angina pectoris; I25.5 Ischemic cardiomyopathy; E11.9 Type 2 diabetes mellitus without complications; Z17.0 Estrogen receptor positive status [ER+]
CPT/HCPCS: 36415; 80053; 93306; 85025

== ENCOUNTER 2022-07-02 16:50 | Outpatient (REF) | payer MEDICARE, SELFPAY ==
--- NOTE | 2022-07-02 15:00 | SKI_PTH ---
PATIENT: Kamryn Farmer LOC: [facility] U#:[id number] AGE/SX: 76/F ROOM: RE07/02/[address]: Maya Shi V : 1945 BED: DIS: 07/02/2022 SPEC #: [id number] RECD: 07/03/22 12:50 STATUS: LILIYA ESTRELLA #: [id number] ISABELLA: 07/02/22 15:[address]: Maya Shi V DEPT: Surgical Specimen RECD BY: Denita Pablo Tissues: 1 - SKIN BIOPSY(SHAVE/PUNCH) Procedures: SKIN LEVEL 4 Comments: [id number]
== END 2022-07-02 16:51 | disposition home or self-care (01) ==
LOC: NCHCN 16:50
PROVIDERS: PCP Family Medicine; Visit Provider Family Medicine
DX: L98.8 Other specified disorders of the skin and subcutaneous tissue (principal)
CPT/HCPCS: 88305

== ENCOUNTER 2022-08-13 18:04 | Outpatient (REF) | payer MEDICARE, SELFPAY ==
[2022-08-13 16:14] LABS: Hemoglobin A1C 9.3 % (<5.7)
[2022-08-13 16:50] LABS: ALT 20 U/L (14-59); AST 17 U/L (15-37); Albumin 4.4 g/dL (3.4-5.0); Alkaline Phosphatase 113 U/L (46-116); Anion Gap 9.9 mmol/L (3-11); BUN 31 mg/dL (7-18); Bilirubin, Total 0.4 mg/dL (0.2-1.0); CO2 26.1 mmol/L (21.0-32.0); CREATININE 1.9 mg/dL (0.55-1.02); Calcium 9.8 mg/dL (8.5-10.1); Calculated LDL 196 mg/dL (<100); Chloride 98 mmol/L (98-107); Cholesterol 287 mg/dL (<200); Estimated GFR 27.37 (mL/min/1.73m2); Glucose 222 mg/dL (74-106); HDL Cholesterol 33 mg/dL (40-60); Magnesium 2.4 mg/dL (1.8-2.4); Potassium 4.4 mmol/L (3.5-5.1); Sodium 134 mmol/L (136-145); Total Protein 8.4 g/dL (6.4-8.2); Triglyceride 293 mg/dL (<150)
[2022-08-13 17:09] LABS: Creatine Kinase 50 U/L (26-192)
== END 2022-08-13 18:05 | disposition home or self-care (01) ==
LOC: NCHCN 18:04
PROVIDERS: PCP Family Medicine; Visit Provider Family Medicine
DX: E78.5 Hyperlipidemia, unspecified (principal); E11.9 Type 2 diabetes mellitus without complications; I10 Essential (primary) hypertension; N28.9 Disorder of kidney and ureter, unspecified; R89.9 Unspecified abnormal finding in specimens from other organs, systems and tissues; Z00.00 Encounter for general adult medical examination without abnormal findings
CPT/HCPCS: 80053; 80061; 82550; 83036; 83735

== ENCOUNTER 2022-11-26 01:50 | Outpatient (CLI) | payer MEDICARE, SELFPAY ==
--- NOTE | 2022-11-26 10:45 | DI.MAMMO_ITS ---
Exam(s) MG MAMMO SCREENING 60 MIN DUR EXAM: MG MAMMO SCREENING 60 MIN DUR CLINICAL HISTORY: SCREENING, Z12.31, H/O LT BREAST CA, C50.412, Z17.0 TECHNIQUE: Mammograms were interpreted according to the usual protocol including computer analysis w [facility] CAD system, tomosynthesis and C-view imaging. COMPARISON: [address] [facility] FINDINGS: The breasts are composed of heterogeneously dense fibroglandular densities, Breast Density category C . No suspicious masses or suspicious microcalcifications are seen. Post lumpectomy scarring and surgic al clips are noted in the upper outer quadrant of the left breast. Benign calcifications are noted b ilaterally. No skin thickening or abnormal axillary lymph nodes are seen. There has been no significant change from prior exams. IMPRESSION: BI-RADS Cat 2 - Benign Findings Yearly screening mammography is recommended. Breast Density Category C, heterogeneously Dense. The mammogram demonstrates the patient's breast tissue is dense. Dense breast tissue is very common a nd is not abnormal but dense breast tissue can make it harder to find cancer on a mammogram. Also, de nse breast tissue may increase breast cancer risk. This information about the result of the mammogram report was provided to the patient to raise their awareness. Use this report when you speak with the patient about their risks for breast cancer, which includes their family history. At that time, you may recommend additional screening tests (Ultrasound or MRI) as they might be useful based on their r isk. A negative radiographic report should not delay biopsy if a dominant or clinically suspicious mass is present. Up to ten percent of cancers are not identified on mammography. A negative report may reinforce clinical impression. Adenosis and dense breasts may obscure an underlying neoplasm. False positive reports average 6 to 10%.
== END 2022-11-26 02:10 ==
LOC: DI 01:51
PROVIDERS: PCP Family Medicine; Visit Provider Nurse Practitioner Adult Health
DX: Z12.31 Encounter for screening mammogram for malignant neoplasm of breast (principal); Z85.3 Personal history of malignant neoplasm of breast; Z98.890 Other specified postprocedural states; Z79.811 Long term (current) use of aromatase inhibitors
CPT/HCPCS: 77063; 77067

== ENCOUNTER 2022-11-26 03:14 | Outpatient (CLI) | payer MEDICARE, SELFPAY ==
[2022-11-26 12:15] LABS: Abs Immature Grans 0.02 10^3/uL (0.0-0.06); Absolute Basophil Count 0.08 10^3/uL (0.0-0.2); Absolute Eosinophil Count 0.23 10^3/uL (0.0-0.7); Absolute Lymphocyte Count 1.42 10^3/uL (1.2-3.4); Absolute Neutrophil Count 5.59 10^3/uL (1.2-6.7); Eosinophils % 2.9; HCT 38.5 % (36.0-46.0); HGB 12.9 g/dL (11.2-15.7); Immature Grans % 0.3; Lymphocytes % 17.9; MCH 29.9 pg (27.0-33.0); MCHC 33.5 % (32.0-36.0); MCV 89 fL (80-95); MPV 11.3 fL (8.0-11.0); Monocytes % 7.6; Neutrophils % 70.3; Platelet Count 358 10^3/uL (130-400); RBC 4.32 10^6/uL (3.93-5.22); RDW 12.7 % (11.7-14.6); RDW-SD 41.7 fL; WBC 7.94 10^3/uL (4.4-10.8)
[2022-11-26 13:19] LABS: ALT 20 U/L (14-59); AST 11 U/L (15-37); Albumin 3.8 g/dL (3.4-5.0); Alkaline Phosphatase 113 U/L (46-116); Anion Gap 12.4 mmol/L (3-11); BUN 38 mg/dL (7-18); Bilirubin, Total 0.3 mg/dL (0.2-1.0); CO2 23.6 mmol/L (21.0-32.0); CREATININE 2.6 mg/dL (0.55-1.02); Calcium 9.6 mg/dL (8.5-10.1); Calculated LDL 153 mg/dL (<100); Chloride 103 mmol/L (98-107); Cholesterol 227 mg/dL (<200); Estimated GFR 18.78 (mL/min/1.73m2); Glucose 191 mg/dL (74-106); HDL Cholesterol 32 mg/dL (40-60); Sodium 139 mmol/L (136-145); Total Protein 8.4 g/dL (6.4-8.2); Triglyceride 210 mg/dL (<150)
[2022-11-26 13:41] LABS: NT-proBNP 3506 pg/mL (<300)
== END 2022-11-26 03:15 | disposition home or self-care (01) ==
LOC: LBO 03:14
PROVIDERS: PCP Family Medicine; Visit Provider Family Medicine
DX: E78.5 Hyperlipidemia, unspecified (principal); C50.412 Malignant neoplasm of upper-outer quadrant of left female breast; Z17.0 Estrogen receptor positive status [ER+]; Z79.811 Long term (current) use of aromatase inhibitors; I25.5 Ischemic cardiomyopathy; I50.9 Heart failure, unspecified
CPT/HCPCS: 36415; 80053; 80061; 83880; 85025

== ENCOUNTER 2022-12-12 14:37 | Outpatient (REF) | payer MEDICARE, SELFPAY ==
[2022-12-12 16:24] LABS: Anion Gap 10.4 mmol/L (3-11); BUN 41 mg/dL (7-18); CO2 23.6 mmol/L (21.0-32.0); CREATININE 2.5 mg/dL (0.55-1.02); Calcium 10.1 mg/dL (8.5-10.1); Chloride 101 mmol/L (98-107); Estimated GFR 19.69 (mL/min/1.73m2); Glucose 287 mg/dL (74-106); PHOSPHORUS 3.8 mg/dL (2.6-4.7); Sodium 135 mmol/L (136-145)
== END 2022-12-12 14:38 | disposition home or self-care (01) ==
LOC: NCHCN 14:37
PROVIDERS: PCP Family Medicine; Visit Provider Family Medicine
DX: I10 Essential (primary) hypertension (principal); N28.9 Disorder of kidney and ureter, unspecified
CPT/HCPCS: 80048; 84100

== ENCOUNTER 2022-12-13 16:16 | Outpatient (REF) | payer MEDICARE, SELFPAY | END 2022-12-13 16:17 | disposition home or self-care (01) | LOC: LBN 16:16 | PROVIDERS: PCP Family Medicine; Visit Provider Physician Assistant | DX: N39.0 Urinary tract infection, site not specified (principal); R31.0 Gross hematuria | CPT/HCPCS: 87086 ==

== ENCOUNTER 2022-12-26 13:24 | Outpatient (REF) | payer MEDICARE, SELFPAY ==
[2022-12-26 19:54] LABS: Anion Gap 11.2 mmol/L (3-11); BUN 43 mg/dL (7-18); CO2 22.8 mmol/L (21.0-32.0); CREATININE 2.5 mg/dL (0.55-1.02); Chloride 101 mmol/L (98-107); Estimated GFR 19.56 (mL/min/1.73m2); Glucose 329 mg/dL (74-106); Potassium 4.7 mmol/L (3.5-5.1); Sodium 135 mmol/L (136-145)
== END 2022-12-26 13:25 | disposition home or self-care (01) ==
LOC: NCHCN 13:24
PROVIDERS: PCP Family Medicine; Visit Provider Family Medicine
DX: N39.0 Urinary tract infection, site not specified (principal); N28.9 Disorder of kidney and ureter, unspecified; I10 Essential (primary) hypertension
CPT/HCPCS: 80048; 87086

== ENCOUNTER 2023-01-03 00:39 | Outpatient (CLI) | payer MEDICARE, SELFPAY ==
--- NOTE | 2023-01-03 15:21 | DI.US_ITS ---
Exam(s) US RENAL EXAM: US RENAL CLINICAL HISTORY: RENAL INSUFFICIENCY N28.9 HX HEMATURIA Z87.448. TECHNIQUE: Bhatti scale, color and spectral Doppler were used. COMPARISON: No exams were available for comparison FINDINGS: Renal size in cm: Right: 9.4 left: 10.5 Echogenicity: Normal Hydronephrosis: Moderate left hydronephrosis. Dilated left ureter visualized at 11 millimeters. No obstructing stone identified. Cyst or mass: No Nephrolithiasis: No Bladder:Normal Prevoid vol:76 Postvoid vol:0 IMPRESSION: Moderate left hydronephrosis and proximal ureteral dilatation. No obstructing stone visible. DATA REPOSITORY:
== END 2023-01-03 00:59 ==
LOC: DI 00:39
PROVIDERS: PCP Family Medicine; Visit Provider Family Medicine
DX: N13.2 Hydronephrosis with renal and ureteral calculous obstruction (principal)
CPT/HCPCS: 76770

== ENCOUNTER 2023-03-07 15:15 | Outpatient (REF) | payer MEDICARE, SELFPAY ==
[2023-03-07 15:56] LABS: BUN 41 mg/dL (7-18); CREATININE 2.3 mg/dL (0.55-1.02); Calcium 9.5 mg/dL (8.5-10.1); Chloride 100 mmol/L (98-107); Estimated GFR 21.62 (mL/min/1.73m2); Glucose 335 mg/dL (74-106); Potassium 4.8 mmol/L (3.5-5.1); Sodium 134 mmol/L (136-145)
== END 2023-03-07 15:16 | disposition home or self-care (01) ==
LOC: NCHCN 15:15
PROVIDERS: PCP Family Medicine; Visit Provider Family Medicine
DX: N13.30 Unspecified hydronephrosis (principal); N28.9 Disorder of kidney and ureter, unspecified
CPT/HCPCS: 80048

== ENCOUNTER → 2023-04-22 01:21 | Outpatient (CLI) | payer MEDICARE, SELFPAY ==
--- NOTE | 2023-04-22 10:07 | DI.CT_ITS ---
Exam(s) CT ABDOMEN PELVIS WO EXAM: CT ABDOMEN PELVIS WO CLINICAL HISTORY: LEFT HYDRONEPHROSIS N13.30. TECHNIQUE: Imaging Protocol: Axial computed tomography images with coronal and sagittal reformatted images were created and reviewed. COMPARISON: CT CT RAD ONC CHEST INTER from 09/12/[address] CHEST WO from 09/28/2020 US US RENAL from 01/03/2023 FINDINGS: ABDOMEN: Lung Bases: Cardiomegaly. Small pericardial effusion. Liver: Normal density. There is a 1.7 cm hypodense mass in the left lobe of the liver. It appears at least partially visualized on the CT scan from 09/12/2020. Gallbladder and biliary tract: No radiodense calculus or biliary ductal dilation. Pancreas: Normal density, no abnormal calcifications or inflammatory process. Spleen: Normal. Kidneys: Normal size, contour and axis.There is bilateral nephrolithiasis. There is a 5 mm stone in the midpole of the left kidney. There is a 4 mm stone in the midpole of the right kidney. There is no ureterolithiasis or hydronephrosis present. No masses seen. Adrenal glands: No mass is seen. Lymph nodes: Within normal limits. Abdominal Aorta: Abdominal portion non-dilated. Atherosclerosis. PELVIS: Bladder:There is mild thickening of the wall of the urinary bladder. This may be due to underdistent ion. Bowel: There is a large amount of stool seen in the colon suggesting constipation. There is no evide nce of bowel obstruction or bowel wall thickening. There is no evidence of appendicitis. Peritoneal cavity: No ascites, collection or mesenteric inflammatory response. No free air. Reproductive organs: Unremarkable as visualized. Bones: Within normal limits. Soft Tissues: Within normal limits. IMPRESSION: 1. Bilateral nephrolithiasis. 2. No evidence of ureterolithiasis or hydronephrosis. 3. 1.7 cm hypodense lesion in the left lobe of the liver. It appears at least partially visualized on the examination from 2020. Further evaluation with ultrasound or MRI is recommended. 4. Mild thickening of the wall of the urinary bladder. This may be due to underdistention, however, i nfectious/inflammatory process or neoplasm cannot be excluded. Unexpected findings RADIATION DOSE DELIVERED: 768.79mGy.cm Total DLP DATA REPOSITORY: All CT scans at this facility are submitted to the National Radiology Data Registry (NRDR) Dose Index Registry (DIR) with the [employer] (ACR). RADIATION OPTIMIZATION: All CT scans at this facility use at least one of these dose optimization te chniques: automated exposure control; mA and/or kV adjustment per patient size (includes targeted exa ms where dose is matched to clinical indication); or iterative reconstruction.
== END ==
PROVIDERS: PCP Family Medicine; Visit Provider Family Medicine
DX: N20.0 Calculus of kidney (principal); K76.89 Other specified diseases of liver
CPT/HCPCS: 74176

== ENCOUNTER 2023-04-29 02:30 | Outpatient (CLI) | payer MEDICARE, SELFPAY ==
[2023-04-29 12:16] LABS: Abs Immature Grans 0.01 10^3/uL (0.0-0.06); Absolute Basophil Count 0.06 10^3/uL (0.0-0.2); Absolute Eosinophil Count 0.17 10^3/uL (0.0-0.7); Absolute Lymphocyte Count 1.08 10^3/uL (1.2-3.4); Absolute Monocyte Count 0.52 10^3/uL (0.1-0.8); Absolute Neutrophil Count 4.23 10^3/uL (1.2-6.7); Eosinophils % 2.8; HCT 37.4 % (36.0-46.0); HGB 12.8 g/dL (11.2-15.7); Immature Grans % 0.2; Lymphocytes % 17.8; MCHC 34.2 % (32.0-36.0); MCV 88 fL (80-95); MPV 12.1 fL (8.0-11.0); Monocytes % 8.6; Neutrophils % 69.6; Platelet Count 299 10^3/uL (130-400); RBC 4.27 10^6/uL (3.93-5.22); RDW 12.8 % (11.7-14.6); RDW-SD 40.5 fL; WBC 6.07 10^3/uL (4.4-10.8)
[2023-04-29 12:53] LABS: Bilirubin Negative (Negative); Blood Negative (Negative); Clarity Clear (Clear); Glucose >=1000 mg/dL (Negative); Ketones Trace mg/dL (Negative); Leukocyte Esterase Trace (Negative); Nitrite Negative (Negative); pH 5.5 (5-8)
[2023-04-29 13:02] LABS: Bacteria Few HPF (Negative); C & S Indicated? No/Sq. Contamination; Casts 0-2 Hyaline LPF (Negative); Crystals Negative HPF (Negative); Epithelial Cells Moderate HPF (Negative); RBC Negative HPF (0-2)
[2023-04-29 13:03] LABS: Mucus Negative (Negative)
[2023-04-29 13:08] LABS: COMMENT (LAB VIEW ONLY) 195.85 mg/dL
[2023-04-29 13:23] LABS: Albumin 3.8 g/dL (3.4-5.0); Anion Gap 7.5 mmol/L (3-11); BUN 42 mg/dL (7-18); CO2 26.5 mmol/L (21.0-32.0); Calcium 9.4 mg/dL (8.5-10.1); Chloride 98 mmol/L (98-107); Estimated GFR 25.57 (mL/min/1.73m2); Glucose 389 mg/dL (74-106); Potassium 4.5 mmol/L (3.5-5.1); Sodium 132 mmol/L (136-145)
[2023-04-29 19:54] LABS: COMMENT (LAB VIEW ONLY) 191.99 mg/dL; Microalb ug/mg Crea 22.2 ug/mg Cr
[2023-04-29 22:35] LABS: Parathyroid Hormone,Intact 123 pg/mL (19-88)
[2023-04-30 09:07] LABS: Kappa Free Light Chain 7.24 mg/dL (0.33-1.94); Lambda Free Light Chain 4.76 mg/dL (0.57-2.63)
[2023-04-30 09:11] LABS: Hepatitis B Surface Ag Negative (Negative)
[2023-04-30 09:49] LABS: HIV-1/2 Ag & Ab Screen Negative (Negative)
[2023-04-30 10:05] LABS: Hepatitis C Ab w Rflx HCV PCR Negative (Negative)
[2023-04-30 14:15] LABS: Albumin 58.6 % (55.8-66.1); Albumin g/dL 4.4 g/dL (3.6-5.2); Total Protein 7.5 g/dL (6.3-8.2)
== END 2023-04-29 02:31 | disposition home or self-care (01) ==
PROVIDERS: PCP Family Medicine; Visit Provider Internal Medicine Nephrology
DX: N18.4 Chronic kidney disease, stage 4 (severe) (principal); Z11.59 Encounter for screening for other viral diseases; Z01.84 Encounter for antibody response examination; Z11.4 Encounter for screening for human immunodeficiency virus [HIV]; I10 Essential (primary) hypertension; E11.9 Type 2 diabetes mellitus without complications; R82.998 Other abnormal findings in urine; R79.89 Other specified abnormal findings of blood chemistry
CPT/HCPCS: 36415; 80048; 82043; 82570; 86803; 87340; 87389; 81003; 81015; 82040; 82565; 83883; 83970; 84156; 84165; 85025

== ENCOUNTER → 2023-05-09 00:42 | Outpatient (CLI) | payer MEDICARE, SELFPAY ==
--- NOTE | 2023-05-09 | DI.US_ITS ---
Exam(s) US ABDOMEN LIMITED EXAM: US ABDOMEN LIMITED CLINICAL HISTORY: LIVER LESION K76.9 TECHNIQUE: Ultrasound abdomen performed using standard protocol. COMPARISON: CT CT ABDOMEN PELVIS WO from 04/22/2023 FINDINGS: PANCREAS: Normal where visualized. LIVER: No hepatic mass is seen sonographically. Hepatopedal flow in the Portal Vein. The liver measu res in 16.4 cm length. GALLBLADDER: No evidence of cholelithiasis. No evidence of wall thickening. No pericholecystic fluid identified. BILIARY SYSTEM: Common bile duct measures < 7 mm. No intrahepatic biliary ductal dilation. KAT'S SIGN: Negative. RIGHT KIDNEY: Kidney is normal in size. No evidence of renal calculi. No evidence of hydronephrosis. No renal mass or cyst identified. ASCITES: None seen. IMPRESSION: The hepatic lesion is not seen sonographically. However due to its presence on the CT scan, an MRI w ithout and with contrast of the liver is recommended for further evaluation. DATA REPOSITORY:
== END ==
PROVIDERS: PCP Family Medicine; Visit Provider Family Medicine
DX: K76.9 Liver disease, unspecified (principal)
CPT/HCPCS: 76705

== ENCOUNTER → 2023-05-13 10:30 | Outpatient (BNVA) | payer MEDICARE, SELFPAY | PROVIDERS: PCP Family Medicine; Referring Provider Family Medicine; Visit Provider Nurse Practitioner Gerontology | DX: R31.29 Other microscopic hematuria (principal); N20.0 Calculus of kidney | CPT/HCPCS: 81003; 99214 ==

== ENCOUNTER 2023-05-28 03:24 | Outpatient (CLI) | payer MEDICARE, SELFPAY ==
[2023-05-28 11:53] LABS: Anion Gap 7.7 mmol/L (3-11); BUN 38 mg/dL (7-18); CO2 25.3 mmol/L (21.0-32.0); Calcium 9.7 mg/dL (8.5-10.1); Chloride 101 mmol/L (98-107); Estimated GFR 25.57 (mL/min/1.73m2); Glucose 310 mg/dL (74-106); Magnesium 2.4 mg/dL (1.8-2.4); Potassium 4.5 mmol/L (3.5-5.1); Sodium 134 mmol/L (136-145)
== END 2023-05-28 03:25 | disposition home or self-care (01) ==
LOC: LBO 03:24
PROVIDERS: PCP Family Medicine; Visit Provider Family Medicine
DX: N13.30 Unspecified hydronephrosis (principal)
CPT/HCPCS: 36415; 80048; 83735

== ENCOUNTER 2023-06-17 22:07 | Outpatient (CLI) | payer MEDICARE, SELFPAY ==
[2023-06-17 12:32] LABS: Abs Immature Grans 0.02 10^3/uL (0.0-0.06); Absolute Basophil Count 0.08 10^3/uL (0.0-0.2); Absolute Eosinophil Count 0.21 10^3/uL (0.0-0.7); Absolute Lymphocyte Count 1.29 10^3/uL (1.2-3.4); Absolute Neutrophil Count 5.05 10^3/uL (1.2-6.7); Basophils % 1.1; Eosinophils % 2.9; HCT 38.1 % (36.0-46.0); HGB 12.6 g/dL (11.2-15.7); Immature Grans % 0.3; Lymphocytes % 17.8; MCH 30.2 pg (27.0-33.0); MCHC 33.1 % (32.0-36.0); MCV 91 fL (80-95); MPV 11.3 fL (8.0-11.0); Monocytes % 8.3; Neutrophils % 69.6; Platelet Count 307 10^3/uL (130-400); RBC 4.17 10^6/uL (3.93-5.22); RDW 12.8 % (11.7-14.6); RDW-SD 42.3 fL; WBC 7.25 10^3/uL (4.4-10.8)
[2023-06-17 12:59] LABS: ALT 16 U/L (14-59); AST 11 U/L (15-37); Albumin 3.7 g/dL (3.4-5.0); Alkaline Phosphatase 102 U/L (46-116); Anion Gap 10.8 mmol/L (3-11); BUN 39 mg/dL (7-18); Bilirubin, Total 0.3 mg/dL (0.2-1.0); CO2 23.2 mmol/L (21.0-32.0); Calcium 9.6 mg/dL (8.5-10.1); Chloride 103 mmol/L (98-107); Estimated GFR 25.57 (mL/min/1.73m2); Glucose 242 mg/dL (74-106); Potassium 4.6 mmol/L (3.5-5.1); Sodium 137 mmol/L (136-145); Total Protein 7.9 g/dL (6.4-8.2)
== END 2023-06-17 22:08 | disposition home or self-care (01) ==
LOC: LBO 22:08
PROVIDERS: PCP Family Medicine; Visit Provider Internal Medicine
DX: C50.412 Malignant neoplasm of upper-outer quadrant of left female breast (principal)
CPT/HCPCS: 36415; 80053; 85025

== ENCOUNTER 2023-09-08 05:20 | Outpatient (CLI) | payer MEDICARE, SELFPAY ==
[2023-09-08 13:00] LABS: ALT 17 U/L (14-59); AST 12 U/L (15-37); Albumin 3.7 g/dL (3.4-5.0); Alkaline Phosphatase 76 U/L (46-116); BUN 40 mg/dL (7-18); Bilirubin, Total 0.4 mg/dL (0.2-1.0); CREATININE 1.9 mg/dL (0.55-1.02); Calcium 9.3 mg/dL (8.5-10.1); Calculated LDL 118 mg/dL (<100); Chloride 103 mmol/L (98-107); Cholesterol 191 mg/dL (<200); Glucose 105 mg/dL (74-106); HDL Cholesterol 38 mg/dL (40-60); Potassium 4.3 mmol/L (3.5-5.1); Sodium 138 mmol/L (136-145); Total Protein 7.9 g/dL (6.4-8.2); Triglyceride 177 mg/dL (<150)
[2023-09-08 13:13] LABS: Creatine Kinase 46 U/L (26-192)
== END 2023-09-08 05:21 | disposition home or self-care (01) ==
LOC: LBO 05:20
PROVIDERS: PCP Family Medicine; Visit Provider Family Medicine
DX: E78.5 Hyperlipidemia, unspecified (principal); I25.10 Atherosclerotic heart disease of native coronary artery without angina pectoris
CPT/HCPCS: 36415; 80053; 80061; 82550

== ENCOUNTER → 2023-09-18 02:15 | Outpatient (CLI) | payer MEDICARE, SELFPAY ==
--- NOTE | 2023-09-18 14:30 | DI.US_ITS ---
APPROVED REPORT EXAM: Comprehensive 2D, Doppler, and color-flow Echocardiogram Patient Location: Out-Patient Purse Framer: Semaj Johnson RDCS (AE) Indications: ischemic SOLDERING TECHNICIAN Conclusion 1. LA/LV moderately dilated, RA/RV mildly dilated. 2. Dyskinesis of the interventricular septum superimposed on severe global hypokinesis, EF 20-25%. No rmal RV function. Device leads in right heart. 3. Mild aortic sclerosis, moderate MR, mild TR. 4. Trace pericardial effusion. Wall motion Left Ventricle Left ventricle is moderately dilated. Left ventricular systolic function is moderate to severely decr eased. There is normal left ventricular wall thickness. There is global hypokinesis of the left ventr icle. There is no ventricular septal defect visualized. LVEF is 20-25%. Right Ventricle The right ventricle is normal size. Right ventricular systolic function is grossly normal. Device favian d is present in the right ventricle. Atria Left atrium is mildly dilated. Right atrium is mildly dilated. The interatrial septum is intact with no evidence for an atrial septal defect. Aortic Valve The Aortic valve is mildly Aortic valve is trileaflet.sclerotic. There is no aortic valvular stenosis . No aortic regurgitation is present. Mitral Valve The mitral valve is normal in structure. No evidence of mitral valve stenosis. Moderate mitral regurg itation. Tricuspid Valve The tricuspid valve is normal in structure. There is no tricuspid valve stenosis. Moderate tricuspid regurgitation. Unable to assess PA pressure. Pulmonic Valve The pulmonary valve is normal in structure. There is no pulmonic valvular stenosis. Mild pulmonic reg urgitation. Great Vessels The aortic root is normal in size. The ascending aorta is normal in size. Aortic arch is not well vis ualized. IVC is normal in size and collapses >50% with inspiration. Pericardium Trace pericardial effusion. 2D Dimensions IVSD d PLAX 0.73 cm F: 0.6-1.0 Ao Root d 2.79 cm F: 2.7 - 3.3 LVPW d PLAX 0.72 cm F: 0.6 - 1.0 Ao Asc Diam d 2.78 cm F: 2.3 - 3.1 LVID d PLAX 6.06 cm F: 3.8 - 5.2 LVDs 5.50 cm F: 2.2 - 3.5 LV EF Teichholz 20.1 % FS 9.33 % LV EDV (Teich) 184.2 mL LV ESV (Teich) 147.1 mL Stroke Vol Index (Teich) 19.71 M-Mode TAPSE 1.95 cm (M/F) >1.7 Auto EF LV EDV A4C 145.2 mL LV EDV A2C 184.3 mL LV EDV BP 162.0 mL LV ESV A4C 109.5 mL LV ESV A2C 138.9 mL LV ESV BP 121.8 mL LVEF(%) A4C 24.6 % LVEF(%) A2C 24.6 % LVEF(%) BP 24.8 % LV SV A4C 35.7 ml LV SV A2C 45.4 ml LV SV BP 40.2 ml LV CO A4C 2.7 L/min LV CO A2C 3.5 L/min LV CO BP 3.1 L/min HR A4C 77.09 BPM HR A2C 77.42 BPM LV EDV Index (BP) LA Volume LA Length A4C 5.0 cm LA Length A2C 5.1 cm LA Area A4C s 15.60 cm2 LA Area A2C s 25.39 cm2 LA Vol A4C A-L 41.46 mL LA Vol A2C A-L 106.63 mL LA Vol Biplane A-L 67.5 mL LA Vol/BSA A4C A-L LA Vol/BSA A2C A-L LA Vol/BSA BP A-L 35.9 mL/m2 LA Vol A4C MOD 39.1 mL LA Vol A2C MOD 102.0 mL LA Vol BP MOD 64.0 mL RA Volume RA Area A4C 14.4 cm2 RA ESV A4C (A-L) 40.4mL RA Vol/BSA A4C A-L RA Length A4C 4.4 cm RA ESV A4C (MOD) 38.2mL LV Diastology MV E' medial 0.031 (>0.07 m/s) MV E Vmax 0.96 (0.4-1.3 m/s) MV E/E' MED 31.37 (<14) MV A Vmax 0.55 (0.4-1.3 m/s) MV E' lateral 0.037 (>0.1 m/s) E/A Ratio 1.7 MV E/E' LAT 25.54 (<14) MV E' Average 0.034 m/s MV E/E'(average) 28.16 Aortic Valve AoV Vmax 0.84 m/s LVOT Vmax 0.57 m/s AoV Peak Grad 2.8 mmHg LVOT Peak Grad 1.3 mmHg AoV Area (Vmax) 1.29 cm2 LVOT VTI 0.124 m AoV VTI 0.191 m LVOT Mean Grad 0.7 mmHg AoV Mean Jerad. 0.64 m/s LVOT SV 23.67 mL AoV Mean Grad 1.8 mmHg LVOT Diam s 1.55 cm AoV Area (VTI) 1.24 cm2 Velocity Ratio 0.68 Mitral Valve MV DT 106 (160-240 msec) MR Vmax 4.51 m/s MV Vmax TIPS 1.19 m/s MR VTI 1.485 m MV Mean Grad 1.8 (<2mmHg) MR Peak Grad 81.3 mmHg MV VTI 0.251 m MR Mean Grad 56.1 mmHg MR PISA Radius 0.47 cm MR Aliasing Velocity 0.30 m/s Pulmonary Valve PV Vmax 0.79 (0.5-1.5 m/s) RVOT Vmax 0.38 m/s PV Peak Grad 2.5 mmHg RVOT Peak Gr. 0.6 mmHg PV Mean Jerad 0.47 m/s RVOT VTI 0.060 m PV Mean Grad 1.1 mmHg RVOT Mean Gr. 0.2 mmHg Tricuspid Valve RA Pressure 3.00 mmHg
== END ==
PROVIDERS: PCP Family Medicine; Visit Provider Physician Assistant Medical
DX: I25.5 Ischemic cardiomyopathy (principal)
CPT/HCPCS: 93306

== ENCOUNTER → 2023-09-22 12:44 | Outpatient (BNVA) | payer MEDICARE, SELFPAY | PROVIDERS: PCP Family Medicine; Referring Provider Podiatrist; Visit Provider Physical Therapy Assistant | DX: I73.9 Peripheral vascular disease, unspecified (principal) | CPT/HCPCS: 93922 ==

== ENCOUNTER → 2023-09-24 09:29 | Outpatient (BNVA) | payer MEDICARE, SELFPAY | PROVIDERS: PCP Family Medicine; Referring Provider Family Medicine; Visit Provider Podiatrist | DX: G60.3 Idiopathic progressive neuropathy (principal); N17.9 Acute kidney failure, unspecified; N18.9 Chronic kidney disease, unspecified; E11.42 Type 2 diabetes mellitus with diabetic polyneuropathy; I73.9 Peripheral vascular disease, unspecified; R09.89 Other specified symptoms and signs involving the circulatory and respiratory systems; R20.8 Other disturbances of skin sensation; R23.1 Pallor; M79.674 Pain in right toe(s); M79.675 Pain in left toe(s); R60.0 Localized edema; L65.9 Nonscarring hair loss, unspecified | CPT/HCPCS: 11721 ==

== ENCOUNTER → 2023-10-20 10:27 | Outpatient (BNVA) | payer MEDICARE, SELFPAY | PROVIDERS: PCP Family Medicine; Referring Provider Family Medicine; Visit Provider Podiatrist | DX: G60.3 Idiopathic progressive neuropathy (principal); N17.9 Acute kidney failure, unspecified; N18.9 Chronic kidney disease, unspecified; E11.42 Type 2 diabetes mellitus with diabetic polyneuropathy; I73.9 Peripheral vascular disease, unspecified | CPT/HCPCS: 11042; 97597; 97598 ==

== ENCOUNTER 2023-10-24 18:01 | Inpatient (IN) | payer MEDICARE, SELFPAY ==
[2023-10-24] VITALS (53 sets, daily range): BP systolic 78–135; BP diastolic 14–73; PULSE 57–83; RESP 11–39; TEMP 36–36.4; O2SAT 90–100
--- NOTE | 2023-10-24 18:00 | RT.EKG_ITS ---
APPROVED REPORT Exam: Resting ECG Reason for Exam: SOB Patient Location: E HR:78 bpm ECG Measurements Heart Rate 78 AXIS ND 176 P 59 QRSd 152 QRS 56 QT 470 T -33 QTc 524 Conclusion Sinus rhythm...normal P axis, V-rate 60- 99 Ventricular tachycardia, unsustained...sequence of 3 or more V complexes Probable left ventricular hypertrophy...(RaVL+SV3)xQRSd >300 Inferior infarct, age indeterminate...Q>35mS, T neg, II III aVF ST depr, consider ischemia, anterolateral lds...ST <-0.10mV, I aVL V2-V6 Sinus rhythm at a rate of 78 with paced rhythm. Not meeting Sgarbossa criteria nor modified Perez lizeth alvares for ischemia. Compared to prior dated [address] segment depressions in right chest wall leads are more pronounced.
[2023-10-24] MEDS: Aspirin 81 MG CHEW 324 MG CH (18:35)
[2023-10-24 18:36] LABS: Abs Immature Grans 0.02 10^3/uL (0.0-0.06); Absolute Basophil Count 0.13 10^3/uL (0.0-0.2); Absolute Eosinophil Count 0.19 10^3/uL (0.0-0.7); Absolute Lymphocyte Count 1.83 10^3/uL (1.2-3.4); Absolute Monocyte Count 0.88 10^3/uL (0.1-0.8); Absolute Neutrophil Count 7.59 10^3/uL (1.2-6.7); Basophils % 1.2; Eosinophils % 1.8; HCT 38.3 % (36.0-46.0); HGB 12.1 g/dL (11.2-15.7); Immature Grans % 0.2; Lymphocytes % 17.2; MCH 29.8 pg (27.0-33.0); MCHC 31.6 % (32.0-36.0); MCV 94 fL (80-95); MPV 10.9 fL (8.0-11.0); Monocytes % 8.3; Neutrophils % 71.3; Platelet Count 397 10^3/uL (130-400); RBC 4.06 10^6/uL (3.93-5.22); RDW 15.7 % (11.7-14.6); RDW-SD 53.3 fL; WBC 10.64 10^3/uL (4.4-10.8)
[2023-10-24] MEDS: nitroGLYcerin 0.4 MG TAB SL ×3 (18:36→20:00)
[2023-10-24] MEDS: Normal Saline 250 ML IV ×2 (18:52→20:30)
[2023-10-24 18:55] LABS: ALT 49 U/L (14-59); AST 50 U/L (15-37); Albumin 3.8 g/dL (3.4-5.0); Alkaline Phosphatase 109 U/L (46-116); Anion Gap 17.4 mmol/L (3-11); BUN 59 mg/dL (7-18); Bilirubin, Total 0.8 mg/dL (0.2-1.0); CO2 20.6 mmol/L (21.0-32.0); CREATININE 2.5 mg/dL (0.55-1.02); Calcium 8.9 mg/dL (8.5-10.1); Chloride 102 mmol/L (98-107); Estimated GFR 19.56 (mL/min/1.73m2); Glucose 151 mg/dL (74-106); Magnesium 2.5 mg/dL (1.8-2.4); Potassium 3.3 mmol/L (3.5-5.1); Sodium 140 mmol/L (136-145); Total Protein 7.8 g/dL (6.4-8.2)
--- NOTE | 2023-10-24 19:00 | DI.RAD_ITS ---
Exam(s) XR PORTABLE CHEST AP EXAM: XR PORTABLE CHEST AP CLINICAL HISTORY: shortness of breath TECHNIQUE: 2D digital imaging was performed. COMPARISON: CR,XR XR PORTABLE CHEST AP from 10/06/2021 FINDINGS: LUNGS: Pulmonary vascular prominence. Mildly increased interstitial changes. Findings could represe nt mild CHF. No pleural abnormality seen. HEART: Enlarged. Pacemaker. AORTA: Normal diameter. BONES: Unremarkable for age. Soft tissues: Surgical clips in left axilla. IMPRESSION: Cardiomegaly and mild CHF. DATA REPOSITORY: RADIATION DOSE DELIVERED:
[2023-10-24 19:01] LABS: Troponin I 904 ng/L (< or =60)
[2023-10-24] MEDS: Clopidogrel 300 MG TAB PO ×2 (19:08→20:12)
[2023-10-24] MEDS: Heparin in 0.45% NaCl 25,000 UNIT/250 ML BAG 9.5 UNIT IV (19:23)
[2023-10-24 19:24] LABS: INR 1.2 (0.9-1.1); PTT Activated 21.6 sec (23.6-32.8); Prothrombin Time 11.6 sec (9.1-11.1)
--- NOTE | 2023-10-24 19:45 | RT.EKG_ITS ---
APPROVED REPORT Exam: Resting ECG Reason for Exam: chest pain nstemi Patient Location: E HR:74 bpm ECG Measurements Heart Rate [address] 167 P 77 QRSd 127 QRS 105 QT 460 T -44 QTc 512 Conclusion Sinus rhythm...normal P axis, V-rate 60- 99 Probable left atrial enlargement...P >50mS, <-0.10mV V1 Nonspecific intraventricular conduction delay...QRSd >115mS, not LBBB/RBBB Anteroseptal infarct, age indeterminate...Q >35mS, T neg, V1-V2 Sinus rhythm at a rate of 74 with paced rhythm not meeting Sgarbossa nor modified Perez criteria for ischemia. Slightly improved chest wall leads ST segment depressions. No acute injury pattern. Jovanna lar to prior earlier this evening.
--- NOTE | 2023-10-24 19:54 | W.ED.GENAD ---
Discharge Plan Disposition Patient Disposition: Admit to [facility] Condition: Serious Discharge Details Chief Complaint: SOB Clinical Impression: Non-ST elevation NM (NSTEMI) Admit Date/Time: 10/24/23 20:44 Admit Provider: Clarence Newsome Attending Provider: Clarence Newsome Primary Care Provider: Maya Shi V ED Provider: Kyleigh Reyes Discharge Data Discharge Date/Time-TO BE ENTERED AT DEPARTURE: 10/24/23 22:36 HPI General Mode of arrival: ambulatory. Date/Time Provider Initiated Documentation: 10/24/23 18:01. Limitations to Documentation: no limitations. Information obtained by: patient. HPI Narrative: Presents to the emergency department by private vehicle for more several day history of substernal chest discomfort. She is followed by Dr. Hernandez in [facility] and has known heart failure with reduced ejection fraction EF 20 to 25%. She reports she was taken off Entresto secondary to her worsening kidney function. She has been compliant with all her medication. She is not fully anticoagulated. She does take aspirin daily. She did try nitro at home for her symptoms with no effect. During the night she developed worsening shortness of breath which prompted her to present here for evaluation she is having some chest discomfort that does radiate to the right chest wall. She was given aspirin 325 mg to chew and SL nitro with improvement in her symptoms. Related Data Home Medications Medication Instructions Recorded Confirmed anastrozole 1 mg tablet 1 mg PO DAILY AM 10/06/21 10/24/23 furosemide 20 mg tablet 40 mg PO DAILY AM 10/06/21 10/24/23 gabapentin 300 mg capsule 300 mg PO BID 10/06/21 10/24/23 losartan 25 mg tablet 12.5 mg PO DAILY 10/06/21 10/24/23 metoprolol tartrate 50 mg tablet 50 mg PO DAILY 06/25/22 10/24/23 aspirin 81 mg tablet,delayed 81 mg PO DAILY 09/26/22 10/24/23 release (Adult Low Dose Aspirin) cholecalciferol (vitamin D3) 50 50 mcg PO DAILY 09/26/22 10/24/23 mcg (2,000 unit) capsule acetaminophen 500 mg tablet 1,000 mg PO .COMPLEX PRN 02/19/23 10/24/23 (Tylenol Extra Strength) coenzyme Q10 30 mg capsule 30 mg PO DAILY 02/19/23 10/24/23 nitroglycerin 0.4 mg sublingual 0.4 mg sublingual .COMPLEX 02/19/23 10/24/23 tablet (Nitrostat) capsaicin 0.1 % topical cream 1 applic topical TID PRN pain 03/13/23 10/24/23 relief #60 grams multivitamin 1 tab PO DAILY 04/29/23 10/24/23 insulin detemir U-100 100 unit/mL See Rx Instructions subcut BID 06/11/23 10/24/23 (3 mL) subcutaneous pen (Levemir FlexTouch U-100 Insulin) Previous Rx's Medication Instructions Recorded capsaicin 0.1 % topical cream 1 applic topical TID PRN pain 03/13/23 relief #60 grams Allergies Allergy/AdvReac Type Severity Reaction Status Date / Time ezetimibe [From Zetia] Allergy Intermediate . Unverified 10/24/23 18:10 lisinopril Allergy Intermediate . Verified 10/24/23 18:10 simvastatin Allergy Intermediate . Unverified 10/24/23 18:10 hydrochlorothiazide Allergy Unknown . Verified 10/24/23 18:10 niacin Allergy Unknown . Verified 10/24/23 18:10 rosuvastatin Allergy Unknown . Verified 10/24/23 18:10 atorvastatin AdvReac Intermediate leg aches Verified 10/24/23 18:10 vitamin b 12 Allergy Unknown . Uncoded 10/24/23 18:10 General Stated Complaint: SOB BRYANT: 2 Review of Systems All systems reviewed & are unremarkable except as noted in HPI and below Exam Narrative Exam Narrative: Elderly female of stated age in no acute distress skin is pale warm and dry head is atraumatic EOMs intact eyes are nonicteric noninjected neck is supple. Cardiovascular regular rate and rhythm I do not appreciate any murmurs her breath sounds are clear bilaterally no Rales or rhonchi. Her abdomen is soft round nontender her extremities are without edema skin without rashes or lesions neurologic she is awake alert oriented psychiatric normal mood and affect. Vital signs are stable but blood pressure did drop to the 90s systolic after receiving 2 nitroglycerin. She is oxygenating 95% on room air Course Vital Signs Vital signs: Vital Signs Temperature 36.4 C L 10/24/23 18:04 Pulse 83 10/24/23 18:04 Respiratory Rate 10/24/23 18:04 Blood Pressure 107/61 10/24/23 18:04 Pulse Oximetry 99 10/24/23 18:04 Temperature 36.4 C L 10/24/23 18:24 Temperature Source Temporal Artery Scan 10/24/23 18:24 Pulse 73 10/24/23 19:31 Pulse 74 10/24/23 19:31 Respiratory Rate 17 10/24/23 19:31 Respiratory Effort Normal, Non-Labored 10/24/23 18:24 Respiratory Depth Normal 10/24/23 18:24 Respiratory Pattern Normal 10/24/23 18:24 Blood Pressure 135/64 10/24/23 19:31 Blood Pressure Mean 87 10/24/23 19:31 Blood Pressure Position Sitting 10/24/23 18:24 Pulse Oximetry 100 10/24/23 19:31 Oxygen Delivery Method Room Air 10/24/23 18:24 Oxygen Flow Rate 0 10/24/23 18:24 Pain Level 1 10/24/23 18:47 Lab/Test Results Lab/Test Results: Laboratory Tests Range/Units 10/24/23 10/24/23 10/24/23 18:20 18:29 18:29 WBC (4.4-10.8) 10^3/uL 10.64 RBC (3.93-5.22) 10^6/uL 4.06 Hgb (11.2-15.7) g/dL 12.1 Hct (36.0-46.0) % 38.3 MCV (80-95) fL 94 MCH (27.0-33.0) pg 29.8 MCHC (32.0-36.0) % 31.6 L RDW (11.7-14.6) % 15.7 H Plt Count (130-400) 10^3/uL 397 MPV (8.0-11.0) fL 10.9 Immature Gran % 0.2 Neutrophils % 71.3 Lymphocytes % 17.2 Monocytes % 8.3 Eosinophils % 1.8 Basophils % 1.2 Nucleated RBC % (0.0-0.3) % 0.0 Absolute Neutrophils (1.2-6.7) 10^3/uL 7.59 H Absolute Lymphocytes (1.2-3.4) 10^3/uL 1.83 Absolute Monocytes (0.1-0.8) 10^3/uL 0.88 H Absolute Eosinophils (0.0-0.7) 10^3/uL 0.19 Absolute Basophils (0.0-0.2) 10^3/uL 0.13 PT (9.1-11.1) sec 11.6 H Cancelled INR (0.9-1.1) 1.2 H APTT (23.6-32.8) sec Sodium (136-145) mmol/L Potassium (3.5-5.1) mmol/L Chloride (98-107) mmol/L Carbon Dioxide (21.0-32.0) mmol/L Anion Gap (3-11) mmol/L BUN (7-18) mg/dL Creatinine (0.55-1.02) mg/dL Est GFR (CKD-EPI 2020) (mL/min/1.73m2) Glucose (74-106) mg/dL Calcium (8.5-10.1) mg/dL Magnesium (1.8-2.4) mg/dL Total Bilirubin (0.2-1.0) mg/dL AST (15-37) U/L ALT (14-59) U/L Alkaline Phosphatase (46-116) U/L Troponin I (< or =60) ng/L NT-Pro-B Natriuret Pep (<300) pg/mL 70033 H Total Protein (6.4-8.2) g/dL Albumin (3.4-5.0) g/dL Range/Units 10/24/23 18:29 WBC (4.4-10.8) 10^3/uL RBC (3.93-5.22) 10^6/uL Hgb (11.2-15.7) g/dL Hct (36.0-46.0) % MCV (80-95) fL MCH (27.0-33.0) pg MCHC (32.0-36.0) % RDW (11.7-14.6) % Plt Count (130-400) 10^3/uL MPV (8.0-11.0) fL Immature Gran % Neutrophils % Lymphocytes % Monocytes % Eosinophils % Basophils % Nucleated RBC % (0.0-0.3) % Absolute Neutrophils (1.2-6.7) 10^3/uL Absolute Lymphocytes (1.2-3.4) 10^3/uL Absolute Monocytes (0.1-0.8) 10^3/uL Absolute Eosinophils (0.0-0.7) 10^3/uL Absolute Basophils (0.0-0.2) 10^3/uL PT (9.1-11.1) sec INR (0.9-1.1) Cancelled APTT (23.6-32.8) sec 21.6 L Sodium (136-145) mmol/L 140 Potassium (3.5-5.1) mmol/L 3.3 L Chloride (98-107) mmol/L 102 Carbon Dioxide (21.0-32.0) mmol/L 20.6 L Anion Gap (3-11) mmol/L 17.4 H BUN (7-18) mg/dL 59 H Creatinine (0.55-1.02) mg/dL 2.5 H Est GFR (CKD-EPI 2020) (mL/min/1.73m2) 19.56 Glucose (74-106) mg/dL 151 H Calcium (8.5-10.1) mg/dL 8.9 Magnesium (1.8-2.4) mg/dL 2.5 H Total Bilirubin (0.2-1.0) mg/dL 0.8 AST (15-37) U/L 50 H ALT (14-59) U/L 49 Alkaline Phosphatase (46-116) U/L 109 Troponin I (< or =60) ng/L 904 H* NT-Pro-B Natriuret Pep (<300) pg/mL Total Protein (6.4-8.2) g/dL 7.8 Albumin (3.4-5.0) g/dL 3.8 Medical Decision Making 77-year-old female patient with extensive cardiac history presents to the emergency department with symptoms concerning for unstable angina versus acute coronary syndrome. She will be given aspirin 324 mg to chew and sublingual nitroglycerin while awaiting investigations. An IV has been established labs sent to include CMP BN P CBC magnesium and troponin. Will obtain a chest x-ray clinically she does not appear fluid overloaded with clear breath sounds oxygenating in the mid to high 90s on room air with no peripheral edema. Chest x-ray does show mild congestive changes. After receiving 2 SL nitro her chest pain resolved but her blood pressure did drop to the 90s systolic. She was asymptomatic and actually reporting improvement in her symptoms she was given a 250 cc bolus of fluid. Initial troponin comes back elevated at 900 she at this time was given Plavix 300 mg atorvastatin 80 mg was ordered but this was held as she is on pravastatin which I did not see on her med list. She was also started a heparin drip for ACS protocol. Her case was discussed with cardiology at [facility] and they did recommend an additional 300 mg of Plavix in addition to atorvastatin 40 mg. She had reoccurrence of her pain which did respond to 1 additional SL nitro. She has been accepted in transfer to [facility] accepting provider is Dr. SANDERS but unfortunately a bed is not available tonight so she will stay here in our ICU overnight until bed available. her case was discussed with Dr. Liao who has accepted her. While awaiting admission in the emergency department she experienced increasing pain rating up into her right neck. Nitropaste was applied her blood pressure did drop into the 80s systolic. She was given an additional 200 cc bolus of normal saline. The Nitropaste was removed and she was given morphine 2 mg IV push for worsening pain, her pressure remained in the high 80s systolic, at this point she was experiencing nausea and was given Zofran 4 mg IV push. Troponin repeat was 1425. I did place a call [facility] to update cardiology on her increased pain and clinical course. At this time she is now pain free recommendations moving forward would be to trial low-dose nitro drip for recurrence of her pain. Medical Records Medical records reviewed: Yes I reviewed the patient's medical records. Imaging Data Radiologic Study: Imaging: X-Ray Radiologist's impression: Exam(s) PROCEDURE INFORMATION: Exam: XR Chest Exam date and time: 10/24/2023 7:25 PM Age: 77 years old Clinical indication: Shortness of breath TECHNIQUE: Imaging protocol: Radiologic exam of the chest. Views: 1 view. COMPARISON: CR XR PORTABLE CHEST AP 10/06/2021 9:21 PM FINDINGS: Tubes, catheters and devices: Cardiac pacemaker remains in place. Lungs: There has developed mild diffuse pulmonary vascular prominence. No analia pulmonary consolidation. Pleural spaces: Unremarkable. No pleural effusion. No pneumothorax. Heart/Mediastinum: Cardiac silhouette appears top-normal in size. Bones/joints: Unremarkable. IMPRESSION: Mild congestive changes Dictated and Authenticated by: Manuel Hoover MD. Ordering:DESTINY Arizmendi MD Lab Data Lab results reviewed: Yes I reviewed the patient's lab results. Labs: Laboratory Results - last 24 hr 10/24/23 10/24/23 10/24/23 18:20 18:29 18:29 WBC 10.64 RBC 4.06 Hgb 12.1 Hct 38.3 MCV 94 MCH 29.8 MCHC 31.6 L RDW 15.7 H Plt Count 397 MPV 10.9 Immature Gran % 0.2 Neutrophils % 71.3 Lymphocytes % 17.2 Monocytes % 8.3 Eosinophils % 1.8 Basophils % 1.2 Nucleated RBC % 0.0 Absolute Neutrophils 7.59 H Absolute Lymphocytes 1.83 Absolute Monocytes 0.88 H Absolute Eosinophils 0.19 Absolute Basophils 0.13 PT 11.6 H Cancelled INR 1.2 H APTT Sodium Potassium Chloride Carbon Dioxide Anion Gap BUN Creatinine Est GFR (CKD-EPI 2020) Glucose Calcium Magnesium Total Bilirubin AST ALT Alkaline Phosphatase Troponin I NT-Pro-B Natriuret Pep 50666 H Total Protein Albumin 10/24/23 18:29 WBC RBC Hgb Hct MCV MCH MCHC RDW Plt Count MPV Immature Gran % Neutrophils % Lymphocytes % Monocytes % Eosinophils % Basophils % Nucleated RBC % Absolute Neutrophils Absolute Lymphocytes Absolute Monocytes Absolute Eosinophils Absolute Basophils PT INR Cancelled APTT 21.6 L Sodium 140 Potassium 3.3 L Chloride 102 Carbon Dioxide 20.6 L Anion Gap 17.4 H BUN 59 H Creatinine 2.5 H Est GFR (CKD-EPI 2020) 19.56 Glucose 151 H Calcium 8.9 Magnesium 2.5 H Total Bilirubin 0.8 AST 50 H ALT 49 Alkaline Phosphatase 109 Troponin I 904 H* NT-Pro-B Natriuret Pep Total Protein 7.8 Albumin 3.8 Quality:SDOH Health Related Social Needs: No Data to Display PFSH All Active Problems (Updated 10/24/23 @ 22:42 by Kyleigh Reyes, CARMINA) Ischemic ulcer of right foot (Acute) PVD (peripheral vascular disease) (Chronic) Type 2 diabetes mellitus with peripheral neuropathy (Acute) Renal calculi (Chronic) Invasive ductal carcinoma of breast (Acute) Lung nodule (Acute) Goiter (Acute) Myalgia (Acute) B12 deficiency (Acute) Cardiac defibrillator in place (Acute) Night sweats (Acute) Renal insufficiency (Chronic) Upper arm pain (Acute) Back pain (Acute) Physical deconditioning (Acute) Skin lesion (Acute) Trigger finger (Acute) Constipation (Acute) Hyperlipidemia (Acute) Hematuria (Acute) Hydronephrosis (Acute) Liver lesion (Acute) Toe pain, left (Acute) Toe pain, right (Acute) Idiopathic progressive neuropathy (Acute) Nail dystrophy (Acute) Toxic metabolic encephalopathy (Acute) Acute kidney injury superimposed on chronic kidney disease (Acute) Hyperglycemia (Acute) Dental abscess (Acute) Non-ST elevation NM (NSTEMI) (Acute) Elevated troponin I level (Acute) Acute kidney injury (Acute) Encounter for screening for other viral diseases (Acute) Medical History Breast cancer In remission; on anastrozole therapy Myocardial infarction Syncope CAD (coronary artery disease) Hypertension CKD (chronic kidney disease) Diabetes Surgical History S/P cardiac cath [facility] [place] 2013 MICHELLE S/P placement of cardiac pacemaker required a 2nd procedure to fix electrode. Social History Smoking/Tobacco Use Status: Never Smoking risk assessment performed?: Yes Alcohol Intake: never Drug use: Never Substance use type: does not use Do you feel safe at home: Yes Do you feel safe in your relationship?: Yes
[2023-10-24] MEDS: Normal Saline Flush 10 ML SYR IVP (20:03)
--- NOTE | 2023-10-24 20:11 | DI.VRAD_ITS ---
PROCEDURE INFORMATION: Exam: XR Chest Exam date and time: 10/24/2023 7:25 PM Age: 77 years old Clinical indication: Shortness of breath TECHNIQUE: Imaging protocol: Radiologic exam of the chest. Views: 1 view. COMPARISON: CR XR PORTABLE CHEST AP 10/06/2021 9:21 PM FINDINGS: Tubes, catheters and devices: Cardiac pacemaker remains in place. Lungs: There has developed mild diffuse pulmonary vascular prominence. No analia pulmonary consolidation. Pleural spaces: Unremarkable. No pleural effusion. No pneumothorax. Heart/Mediastinum: Cardiac silhouette appears top-normal in size. Bones/joints: Unremarkable. IMPRESSION: Mild congestive changes Dictated and Authenticated by: Manuel Hoover MD. Ordering:DESTINY Arizmendi MD
[2023-10-24] MEDS: Atorvastatin 40 MG TAB PO (20:13)
[2023-10-24] MEDS: nitroGLYcerin 2% 1 INCH/1 GM PKT TP (20:53)
[2023-10-24] MEDS: MORPHine 10 MG/ML VIAL 2 MG IVP (21:08)
--- NOTE | 2023-10-24 21:15 | RT.EKG_ITS ---
APPROVED REPORT Exam: Resting ECG Reason for Exam: chest pain Patient Location: E HR:69 bpm ECG Measurements Heart Rate 69 AXIS MS 157 P [id number] QRSd 122 QRS 116 QT 475 T [id number] QTc 508 Conclusion Ventricular-paced rhythm V paced rhythm
[2023-10-24 21:20] LABS: Troponin I 1425 ng/L (< or =60)
[2023-10-24] MEDS: Ondansetron 4 MG/2 ML VIAL IVP (21:38)
--- NOTE | 2023-10-24 22:14 | W.PC.ACHO ---
Registration Status: REG ER Primary Language: Preferred Language: Romansh ED Information & Data Chief Complaint SOB 10/24/23 19:59 Triage Note SOB most of the day, intense 10/24/23 18:04 pain in the right shoulder- took 2 advil for it Medical / Surgical History (Last Reviewed 10/20/23 @ 10:45 by Joanne Woods DPM) Breast cancer Myocardial infarction Syncope CAD (coronary artery disease) Hypertension CKD (chronic kidney disease) Diabetes (Last Reviewed 10/20/23 @ 10:45 by Joanne Woods DPM) S/P cardiac cath S/P placement of cardiac pacemaker Most Recent Vital Signs Temperature 36.4 C L 10/24/23 18:24 Temperature Source Temporal Artery Scan 10/24/23 18:24 Pulse 71 10/24/23 21:31 Pulse 69 10/24/23 21:40 Respiratory Rate 11 L 10/24/23 21:40 Respiratory Effort Normal, Non-Labored 10/24/23 18:24 Respiratory Depth Normal 10/24/23 18:24 Respiratory Pattern Normal 10/24/23 18:24 Blood Pressure 98/61 L 10/24/23 21:31 Blood Pressure Mean 73 10/24/23 21:31 Blood Pressure Position Sitting 10/24/23 18:24 Pulse Oximetry 97 10/24/23 21:40 Oxygen Delivery Method Room Air 10/24/23 18:24 Oxygen Flow Rate 0 10/24/23 18:24 Pain Level 6 10/24/23 21:08 Allergies ezetimibe [From Zetia] Allergy (Intermediate, Unverified 10/24/23 18:10) . lisinopril Allergy (Intermediate, Verified 10/24/23 18:10) . simvastatin Allergy (Intermediate, Unverified 10/24/23 18:10) . hydrochlorothiazide Allergy (Unknown, Verified 10/24/23 18:10) . niacin Allergy (Unknown, Verified 10/24/23 18:10) . rosuvastatin Allergy (Unknown, Verified 10/24/23 18:10) . atorvastatin Adverse Reaction (Intermediate, Verified 10/24/23 18:10) leg aches vitamin b 12 Allergy (Unknown, Uncoded 10/24/23 18:10) . Precautions Isolation Standard precaution 10/24/23 18:10 Active Medications Generic Name Dose Route Start Last Admin Trade Name Freq PRN Reason Stop Dose Admin Heparin Sodium/Sodium Chloride 25,000 unit in 250 mls @ 9.5 mls/hr 10/24/23 19:00 10/24/23 19:23 IV 950 units/hr INFUSION BESSY 9.5 mls/hr Administration Protocol 950 UNITS/HR Sodium Chloride 250 mls @ 200 mls/hr 10/24/23 21:32 10/24/23 21:34 Saline 1000ml Bag IV 10/24/23 22:46 Not Given BOLUS ONE Sodium Chloride 1,000 mls @ 1,000 mls/hr 10/24/23 21:34 10/24/23 21:36 Saline 1000ml Bag IV 10/24/23 22:33 Not Given BOLUS ONE Sodium Chloride 250 mls @ 250 mls/hr 10/24/23 21:36 10/24/23 21:37 Saline 1000ml Bag IV 10/24/23 22:35 Infused BOLUS ONE Infusion Morphine Sulfate 2 mg 10/24/23 20:59 10/24/23 21:08 Morphine 10 Mg/Ml Vial IVP 2 mg DIRECTED PRN Administration Nitroglycerin 0.4 mg 10/24/23 18:26 10/24/23 20:00 Nitroglycerin 0.4 Mg Tab SL 0.4 mg Q5 MIN PRN X3 PRN Administration Sodium Chloride 0 ml 10/24/23 20:00 10/24/23 20:03 Normal Saline Flush 10 Ml Syr IVP 10 ml BID BESSY Administration IV IV Catheter Type [Right Saline Lock Forearm] IV Catheter Type [Right Diffusix Antecubital] IV Catheter Gauge [Right 22 Forearm] IV Catheter Gauge [Right 20 Antecubital] Diet Orders Category Date Time Status Diabetes Consistent CHO/Low Na [DIET] Nutrition 10/24/23 Dinner Active Diagnostics 10/24/23 10/24/23 10/24/23 Range/Units 20:55 18:29 18:29 WBC (4.4-10.8) 10^3/uL RBC (3.93-5.22) 10^6/uL Hgb (11.2-15.7) g/dL Hct (36.0-46.0) % MCV (80-95) fL MCH (27.0-33.0) pg MCHC (32.0-36.0) % RDW (11.7-14.6) % Plt Count (130-400) 10^3/uL MPV (8.0-11.0) fL Immature Gran % Neutrophils % Lymphocytes % Monocytes % Eosinophils % Basophils % Nucleated RBC % (0.0-0.3) % Absolute Neutrophils (1.2-6.7) 10^3/uL Absolute Lymphocytes (1.2-3.4) 10^3/uL Absolute Monocytes (0.1-0.8) 10^3/uL Absolute Eosinophils (0.0-0.7) 10^3/uL Absolute Basophils (0.0-0.2) 10^3/uL PT Cancelled (9.1-11.1) sec INR Cancelled 1.2 H (0.9-1.1) APTT 21.6 L (23.6-32.8) sec Sodium 140 (136-145) mmol/L Potassium 3.3 L (3.5-5.1) mmol/L Chloride 102 (98-107) mmol/L Carbon Dioxide 20.6 L (21.0-32.0) mmol/L Anion Gap 17.4 H (3-11) mmol/L BUN 59 H (7-18) mg/dL Creatinine 2.5 H (0.55-1.02) mg/dL Est GFR (CKD-EPI 2020) 19.56 (mL/min/1.73m2) Glucose 151 H (74-106) mg/dL Calcium 8.9 (8.5-10.1) mg/dL Magnesium 2.5 H (1.8-2.4) mg/dL Total Bilirubin 0.8 (0.2-1.0) mg/dL AST 50 H (15-37) U/L ALT 49 (14-59) U/L Alkaline Phosphatase 109 (46-116) U/L Troponin I 1425 H* 904 H* (< or =60) ng/L NT-Pro-B Natriuret Pep (<300) pg/mL Total Protein 7.8 (6.4-8.2) g/dL Albumin 3.8 (3.4-5.0) g/dL 10/24/23 10/24/23 Range/Units 18:29 18:20 WBC 10.64 (4.4-10.8) 10^3/uL RBC 4.06 (3.93-5.22) 10^6/uL Hgb 12.1 (11.2-15.7) g/dL Hct 38.3 (36.0-46.0) % MCV 94 (80-95) fL MCH 29.8 (27.0-33.0) pg MCHC 31.6 L (32.0-36.0) % RDW 15.7 H (11.7-14.6) % Plt Count 397 (130-400) 10^3/uL MPV 10.9 (8.0-11.0) fL Immature Gran % 0.2 Neutrophils % 71.3 Lymphocytes % 17.2 Monocytes % 8.3 Eosinophils % 1.8 Basophils % 1.2 Nucleated RBC % 0.0 (0.0-0.3) % Absolute Neutrophils 7.59 H (1.2-6.7) 10^3/uL Absolute Lymphocytes 1.83 (1.2-3.4) 10^3/uL Absolute Monocytes 0.88 H (0.1-0.8) 10^3/uL Absolute Eosinophils 0.19 (0.0-0.7) 10^3/uL Absolute Basophils 0.13 (0.0-0.2) 10^3/uL PT 11.6 H (9.1-11.1) sec INR (0.9-1.1) APTT (23.6-32.8) sec Sodium (136-145) mmol/L Potassium (3.5-5.1) mmol/L Chloride (98-107) mmol/L Carbon Dioxide (21.0-32.0) mmol/L Anion Gap (3-11) mmol/L BUN (7-18) mg/dL Creatinine (0.55-1.02) mg/dL Est GFR (CKD-EPI 2020) (mL/min/1.73m2) Glucose (74-106) mg/dL Calcium (8.5-10.1) mg/dL Magnesium (1.8-2.4) mg/dL Total Bilirubin (0.2-1.0) mg/dL AST (15-37) U/L ALT (14-59) U/L Alkaline Phosphatase (46-116) U/L Troponin I (< or =60) ng/L NT-Pro-B Natriuret Pep 03782 H (<300) pg/mL Total Protein (6.4-8.2) g/dL Albumin (3.4-5.0) g/dL Intake and Output - 24 Hour Total 10/24/23 18:01 thru 10/24/23 21:37 Intake Total 520 Balance 520 Weight 78.018 kg Intake: IV 520 Falls Risk Assessment History of Falls No History 10/24/23 18:24 Contributing Factors No Factors 10/24/23 18:24 Ambulatory Aids Independent 10/24/23 18:24 Tubes/Lines W/no contributing factors 10/24/23 18:24 Gait Evaluation No gait disturbance 10/24/23 18:24 Cognition No cognitive impairment 10/24/23 18:24 Fall Total Score 10 10/24/23 18:24 Level of Risk Standard/Low Risk 10/24/23 18:24 v v v v v v v v v Sending and/or Receiving Nurses: Please use comment section below to note any information pertinent to the patient hand-off not included above. Information / Comments: SOB CP weaknes last few days, arrival sternal pain pacer interrogated recently trop elevated and climbing today BNP [id number] st depression nstemi Report received from: Titi DIAZ
--- NOTE | 2023-10-24 23:13 | HPE_ITS ---
Date of service: 10/24/23 Time of Service: 22:20 Assessment and Plan Assessment and plan (1) Non-ST elevation PR (NSTEMI): Status: Acute Assessment and plan: Even though pain not typical, The episodes of pain releived by nitroglycerin and the EKG and troponin all suggest some degree of cardiac ischemia. The case was reviewed with cardiology and patient is accepted for transfer in the AM for likely cardiac catheterization . Patient has been loaded on ASA, clopidogrel, and heparin drip. She has received high intensity statin. BPs have been soft after NTG, and she did respond to 250ml fluid boluses, but try to avoid this with some congestion on her CXR and known reduced LVEF. (2) Heart failure with reduced ejection fraction due to coronary artery disease: Status: Acute Assessment and plan: She is not currently fluids overloaded clinically despite BNaP and chest x-ray. She is taking the higher dose of furosemide (40mg) She would benefit from getting back on an SGLT2i, as well as an aldosterone antagonist, though we will defer this to outpatient. She is on losartan and carvedilol low dose. BP is too low to increase these or add additional agents for now. Diurese if she starts to have clinical signs of fluid overload. (3) Ischemic ulcer of right foot: Status: Acute Assessment and plan: This has been followed by podiatry. PAD is complicating along with di (4) Hypokalemia: Status: Acute Assessment and plan: likely a/w recent increase in forusemide. Mg okay. (5) Type 2 diabetes mellitus with peripheral neuropathy: Status: Acute Assessment and plan: She has been well controlled (6) Invasive ductal carcinoma of breast: Status: Acute Assessment and plan: In remission, continue hormonal therapy with anastrazole (7) CKD (chronic kidney disease): Assessment and plan: She is in her baseline range GFR of 20-25%. Continue to monitor Qualifiers: Chronic kidney disease stage: stage 4 (severe) Qualified Code(s): N18.4 - Chronic kidney disease, stage 4 (severe) (8) DVT prophylaxis: Status: Acute Assessment and plan: She is on full dose heparin. History of Present Illness History of Present Illness Chief Complaint: chest/neck pain Narrative: 77 yo F with history of type 2 DM, PAD, stage 4 CKD, CAD s/p PCI/MICHELLE with associated HFrEF with LVEF 20-25% who is presenting with episodic right sided chest discomfort. She states she has felt a bit off since her abdominal MRI in August, thinks it affected her pacemaker, and had felt a little more SOB and intermittently lightheaded. 2 days ago she started getting right sided chest to shoulder and neck discomfort. Mild, lasting a few minutes at a time, associated with some increased shortness of breath and lightheadedness. She did not get nausea, diaphoresis, or palpitations with the discomfort. Discomfort feels sore and tight. Rubbing the shoulder/neck with cream seemed to help, as did ibuprofen. She took some NTG and this also seemed to help. The associated shortness of breath was getting worse, so she came into the hospital. In the emergency room she had at least 3 episodes of the same pain that resolved with NTG. She also got aspirin with the initial episode. She recently saw Dr. Hernandez about 2 weeks ago, no chest pain reported at that time. She did increase the furosemide to the full 40mg from 20mg at that time. No other changes to medications. She has been prescribed Jardiance but hasn't been able to afford it. PCP lists Invokanna instead but she hasn't gotten this from the pharmacy. She has been getting an ulcer on her right great toe treated at podiatry with some debridement. It has improved slowly per patient. Review of Systems Constitutional Constitutional: Denies anorexia, Denies chills, Reports fatigue, Denies fever(s), Denies headache(s), Denies weakness, Denies weight gain and Denies weight loss Eyes Eyes: Denies change in vision and Denies irritation ENT Ears, Nose, Mouth, and Throat: Denies vertigo, Denies headache(s), Denies nasal congestion, Denies nasal discharge and Denies sore throat Cardiovascular Cardiovascular: Denies chest pain with activity, Denies syncope, Denies palpitations and Reports orthopnea Respiratory Respiratory: Denies cough, Denies excessive phlegm production and Denies wheezing Gastrointestinal Gastrointestinal: Denies abdominal pain, Denies melena, Denies hematochezia, Reports constipation (takes prunes at times, no recent change), Denies heartburn, Denies diarrhea, Denies nausea and Denies vomiting Genitourinary Genitourinary: Denies hematuria, Reports nocturia, Denies dysuria and Denies urinary incontinence Musculoskeletal Musculoskeletal: Denies arthralgias Integumentary/Breasts Skin/Breast: Denies rash and Reports skin ulcer Neurologic Neurologic: Denies confusion, Denies vertigo, Denies syncope, Denies headache(s), Denies localized weakness, Denies sensory deficit, Denies paresthesias, Denies tremor(s) and Denies weakness Psychiatric Psychiatric: Denies anxiety, Denies confusion, Denies depression and Denies mood swings Endocrine Endocrine: Reports fatigue and Denies palpitations Hematologic/Lymphatic Hematologic/Lymphatic: Denies easy bleeding Allergic/Immunologic Allergic/Immunologic: Denies wheezing PFSH All Active Problems (Updated 10/24/23 @ 23:53 by Clarence Newsome) Heart failure with reduced ejection fraction due to coronary artery disease (Acute) Hypokalemia (Acute) DVT prophylaxis (Acute) Ischemic ulcer of right foot (Acute) PVD (peripheral vascular disease) (Chronic) Type 2 diabetes mellitus with peripheral neuropathy (Acute) Renal calculi (Chronic) Invasive ductal carcinoma of breast (Acute) Lung nodule (Acute) Goiter (Acute) Myalgia (Acute) B12 deficiency (Acute) Cardiac defibrillator in place (Acute) Night sweats (Acute) Renal insufficiency (Chronic) Upper arm pain (Acute) Back pain (Acute) Physical deconditioning (Acute) Skin lesion (Acute) Trigger finger (Acute) Constipation (Acute) Hyperlipidemia (Acute) Hematuria (Acute) Hydronephrosis (Acute) Liver lesion (Acute) Toe pain, left (Acute) Toe pain, right (Acute) Idiopathic progressive neuropathy (Acute) Nail dystrophy (Acute) Toxic metabolic encephalopathy (Acute) Acute kidney injury superimposed on chronic kidney disease (Acute) Hyperglycemia (Acute) Dental abscess (Acute) Non-ST elevation PR (NSTEMI) (Acute) Elevated troponin I level (Acute) Acute kidney injury (Acute) Encounter for screening for other viral diseases (Acute) Medical History Breast cancer In remission; on anastrozole therapy Myocardial infarction Syncope CAD (coronary artery disease) Hypertension CKD (chronic kidney disease) Diabetes Surgical History S/P cardiac cath [facility] [place] 2013 MICHELLE S/P placement of cardiac pacemaker required a 2nd procedure to fix electrode. 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 Unverified 10/24/23 18:10 lisinopril Allergy Intermediate . Verified 10/24/23 18:10 simvastatin Allergy Intermediate . Unverified 10/24/23 18:10 hydrochlorothiazide Allergy Unknown . Verified 10/24/23 18:10 niacin Allergy Unknown . Verified 10/24/23 18:10 rosuvastatin Allergy Unknown . Verified 10/24/23 18:10 atorvastatin AdvReac Intermediate leg aches Verified 10/24/23 18:10 vitamin b 12 Allergy Unknown . Uncoded 10/24/23 18:10 Home Medications Medication Instructions Recorded Confirmed Type anastrozole 1 mg tablet 1 mg PO DAILY AM 10/06/21 10/24/23 History furosemide 20 mg tablet 40 mg PO DAILY AM 10/06/21 10/24/23 History gabapentin 300 mg capsule 300 mg PO BID 10/06/21 10/24/23 History losartan 25 mg tablet 12.5 mg PO DAILY 10/06/21 10/24/23 History metoprolol tartrate 50 mg tablet 50 mg PO DAILY 06/25/22 10/24/23 History aspirin 81 mg tablet,delayed 81 mg PO DAILY 09/26/22 10/24/23 History release (Adult Low Dose Aspirin) cholecalciferol (vitamin D3) 50 50 mcg PO DAILY 09/26/22 10/24/23 History mcg (2,000 unit) capsule acetaminophen 500 mg tablet 1,000 mg PO .COMPLEX PRN 02/19/23 10/24/23 History (Tylenol Extra Strength) coenzyme Q10 30 mg capsule 30 mg PO DAILY 02/19/23 10/24/23 History nitroglycerin 0.4 mg sublingual 0.4 mg sublingual .COMPLEX 02/19/23 10/24/23 History tablet (Nitrostat) capsaicin 0.1 % topical cream 1 applic topical TID PRN pain 03/13/23 10/24/23 Rx relief #60 grams multivitamin 1 tab PO DAILY 04/29/23 10/24/23 History insulin detemir U-100 100 unit/mL See Rx Instructions subcut BID 06/11/23 10/24/23 History (3 mL) subcutaneous pen (Levemir FlexTouch U-100 Insulin) Exam Narrative Exam Narrative: GEN: Alert and oriented, pleasant and cooperative, gives linear history. No acute distress at rest. HEENT: Head atraumatic. Conjunctiva clear, no icterus. PEERL, EOMI. no rhinorrhea. MMM, OP benign. Neck is supple with no masses or lymphadenopathy, trachea midline LUNGS: CTAB with normal effort CV: RRR with no murmurs, gallops, or rubs. thready DP pulses bilaterally. ABD: +BS, soft, NT/ND EXT: no cyanosis, clubbing, or edema MSK: No joint redness or swelling NEURO: CN 2-12 grossly intact. Normal movement of 4 extremities. Normal speech and coordination SKIN: No rashes. ~8mm dry non-tender ulceration distal right 1st toe. No other sores/wounds. PSYCH: normal mood and affect Results Imaging Chest x-ray: report reviewed (mild pulmonary congestion) and image reviewed EKG: report reviewed and image reviewed (NSR, lateral ST depression that improves with subsequent EKGs (1800, 1945, 2115). No STEMI. ) Labs 10/24/23 18:29 10/24/23 18:29 Labs: Laboratory Results - last 24 hr 10/24/23 10/24/23 10/24/23 18:20 18:29 18:29 WBC 10.64 RBC 4.06 Hgb 12.1 Hct 38.3 MCV 94 MCH 29.8 MCHC 31.6 L RDW 15.7 H Plt Count 397 MPV 10.9 Immature Gran % 0.2 Neutrophils % 71.3 Lymphocytes % 17.2 Monocytes % 8.3 Eosinophils % 1.8 Basophils % 1.2 Nucleated RBC % 0.0 Absolute Neutrophils 7.59 H Absolute Lymphocytes 1.83 Absolute Monocytes 0.88 H Absolute Eosinophils 0.19 Absolute Basophils 0.13 PT 11.6 H Cancelled INR 1.2 H APTT Sodium Potassium Chloride Carbon Dioxide Anion Gap BUN Creatinine Est GFR (CKD-EPI 2020) Glucose Calcium Magnesium Total Bilirubin AST ALT Alkaline Phosphatase Troponin I NT-Pro-B Natriuret Pep 42312 H Total Protein Albumin 10/24/23 10/24/23 18:29 20:55 WBC RBC Hgb Hct MCV MCH MCHC RDW Plt Count MPV Immature Gran % Neutrophils % Lymphocytes % Monocytes % Eosinophils % Basophils % Nucleated RBC % Absolute Neutrophils Absolute Lymphocytes Absolute Monocytes Absolute Eosinophils Absolute Basophils PT INR Cancelled APTT 21.6 L Sodium 140 Potassium 3.3 L Chloride 102 Carbon Dioxide 20.6 L Anion Gap 17.4 H BUN 59 H Creatinine 2.5 H Est GFR (CKD-EPI 2020) 19.56 Glucose 151 H Calcium 8.9 Magnesium 2.5 H Total Bilirubin 0.8 AST 50 H ALT 49 Alkaline Phosphatase 109 Troponin I 904 H* 1425 H* NT-Pro-B Natriuret Pep Total Protein 7.8 Albumin 3.8 Last Vital Signs Temp 36.4 C L 10/24/23 18:24 Pulse 71 10/24/23 21:31 Resp 11 L 10/24/23 21:40 BP 98/61 L 10/24/23 21:31 Pulse Ox 97 10/24/23 21:40 Time Spent Time spent with Patient: >75 minutes Time was spent: preparing to see the patient(eg.review tests), obtaining and/or reviewing separately otained hiistory, ordering medications,tests, procedures, referring, communicating with other health care transitions manager, indepentently interpreting results and counseling the patient
[2023-10-25] VITALS (50 sets, daily range): BP systolic 42–200; BP diastolic 10–182; PULSE 0–163; RESP 13–96; O2SAT 67–80
--- NOTE | 2023-10-25 | DI.RAD_ITS ---
Exam(s) XR PORTABLE CHEST AP EXAM: XR PORTABLE CHEST AP CLINICAL HISTORY: after intubation TECHNIQUE: 2D digital imaging was performed. COMPARISON: CR,XR XR PORTABLE CHEST AP from 10/25/2023 FINDINGS: The exam is limited by multiple overlying monitoring devices. The endotracheal tube remains at the level of the aortic arch. A nasogastric tube has been inserted, projecting below the diaphragm however the side port lies at the level of the diaphragm. Diffuse bilateral pulmonary infiltrates are again noted. Question of slight improvement compared to prior. IMPRESSION: Nasogastric tube should be advanced further into the stomach. Slight improvement bilateral severe pulmonary infiltrates. DATA REPOSITORY: RADIATION DOSE DELIVERED:
[2023-10-25] MEDS: POTASSIUM CHLORIDE 10 MEQ/100 ML BAG 100 MEQ IVPB (00:12)
[2023-10-25] MEDS: Normal Saline Flush 10 ML SYR IVP (00:13)
[2023-10-25] MEDS: Ondansetron 4 MG/2 ML VIAL (00:45)
[2023-10-25 01:43] LABS: PTT Activated 68.4 sec (23.6-32.8)
--- NOTE | 2023-10-25 01:45 | DI.RAD_ITS ---
Exam(s) XR PORTABLE CHEST AP EXAM: XR PORTABLE CHEST AP CLINICAL HISTORY: tube placement TECHNIQUE: 2D digital imaging was performed. COMPARISON: CR,XR XR PORTABLE CHEST AP from 10/24/2023 FINDINGS: Multiple low monitoring devices are positioned over the patient. An endotracheal tube is been placed which lies at the level of the aortic arch. Markedly increased diffuse bilateral pulmonary densities are now present. Findings could represent d iffuse alveolar edema versus bilateral pneumonia. IMPRESSION: Satisfactory placement of endotracheal tube. Severe bilateral pulmonary infiltrates. DATA REPOSITORY: RADIATION DOSE DELIVERED:
--- NOTE | 2023-10-25 02:00 | RT.EKG_ITS ---
APPROVED REPORT Exam: Resting ECG Reason for Exam: NSTEMI, post code Patient Location: I HR:70 bpm ECG Measurements Heart Rate 70 AXIS MT 224 P 0 QRSd 141 QRS 97 QT 341 T 117 QTc 368 Conclusion Ventricular-paced complexes...other complexes also detected No further rhythm analysis attempted due to paced rhythm Prolonged MT interval...MT >220, V-rate 50- 90 RBBB and LPFB...QRSd >120mS, axis(90,210) Inferior infarct, acute...ST>0.10mV, T upright, II III aVF
[2023-10-25 02:33] LABS: Anion Gap 19.5 mmol/L (3-11); BUN 65 mg/dL (7-18); CO2 16.5 mmol/L (21.0-32.0); CREATININE 2.6 mg/dL (0.55-1.02); Calcium 9.1 mg/dL (8.5-10.1); Chloride 101 mmol/L (98-107); Estimated GFR 18.67 (mL/min/1.73m2); Glucose 136 mg/dL (74-106); Magnesium 2.7 mg/dL (1.8-2.4); Sodium 137 mmol/L (136-145)
[2023-10-25 02:38] LABS: Troponin I 17512 ng/L (< or =60)
[2023-10-25 02:41] LABS: Potassium 4.6 mmol/L (3.5-5.1)
--- NOTE | 2023-10-25 02:46 | DI.VRAD_ITS ---
PROCEDURE INFORMATION: Exam: XR Chest Exam date and time: 10/25/2023 2:08 AM Age: 77 years old Clinical indication: Device placement; Other: Tube placement TECHNIQUE: Imaging protocol: Radiologic exam of the chest. Views: 1 view. COMPARISON: CR XR PORTABLE CHEST AP 10/24/2023 7:25 PM FINDINGS: Tubes, catheters and devices: Endotracheal tube in good position with the tip 3 cm above the jami. Cardiac pacemaker in place. Lungs: Interval development of severe diffuse bilateral pulmonary consolidation. Pleural spaces: Unremarkable. No pleural effusion. No pneumothorax. Heart/Mediastinum: Unremarkable. No cardiomegaly. Bones/joints: Unremarkable. IMPRESSION: Appropriate position of the endotracheal tube. Severe diffuse bilateral pulmonary consolidation compatible with pulmonary edema and/or pneumonia Dictated and Authenticated by: Manuel Hoover MD. Ordering:MARIJA Lima MD
[2023-10-25 02:59] LABS: BE (Venous) -18 mmol/L (-2-3); HCO3 (Venous) 14 mmol/L (23-28); O2 Sat (Venous) 84 %; TCO2 (Venous) 15 mmol/L (24-29); pO2 (Venous) 80 mmHg
[2023-10-25 03:00] LABS: pCO2 (Venous) 65 mmHg (41-51); pH (Venous) 6.95 (7.31-7.41)
--- NOTE | 2023-10-25 03:16 | ED.PROG_ITS ---
Date of service: 10/25/23 Time of Service: 03:16 Medical Decision Making 3:20 AM OLIVER VALIENTE was called, I went Within ER nurse and we both went to the ICU to assist. Patient was in cardiac arrest. I offered my assistance to the primary medicine team. Patient was in PEA, CPR was started, 2 rounds of CPR with epinephrine were initiated, patient eventually had ROSC. After ROSC the patient continued to be obtunded with no gag reflex. Pupils were nonreactive and slightly dilated. She did have spontaneous respirations though. Decision was made to secure the airway. Patient was intubated utilizing the glide scope without complication. 7.5 endotracheal tube was placed by myself, 22 cm at the teeth. It was secured in place. NG tube was placed by nursing staff. Shortly after this the patient went into cardiac arrest again, another 2 rounds of CPR was performed, 2-3 additional doses of epi were administered. Patient eventually achieved ROSC. Bedside echo demonstrates an ejection fraction of around 15%. Epinephrine drip was started. No evidence of pneumothorax on bedside echo. The decision to add a central line triple-lumen was made, unfortunately just prior to initial needle insertion the patient again arrested. 1-2 rounds of CPR were performed with 2 additional administrations of ep inephrine. Patient achieved ROSC. Immediately after which I was able to place a central line in the right internal jugular vein. Patient tolerated this well. Patient was now with a heart rate in the 80s, blood pressure was normotensive. Continued care was then deferred to primary medicine team. FINDINGS: Tubes, catheters and devices: Endotracheal tube in good position with the tip 3 cm above the jami. Cardiac pacemaker in place. Lungs: Interval development of severe diffuse bilateral pulmonary consolidation. Pleural spaces: Unremarkable. No pleural effusion. No pneumothorax. Heart/Mediastinum: Unremarkable. No cardiomegaly. Bones/joints: Unremarkable. IMPRESSION: Appropriate position of the endotracheal tube. Severe diffuse bilateral pulmonary consolidation compatible with pulmonary edema and/or pneumonia Thank you for allowing us to participate in the care of your patient. Dictated and Authenticated by: Manuel Hoover MD 10/25/2023 2:46 AM Eastern Time ([place] & [place]) Quality:SDOH Health Related Social Needs: No Data to Display Procedures Central Line Placement Right IJ: Time Out Performed: Yes Patient Placed on Monitor/Pulse Ox: Yes Prep: mask, gown and gloves Central Line Prep: Chlorhexidine scrub Ultrasound Used for Placement: Yes Central Line Lumen Inserted: triple Post Procedure: good blood return, all ports aspirated, flushed, capped and sutured in place with 2-0 silk Post Procedure X-Ray: tip of catheter in good position Patient Tolerated Procedure: well and no complications Complications: none Intubation Time out performed: Yes sedative: Etomidate Mg Given: 20 paralytic: Rocuronium Mg Given: 100 Laryngoscope: Rosa M ET Tube Size: 7.5 ET Tube Uncuffed: No Tube Secured Depth (cm): 22 Tube Secured Location: teeth Tube Placement Confirmation: visualized tube passing through cords, equal breath sounds bilaterally, no breath sounds over epigastrum and confirmation by capnometry Patient Tolerated Procedure: well and no complications Intubation Complications: none Critical Care Time Critical Care Time Critical Care Time: Yes Total Critical Care Time: 45 Attestation: Upon my evaluation, this patient had a high probability of imminent or life- threatening deterioration, which required my direct attention, intervention, and personal management. I have personally provided 45 minutes of critical care time exclusive of time spent on separately billable procedures. Time includes review of laboratory data, radiology results, discussion with consultants, and monitoring for potential decompensation. Interventions were performed as documented. Discharge Plan Disposition Patient Disposition: Admit to [facility] Condition: Serious Discharge Details Clinical Impression: Non-ST elevation CT (NSTEMI) Admit Date/Time: 10/24/23 20:44 Admit Provider: Clarence Newsome Attending Provider: Clarence Newsome Primary Care Provider: Maya Shi V ED Provider: Kyleigh Reyes Discharge Data Discharge Date/Time-TO BE ENTERED AT DEPARTURE: 10/24/23 22:36
--- NOTE | 2023-10-25 03:28 | NUR.NOTE ---
0143 PT found to have no pulse and code called. Pt being bagged and o2 turned [ads placed on PT. 0144 lost pt pulse 1mg epi given. line flushed. pulse josh 57 pt took a breath. [address] newsome and dr matthew at beside. chest compressions by Delonte Bianchi. bagged by yelena Lucas. RT called by switchboard. 0148 pulse found a carotid. more of an agonal breath. RSI kit obtained. per dr matthew prepare for intubation. 0151 ear probe on pt. 0152 122/55 pulse of [address] 78% o2 sat. pulse 100. pt bagged. 0154 20 of etomidate given with flush and pt repositioned 87% 100 rocuronium given follwed by flush. bp 74/65 0155 suction set up iv site has good blood return. 0157 92/70 ET tube placed by dr amtthew. 107p ET tube secured 0200 pulse 102 96/73 82% pads replaced. 0201 orders olaced in chart by Tasneem Eaton RN bedside ultrasound done by dr matthew. 0206 respiratory and information technology instructor at bedside. chest xray done. 0207 NG tube placed. 0208 ng tube 55 at nose in the left nare.by Prashanth DIAZ 0210 pt has a thready pulse CPR resumed by Adriana and Dr matthew capno attached 0211 no pulse pt is in PEA 0213 1mg epi given Adriana resumed CPR 0214 Delonte Bianchi preforming compressions 0215 pulse check no pulse. faint pulse in the carotid. CPR resumed. 0216 1mg epi given followed by flush CPR resumed [address] matthew pacer pads replaced. CPR resumed. 0218 1mg EPi given followed by flush 0219 1 amp of sodium bicard given flollowed by flush. 0220 pulse check 95 52/10 0221 107/88 pulse of 95. 0222 pulse 103 118/74 0223 central line kit being set up by dr tiff Newsome calling family. pupils dialated [address] matthew sterile 0228 pulse 60 paced 0229 no pulse cpr resumed 0231 1mg epi given followed by flush. 0232 pulse chech no pulse cpr resumed 0233 1mg epi in followed by flush 0234 one amp sodium bicard given 0235 faint pulse attempting central line 0236 pulse becoming more faint 56 0238 pulse 64 90/67 0241 central line placed by dr matthew. 0242 no pulse PEA on monitor. CPR resumed 1mg epi given followed by flush 0243 CPR by Millie FERGUSON RT at bedside 0244 pulse of 67 0245 CPR resumed 1mg epi in followed by flush 0247 rosc pulse 66 0248 Rad in for chest xray for line placement 0249 1mg epi in the central line followed by flush 0258 EKG complete 0259 no pulse CPR resumed 1mg epi given followed by flush 0301 1 amp of sodium bicarb in follwoed by flush 0302 1mg epi followed by flush CPR by Adriana/Millie 0304 pulse check no pulse 1mg epi given followed by flush family arrived cpr resumed 0306 pulse 71 family at bedside 168/22 0309 pulse 100 0311 167/126 pulse [address] newsome. faint pulse discussion with family . 0316 code called. monitors shut off. Nursing Note:
--- NOTE | 2023-10-25 03:31 | W.EVENT ---
Date of service: 10/25/23 Time of Service: 03:20 Event Note: Called at 1:40am to come to the ICU, rosa timothy called on my way up the stairs from the ED. compressions under way, RN had witnessed patient slumping to side of the bed unresponsive. See rosa blue notes for details, but brieftly the pateint was in PEA, ROSC attainted after compressions and epinephrine, but patient would then josh down and loose her pulse. This happened for nine rounds from 1:40am until the code was finally called after a discussion with the family at 3:16 as she was again loosing her pulse after the last time ROSC achieved. During the code, Dr. Espino performed the intubation, central line between codes. LVEF around 10% noted on POCUS, CXR and POCUS c/w pulmonary edema. Time Spent with Patient Time spent in critical care(minutes): 116 Time Spent Included: Chart review, Documenting critically ill care, Time at immediate bedside, Discussing critically ill care with other medical staff and Discussing Hx and/or treatment with family
--- NOTE | 2023-10-25 03:38 | W.PM.DDS ---
Date of service: 10/25/23 Time of Service: 03:52 Discharge Plan Disposition Patient Disposition: Condition: Serious Discharge Details Reason For Visit: NSTEMI Admit Date/Time: 10/24/23 20:44 Admit Provider: Clarence Newsome Attending Provider: Clarence Newsome Primary Care Provider: Maya Shi V Hospital Course Hospital Course: Patient admitted with NSTEMI after 2 days of right sided chest pain, ST depressions and troponins elevated. Had soft blood pressures but stabilized with small boluses of 500ml isotonic fluid. She was chest pain free in the ICU on heparin after getting loaded with clopidogrel, aspirin, atorvastatin. She was hypokalemic and was getting potassium. She did complain of nausea but not chest pain. Plan was to transfer to [facility] for catheterization in the morning. Around 1:40 am the RN witnessed patient slumping to side of the bed unresponsive. See code blue notes for details, but briefly the patient was in PEA, ROSC attainted after compressions and epinephrine, but patient would then josh down and loose her pulse. This happened for nine rounds from 1:40am until the code was finally called after a discussion with the family at 3:16 as she was again loosing her pulse after the last time ROSC achieved. During the code, Dr. Espino performed the intubation, central line between codes. LVEF around 10% noted on POCUS, CXR and POCUS c/w pulmonary edema. Troponins were >27K and pH was 6.9. Family was called and they did make it in time to see the 9th and last round of compressions and ROSC. After a discussion, when the patient began to loose her pulse again, her with the support of their daughter made the decision to not continue CPR. Home Meds and New Rx's Prescriptions: No Action metoprolol tartrate 50 mg tablet 50 mg PO DAILY capsaicin 0.1 % cream 1 applic topical TID PRN (Reason: pain relief) Qty: 60 3RF Rx Instructions: do not wash area for at least 30 min after application cholecalciferol (vitamin D3) 50 mcg (2,000 unit) capsule 50 mcg PO DAILY aspirin [Adult Low Dose Aspirin] 81 mg tablet,delayed release (DR/EC) 81 mg PO DAILY nitroglycerin [Nitrostat] 0.4 mg tablet, sublingual 0.4 mg sublingual .COMPLEX Rx Instructions: Dissolve 1 tablet under tongue as needed coenzyme Q10 30 mg capsule 30 mg PO DAILY acetaminophen [Tylenol Extra Strength] 500 mg tablet 1,000 mg PO .COMPLEX PRN Rx Instructions: 1,000 mg orally PRN; multivitamin Tablet 1 tab PO DAILY losartan 25 mg tablet 12.5 mg PO DAILY Patient Comments: TAKE 1 TABLET BY MOUTH TWICE DAILY furosemide 20 mg tablet 40 mg PO DAILY AM Patient Comments: TAKE 2 TABLETS BY MOUTH ONCE DAILY gabapentin 300 mg capsule 300 mg PO BID Patient Comments: TAKE 1 CAPSULE BY MOUTH TWICE DAILY anastrozole 1 mg tablet 1 mg PO DAILY AM Patient Comments: TAKE 1 TABLET BY MOUTH ONCE DAILY Levemir FlexTouch U100 Insulin 100 unit/mL (3 mL) insulin pen See Rx Instructions SUBCUT BID Rx Instructions: subcutaneously twice a day; 38u Qam and 36 Qpm Discharge Data Cause of : Myocardial infarction Discharge Date/Time-TO BE ENTERED AT DEPARTURE: 10/25/23 03:45 Discharge Sum: Prov Provider Primary care physician: Maya Shi MD Admitting clinician: Clarence Newsome Pronouncing clinician: Clarence Newsome Discharge Sum: Diag PCOD Cause of : Myocardial infarction Contributing Factors (1) Non-ST elevation [place] (NSTEMI): (2) Heart failure with reduced ejection fraction due to coronary artery disease: (3) Hypokalemia: (4) Type 2 diabetes mellitus with peripheral neuropathy: (5) CKD (chronic kidney disease): Discharge Sum: Summary Date and Time Admission Date: 10/24/23 Date of : 10/25/23 Time of : 03:16 Summary Details: Patient was admitted for NSTEMI, had witnessed event when she was unresponsive without a pulse. She underwent 9 rounds of CPR over 96 minutes before the effort was stopped after discussion with the family. See above hospital course and the nursing note with details of the code. Additional Data Family: at bedside Attending/PCP notified?: No Attending Physician: Clarence Newsome Was code activated?: Yes Autopsy requested?: No merchandise examiner notified?: No Advance directives: Yes Hospice patient?: No
--- NOTE | 2023-10-25 05:29 | DI.VRAD_ITS ---
PROCEDURE INFORMATION: Exam: XR Chest Exam date and time: 10/25/2023 2:28 AM Age: 77 years old Clinical indication: Device placement; Other: Tube placement, line placement TECHNIQUE: Imaging protocol: Radiologic exam of the chest. Views: 1 view. COMPARISON: CR XR PORTABLE CHEST AP 10/25/2023 2:08 AM FINDINGS: Tubes, catheters and devices: Cardiac pacer device with intact catheter and leads. Enteric tube traverses midline with side port projecting over the diaphragm. Endotracheal tube projecting 4.7 cm from the jami. Lungs: Diffuse airspace disease with mild improvement in aeration of the bilateral lung wolff. Pleural spaces: Unremarkable. No pleural effusion. No pneumothorax. Heart/Mediastinum: Unchanged cardiomediastinal silhouette. Bones/joints: Unchanged osseous structures. Soft tissues: Resuscitation padding appreciated over the patient chest. Postprocedural changes of the left chest wall. IMPRESSION: 1. Medical devices as above, recommend advancement of enteric tube. 2. Mild improvement in aeration of the bilateral lung wolff from most recent prior comparison. Dictated and Authenticated by: Haroon Dong MD. Ordering:MARIJA Lima MD
== END 2023-10-25 03:45 | disposition expired ==
LOC: ER 21:03 → ICU 22:23
PROVIDERS: Admitting Provider Family Medicine; Emergency Provider Nurse Practitioner Acute Care; PCP Family Medicine; Visit Provider Family Medicine
DX: I21.4 Non-ST elevation (NSTEMI) myocardial infarction (principal); I13.0 Hypertensive heart and chronic kidney disease with heart failure and stage 1 through stage 4 chronic kidney disease, or unspecified chronic kidney disease; I50.20 Unspecified systolic (congestive) heart failure; N18.4 Chronic kidney disease, stage 4 (severe); I25.10 Atherosclerotic heart disease of native coronary artery without angina pectoris; L97.519 Non-pressure chronic ulcer of other part of right foot with unspecified severity; E11.42 Type 2 diabetes mellitus with diabetic polyneuropathy; E87.6 Hypokalemia; E11.22 Type 2 diabetes mellitus with diabetic chronic kidney disease; I73.9 Peripheral vascular disease, unspecified; Z95.5 Presence of coronary angioplasty implant and graft; Z95.0 Presence of cardiac pacemaker; N20.0 Calculus of kidney; R91.8 Other nonspecific abnormal finding of lung field; E04.9 Nontoxic goiter, unspecified; E53.8 Deficiency of other specified B group vitamins; K59.00 Constipation, unspecified; E78.5 Hyperlipidemia, unspecified; Z79.4 Long term (current) use of insulin; I46.2 Cardiac arrest due to underlying cardiac condition
CPT/HCPCS: 31500; 36556; 00123; 36415; 80048; 80053; 82805; 93005; 96361; 96374; 96375; 99285; 99291; 71045; 83735; 83880; 84484; 85025; 85610; 85730; 93010; 94002; J1644; J1815; J2270; J2405; J3480